=== PATIENT | male | born 1990 | race Caucasian/White ===

== ENCOUNTER 2018-09-19 08:04 | Emergency (ER) | payer OTHER, SELFPAY ==
[2018-09-19] MEDS ORDERED: LORazepam 2 MG/ML VIAL ONE ×2 (08:28→10:26)
[2018-09-19] MEDS ORDERED: NA CHLORIDE 0.9% 1,000 ML ONE ×2 (08:28→10:26)
[2018-09-19] MEDS ORDERED: FOLIC ACID 1 MG, THIAMINE HCL 100 MG, MULTIVITAMINS INJ 10 ML in NA CHLORIDE 0.9% 1,000 ML IV ONE (08:30)
[2018-09-19 08:47] LABS: Urine Blood NEGATIVE (NEG); Urine Glucose NEGATIVE (NEG); Urine Protein NEGATIVE (NEG); Urine Specific Gravity 1.015 (1.005-1.030); Urine pH 7.5 (5.0-7.0)
[2018-09-19 08:53] LABS: Barbiturates NEGATIVE (NEGATIVE); Benzodiazepines NEGATIVE (NEGATIVE); Cocaine NEGATIVE (NEGATIVE); METHAMPHETAM NEGATIVE (NEGATIVE); Methadone NEGATIVE (NEGATIVE); Opiates NEGATIVE (NEGATIVE); Phencyclidine NEGATIVE (NEGATIVE); THC Cannibis NEGATIVE (NEGATIVE)
[2018-09-19 08:55] LABS: Protime INR 1.05
[2018-09-19 09:03] LABS: Absolute Lymphocytes (CBC) 1.4 K/uL (0.7-4.9); Absolute Monocytes 0.8 K/uL (0.1-1.3); Absolute Neutrophil 5.8 K/uL (1.8-8.0); Basophils % 0.6 % (0-1.3); Eosinophils % 1.5 % (0-4.4); Hematocrit 39.3 % (39.6-49.0); Lymphocytes % 16.9 % (15.3-44.8); MCH 32.8 pg (27.0-35.0); MCV 90.5 fL (80-100); Monocytes % 9.6 % (3.3-12.3); RBC Red Blood Cell Count 4.34 M/uL (4.33-5.43)
[2018-09-19 09:06] LABS: ALT/SGPT 31 U/L (12-78); AST/SGOT 18 U/L (15-37); Albumin 3.6 g/dL (3.4-5.0); Alkaline Phosphatase 76 U/L (45-117); BUN Blood Urea Nitrogen 6 mg/dL (7-18); Bicarbonate 24 mmol/L (21-32); Bilirubin Direct 0.2 mg/dL (0-0.2); Bilirubin Total 0.7 mg/dL (0.2-1.0); Glucose Level 86 mg/dL (74-106); Potassium 3.8 mmol/L (3.5-5.1); Protein, Total 6.8 g/dL (6.4-8.2); Sodium Level 134 mmol/L (136-145); Troponin (Emerg Dept Use Only) < 0.02 ng/mL (0.0-0.045)
[2018-09-19] MEDS ORDERED: DIPHENHYDRAMINE 50 MG/ML VIAL ONE (10:30)
--- NOTE | 2018-09-19 10:37 | EKG ---
Test Date: 2018-09-19 Test Time: 08:10:35 Mice Raiser: MIRTA MEASUREMENT RESULTS: Intervals: Rate: 111 NE: 178 QRSD: 90 QT: 318 QTc: 432 [place]: P: 56 NE: 178 QRS: 75 T: 50 INTERPRETIVE STATEMENTS: Sinus tachycardia Otherwise normal ECG Compared to ECG 08/18/2017 22:19:40 Sinus rhythm no longer present Electronically Signed On 09-19-18 10:37:07 RATCHET SETTER by Tyree Ortiz
--- NOTE | 2018-09-19 13:08 | ER ---
Nurse's Notes [facility] Name: Philip Saldaña Age: 28 yrs Sex: Male : 1990 Arrival Date: 09/19/2018 Time: 08:03 Bed 7 Private MD: Diagnosis: Alcohol abuse;Alcohol abuse counseling and surveillance;Alcohol dependence with alcohol-induced anxiety disorder Presentation: 09/19 08:05 Presenting complaint: EMS states: ishmael been drinking for 3 days and my last drink is hj last night with beer; been complaining of chest pressure and shakiness; reports tachycardia on EKG to 120's;. Transition of care: patient was not received from another setting of care. Onset of symptoms was September 19, 2018. Risk Assessment: Do you want to hurt yourself or someone else? Patient reports no desire to harm self or others. Initial Sepsis Screen: Does the patient meet any 2 criteria? No. Patient's initial sepsis screen is negative. Does the patient have a suspected source of infection? No. Patient's initial sepsis screen is negative. Care prior to arrival: Medication(s) given: Normal saline infusion, 500 mL, IV initiated. 20 GA, in the right antecubital area. 08:05 Method Of Arrival: EMS: [facility] 08:05 Acuity: KASSIDY 3 hj Triage Assessment: 08:10 General: Appears in no apparent distress. uncomfortable, Behavior is calm, cooperative, hj appropriate for age. Pain: Complains of pain in chest Pain currently is 6 out of 10 on a pain scale. EENT: No signs and/or symptoms were reported regarding the EENT system. Neuro: Level of Consciousness is awake, alert, obeys commands, Oriented to person, place, time, situation, Appropriate for age. Cardiovascular: Capillary refill < 3 seconds Patient's skin is warm and dry. Respiratory: Airway is patent Respiratory effort is even, unlabored, Respiratory pattern is regular, symmetrical. GI: No signs and/or symptoms were reported involving the gastrointestinal system. : No signs and/or symptoms were reported regarding the genitourinary system. Derm: No signs and/or symptoms reported regarding the dermatologic system. Musculoskeletal: No signs and/or symptoms reported regarding the musculoskeletal system. Historical: - Allergies: 08:10 Sulfa (Sulfonamide Antibiotics); hj - Home Meds: 08:10 Omeprazole Oral once daily [Active]; hj - PMHx: 08:10 Alcoholism; Anxiety; HYPOGLYCEMIA; hj - PSHx: 08:10 nose; hj - Immunization history:: Adult Immunizations up to date. - Social history:: Smoking status: Patient/guardian denies using tobacco, Patient uses alcohol, on a daily basis. patient/guardian reports chronic longstanding heavy alcohol consumption. - Ebola Screening: : Patient negative for fever greater than or equal to 101.5 degrees Fahrenheit, and additional compatible Ebola Virus Disease symptoms Patient denies exposure to infectious person Patient denies travel to an Ebola-affected area in the 21 days before illness onset. Screenin:12 Abuse screen: Denies threats or abuse. Denies injuries from another. Nutritional hj screening: No deficits noted. Tuberculosis screening: No symptoms or risk factors identified. Fall Risk None identified. Assessment: 08:13 Pain: Pain does not radiate. Pain began suddenly. hj 08:15 Reassessment: see triage for assessment;. hj 09:30 Reassessment: Patient and/or family updated on plan of care and expected duration. Pain hj level reassessed. Patient is alert, oriented x 3, equal unlabored respirations, skin warm/dry/pink. Patient states feeling better. Patient states symptoms have improved. 10:14 Reassessment: Patient and/or family updated on plan of care and expected duration. Pain hj level reassessed. Patient is alert, oriented x 3, equal unlabored respirations, skin warm/dry/pink. states: "something stuck on my throat" pt is eating eggs from hosp breakfast tray;. 10:40 Reassessment: Patient and/or family updated on plan of care and expected duration. Pain hj level reassessed. Patient is alert, oriented x 3, equal unlabored respirations, skin warm/dry/pink. medicated and states: I think i feel better now" Patient states feeling better. Patient states symptoms have improved. 11:00 Reassessment: pt wheeled to the bathroom;. hj 11:05 Reassessment: Patient and/or family updated on plan of care and expected duration. Pain hj level reassessed. Patient is alert, oriented x 3, equal unlabored respirations, skin warm/dry/pink. back to room;. 12:24 Reassessment: Patient and/or family updated on plan of care and expected duration. Pain hj level reassessed. Patient is alert, oriented x 3, equal unlabored respirations, skin warm/dry/pink. to finished banana bag and pt can be discharged;. 13:39 Reassessment: D/C instructions given;. hj Vital Signs: 08:04 BP 140 / 80; Pulse 115; Resp 18; Temp 98.2(O); Pulse Ox 100% on R/A; Weight 72.57 kg; hj Height 6 ft. 0 in. (182.88 cm); Pain 6/10; 09:10 BP 137 / 83; Pulse 106; Resp 18; Pulse Ox 100% on R/A; hj 10:06 BP 103 / 77; Pulse 145; Resp 18; Pulse Ox 93% on R/A; hj 10:25 BP 123 / 88; Pulse 120; Resp 18; Pulse Ox 100% on 2 lpm NC; hj 10:40 BP 122 / 93; Pulse 111; Resp 18; Pulse Ox 100% on 2 lpm NC; hj 12:23 BP 132 / 95; Pulse 115; Resp 18; Pulse Ox 100% on 2 lpm NC; hj 13:39 BP 130 / 89; Pulse 98; Resp 18; Pulse Ox 100% on R/A; hj 08:04 Body Mass Index 21.70 (72.57 kg, 182.88 cm) hj 10:06 notified; states: "something stuck on my throat", pt ate eggs from hosp breakfast hj tray; ED Course: 08:03 Patient arrived in ED. hj 08:07 Triage completed. hj 08:08 Beck Sheridan RN is Primary Nurse. hj 08:11 Koby Pierson PA is PHCP. jr8 08:11 Akhil Harris MD is Attending Physician. jr8 08:12 Arm band placed on right wrist. hj 08:13 Patient has correct armband on for positive identification. Bed in low position. Call light in reach. Side rails up X 1. Adult w/ patient. allocations clerk on. 08:13 Patient maintains SpO2 saturation greater than 95% on room air. hj 08:18 EKG done, by tractor technician. reviewed by Koby CARDENAS. at1 08:18 Maintain EMS IV. Dressing intact. Good blood return noted. Site clean \\T\\ dry. Gauge \\T\\ hj site: 18 g R AC. 08:23 Initial lab(s) drawn, by me, sent to lab. 3 08:34 Urine Drug Screen Sent. hj 13:45 No provider procedures requiring assistance completed. IV discontinued, intact, hj bleeding controlled, No redness/swelling at site. Pressure dressing applied. Administered Medications: 08:14 Drug: NS 0.9% 1000 ml Route: IV; Rate: 1000 ml; Site: right antecubital; hj 09:30 Follow up: IV Status: Completed infusion hj 08:14 Drug: Ativan 2 mg Route: IVP; Site: right antecubital; hj 08:28 Follow up: Response: No adverse reaction; Anxiety decreased hj 09:09 Drug: Banana Bag - (NS 0.9% 1000 ml, foLIC Acid 1 mg, Thiamine 100 mg, Multivitamin 1 hj amp) Route: IV; Rate: calculated rate; Site: right antecubital; 13:41 Follow up: IV Status: Completed infusion hj 10:18 Drug: NS 0.9% 1000 ml Route: IV; Rate: 125 ml/hr; Site: right antecubital; hj 13:40 Follow up: IV Status: Completed infusion; provider ordered to bolus remaining NS' hj 10:18 Drug: Ativan 2 mg Route: IVP; Site: right antecubital; hj 10:43 Follow up: Response: No adverse reaction hj 10:20 Drug: Benadryl 25 mg Route: IVP; Site: right antecubital; hj 10:43 Follow up: Response: No adverse reaction hj Intake: Outcome: 13:08 Discharge ordered by . louise 13:45 Discharged to home ambulatory, with family. hj 13:45 Condition: stable 13:45 Discharge instructions given to patient, Instructed on discharge instructions, follow up and referral plans. medication usage, Demonstrated understanding of instructions, follow-up care, medications, Prescriptions given X 1. 13:46 Patient left the ED. Signatures: Koby Pierson PA PA jr8 Lyn Garzon, marriage therapist EKG Tat1 Beck Sheridan, CRIS RN Opal Harrington 3 Corrections: (The following items were deleted from the chart) 10:14 10:06 BP 103 / 77; Pulse 145bpm; Resp 18bpm; Pulse Ox 100% RA; notifie; hj hj 10:25 10:06 BP 103 / 77; Pulse 145bpm; Resp 18bpm; Pulse Ox 100% RA; notified; states: hj "something stuck on my throat", pt ate eggs from hosp breakfast tray;; hj
--- NOTE | 2018-09-19 13:09 | EDPHYS ---
Physician Documentation [facility] Name: Philip Saldaña Age: 28 yrs Sex: Male : 1990 Arrival Date: 09/19/2018 Time: 08:03 Bed 7 Private MD: ED Physician Akhil Harris HPI: 09/19 08:22 This 28 yrs old Male presents to ER via EMS with complaints of Chest jr8 Pressure, Vomiting. 08:22 Patient with longstanding history of alcoholism and abuse. Stated that he had been off jr8 of alcohol for a few months but just got off of a 3 day binge. Stated that last drink was yesterday morning sometime. Today with shaking, chest pressure. n/v, anxiety. Denies drug abuse. Onset: The symptoms/episode began/occurred suddenly, today. Severity of symptoms: At their worst the symptoms were moderate in the emergency department the symptoms are unchanged. The patient has experienced similar episodes in the past, a few times. The patient has not recently seen a physician. Historical: - Allergies: 08:10 Sulfa (Sulfonamide Antibiotics); hj - Home Meds: 08:10 Omeprazole Oral once daily [Active]; hj - PMHx: 08:10 Alcoholism; Anxiety; HYPOGLYCEMIA; hj - PSHx: 08:10 nose; hj - Immunization history:: Adult Immunizations up to date. - Social history:: Smoking status: Patient/guardian denies using tobacco, Patient uses alcohol, on a daily basis. patient/guardian reports chronic longstanding heavy alcohol consumption. - Ebola Screening: : Patient negative for fever greater than or equal to 101.5 degrees Fahrenheit, and additional compatible Ebola Virus Disease symptoms Patient denies exposure to infectious person Patient denies travel to an Ebola-affected area in the 21 days before illness onset. ROS: 08:22 Eyes: Negative for injury, pain, redness, and discharge, ENT: Negative for injury, jr8 pain, and discharge, Neck: Negative for injury, pain, and swelling, Respiratory: Negative for shortness of breath, cough, wheezing, and pleuritic chest pain, Back: Negative for injury and pain, MS/Extremity: Negative for injury and deformity, Skin: Negative for injury, rash, and discoloration, Neuro: Negative for headache, weakness, numbness, tingling, and seizure. 08:22 Cardiovascular: Positive for chest pain, Negative for edema, orthopnea, palpitations, paroxysmal nocturnal dyspnea. 08:22 Abdomen/GI: Positive for nausea and vomiting, Negative for abdominal pain, diarrhea, constipation, abdominal cramps, abdominal distension, anorexia, dysphagia, hematemesis, black/tarry stool, rectal pain, rectal bleeding, bowel incontinence, flatulence. 08:22 Psych: Positive for anxiety, alcohol dependence, Negative for auditory hallucinations, visual hallucinations, homicidal ideation, suicide gesture, suicidal ideation. Exam: 08:22 Eyes: Pupils equal round and reactive to light, extra-ocular motions intact. Lids and jr8 lashes normal. Conjunctiva and sclera are non-icteric and not injected. Cornea within normal limits. Periorbital areas with no swelling, redness, or edema. ENT: Nares patent. No nasal discharge, no septal abnormalities noted. Tympanic membranes are normal and external auditory canals are clear. Oropharynx with no redness, swelling, or masses, exudates, or evidence of obstruction, uvula midline. Mucous membranes moist. Neck: Trachea midline, no thyromegaly or masses palpated, and no cervical lymphadenopathy. Supple, full range of motion without nuchal rigidity, or vertebral point tenderness. No Meningismus. Respiratory: Lungs have equal breath sounds bilaterally, clear to auscultation and percussion. No rales, rhonchi or wheezes noted. No increased work of breathing, no retractions or nasal flaring. Abdomen/GI: Soft, non-tender, with normal bowel sounds. No distension or tympany. No guarding or rebound. No evidence of tenderness throughout. Back: No spinal tenderness. No costovertebral tenderness. Full range of motion. Skin: Warm, dry with normal turgor. Normal color with no rashes, no lesions, and no evidence of cellulitis. MS/ Extremity: Pulses equal, no cyanosis. Neurovascular intact. Full, normal range of motion. Neuro: Awake and alert, GCS 15, oriented to person, place, time, and situation. Cranial nerves II-XII grossly intact. Motor strength 5/5 in all extremities. Sensory grossly intact. Cerebellar exam normal. Normal gait. Resting tremor present 08:22 Constitutional: The patient appears alert, awake, anxious, restless. 08:22 Cardiovascular: Rate: tachycardic, Rhythm: regular, Pulses: Pulses are 2+ in right radial artery and left radial artery. Heart sounds: normal, normal S1and S2, no S3 or S4, no murmur, no rub, no gallop, Edema: is not appreciated, JVD: is not appreciated. 08:27 ECG was reviewed by the Attending Physician. jr8 Vital Signs: 08:04 BP 140 / 80; Pulse 115; Resp 18; Temp 98.2(O); Pulse Ox 100% on R/A; Weight 72.57 kg; hj Height 6 ft. 0 in. (182.88 cm); Pain 6/10; 09:10 BP 137 / 83; Pulse 106; Resp 18; Pulse Ox 100% on R/A; hj 10:06 BP 103 / 77; Pulse 145; Resp 18; Pulse Ox 93% on R/A; hj 10:25 BP 123 / 88; Pulse 120; Resp 18; Pulse Ox 100% on 2 lpm NC; hj 10:40 BP 122 / 93; Pulse 111; Resp 18; Pulse Ox 100% on 2 lpm NC; hj 12:23 BP 132 / 95; Pulse 115; Resp 18; Pulse Ox 100% on 2 lpm NC; hj 13:39 BP 130 / 89; Pulse 98; Resp 18; Pulse Ox 100% on R/A; hj 08:04 Body Mass Index 21.70 (72.57 kg, 182.88 cm) hj 10:06 MD notified; states: "something stuck on my throat", pt ate eggs from hosp breakfast hj tray; MDM: 08:11 Patient medically screened. jr8 13:06 Data reviewed: vital signs, nurses notes, lab test result(s), EKG. Data interpreted: jr8 Pulse oximetry: on room air is 100 %. Interpretation: normal. Counseling: I had a detailed discussion with the patient and/or guardian regarding: the historical points, exam findings, and any diagnostic results supporting the discharge/admit diagnosis, lab results, the need for outpatient follow up, a family practitioner, to return to the emergency department if symptoms worsen or persist or if there are any questions or concerns that arise at home. Response to treatment: the patient's symptoms have markedly improved after treatment, patient is well hydrated. 13:13 ED course: Patient feeling much better. No longer with resting tremor. Anxiety gone. HR jr8 markedly decreased. Wants to go home. Will put on Librium for detox. To come back if worse. . 09/19 08:11 Order name: Acetaminophen; Complete Time: 09:13 [facility] 09/19 08:11 Order name: Basic Metabolic Panel; Complete Time: 09:13 8 09/19 08:11 Order name: CBC with Diff; Complete Time: 09:13 8 09/19 08:11 Order name: ETOH Level; Complete Time: 08:48 8 09/19 08:11 Order name: Hepatic Function; Complete Time: 09:13 [facility] 09/19 08:11 Order name: PT-INR; Complete Time: 09:13 8 09/19 08:11 Order name: Ptt, Activated; Complete Time: 09: [facility] 09/19 08:11 Order name: Salicylate; Complete Time: 09:13 [facility] 09/19 08:11 Order name: Urine Drug Screen; Complete Time: 09:13 [facility] 09/19 08:11 Order name: Troponin (emerg Dept Use Only); Complete Time: 09:13 [facility] 09/19 08:36 Order name: Urine Dipstick--Ancillary (enter results); Complete Time: 08:48 09/19 08:11 Order name: EKG; Complete Time: 08:12 [facility] 09/19 08:11 Order name: EKG - Nurse/Tech; Complete Time: 08:14 [facility] 09/19 08:11 Order name: IV Saline Lock; Complete Time: 08:14 [facility] 09/19 08:11 Order name: Labs collected and sent; Complete Time: 08:26 [facility] 09/19 08:11 Order name: Urine Dipstick-Ancillary (obtain specimen); Complete Time: 08:34 [facility] 09/19 08:45 Order name: Diet Regular; Complete Time: 08:46 EC:27 Rate is 111 beats/min. Rhythm is regular, Sinus tachycardia. [place] interval is normal at jr8 178 msec. QRS interval is normal at 90 msec. QT interval is normal at 432 msec. No Q waves. T waves are Normal. No ST changes noted. Clinical impression: Sinus tachycardia. Interpreted by me. Reviewed by me. Administered Medications: 08:14 Drug: NS 0.9% 1000 ml Route: IV; Rate: 1000 ml; Site: right antecubital; hj 09:30 Follow up: IV Status: Completed infusion hj 08:14 Drug: Ativan 2 mg Route: IVP; Site: right antecubital; hj 08:28 Follow up: Response: No adverse reaction; Anxiety decreased hj 09:09 Drug: Banana Bag - (NS 0.9% 1000 ml, foLIC Acid 1 mg, Thiamine 100 mg, Multivitamin 1 hj amp) Route: IV; Rate: calculated rate; Site: right antecubital; 13:41 Follow up: IV Status: Completed infusion hj 10:18 Drug: NS 0.9% 1000 ml Route: IV; Rate: 125 ml/hr; Site: right antecubital; hj 13:40 Follow up: IV Status: Completed infusion; provider ordered to bolus remaining NS' hj 10:18 Drug: Ativan 2 mg Route: IVP; Site: right antecubital; hj 10:43 Follow up: Response: No adverse reaction hj 10:20 Drug: Benadryl 25 mg Route: IVP; Site: right antecubital; hj 10:43 Follow up: Response: No adverse reaction hj Disposition: 15:44 Co-signature as Attending Physician, Akhil Harris MD. rn Disposition: 09/19/18 13:08 Discharged to Home. Impression: Alcohol abuse, Alcohol abuse counseling and surveillance, Alcohol dependence with alcohol-induced anxiety disorder. - Condition is Stable. - Discharge Instructions: Alcohol Intoxication, Alcohol Use Disorder. - Prescriptions for chlordiazepoxide HCl 25 mg Oral capsule - take 2 capsule by ORAL route 4 times per day As needed up to 300 mg/day; 60 capsule. - Medication Reconciliation Form, Thank You Letter, Antibiotic Education, Prescription Opioid Use form. - Follow up: Private Physician; When: 1 - 2 days; Reason: Recheck today's complaints, Continuance of care, Re-evaluation by your physician. - Problem is new. - Symptoms have improved. Signatures: Dispatcher [employer] EDMS Akhil Harris MD MD rn Roszak, Josh, PA PA jr8 Beck Sheridan RN RN hj Corrections: (The following items were deleted from the chart) 13:46 13:08 09/19/2018 13:08 Discharged to Home. Impression: Alcohol abuse; Alcohol abuse hj counseling and surveillance; Alcohol dependence with alcohol-induced anxiety disorder. Condition is Stable. Forms are Medication Reconciliation Form, Thank You Letter, Antibiotic Education, Prescription Opioid Use. Follow up: Private Physician; When: 1 - 2 days; Reason: Recheck today's complaints, Continuance of care, Re-evaluation by your physician. Problem is new. Symptoms have improved. jr8
== END 2018-09-19 13:46 | disposition home or self-care (01) ==
LOC: ER 08:04
DX: F10.280 Alcohol dependence with alcohol-induced anxiety disorder (principal); F10.20 Alcohol dependence, uncomplicated; Z71.41 Alcohol abuse counseling and surveillance of alcoholic; Z88.2 Allergy status to sulfonamides
CPT/HCPCS: 36415; 80048; 80076; 80307; 80320; 80329; 81003; 84484; 85025; 85610; 85730; 93005; 96361; 96365; 96366; 96375; 99285; J3411; J7030

== ENCOUNTER 2019-07-31 04:24 | Emergency (ER) | payer OTHER ==
[2019-07-31] MEDS ORDERED: MAGNE/ALUM HYDROXD 30 ML UCUP ONE (04:47)
[2019-07-31] MEDS ORDERED: LIDOCAINE VISCOUS 2% SOLN 15 ML UDC ONE (04:48)
[2019-07-31] MEDS ORDERED: PANTOPRAZOLE 40MG TABLET PO ONE (04:48)
--- NOTE | 2019-07-31 05:41 | ER ---
Nurse's Notes [facility] Name: Philip Saldaña Age: 29 yrs Sex: Male : 1990 Arrival Date: 07/31/2019 Time: 04:25 Bed 18 Private MD: Diagnosis: Gastritis, unspecified Presentation: 07/31 04:38 Presenting complaint: Patient states: He is a binge drinker, been drinking for 3 days wh without eating much. Now C/O acid reflux, nausea and vomiting. Pt has HX of GERD and Alcohol abuse taking Omeprazole. Transition of care: patient was not received from another setting of care. Onset of symptoms was July 31, 2019. Risk Assessment: Do you want to hurt yourself or someone else? Patient reports no desire to harm self or others. Initial Sepsis Screen: Does the patient meet any 2 criteria? No. Patient's initial sepsis screen is negative. Does the patient have a suspected source of infection? No. Patient's initial sepsis screen is negative. Care prior to arrival: None. 04:38 Method Of Arrival: Ambulatory 04:38 Acuity: KASSIDY 3 Historical: - Allergies: 04:47 Sulfa (Sulfonamide Antibiotics); - Home Meds: 04:47 Omeprazole Oral [Active]; - PMHx: 04:47 Anxiety; HYPOGLYCEMIA; Alcoholism; GERD; - PSHx: 04:47 None; - Immunization history:: Adult Immunizations up to date. - Social history:: Smoking status: Patient uses tobacco products, Patient uses alcohol, patient/guardian reports recent binge of alcohol consumption. - Ebola Screening: : Patient negative for fever greater than or equal to 101.5 degrees Fahrenheit, and additional compatible Ebola Virus Disease symptoms Patient denies exposure to infectious person. Screenin:46 Abuse screen: Denies threats or abuse. Denies injuries from another. Nutritional screening: No deficits noted. Tuberculosis screening: No symptoms or risk factors identified. Fall Risk None identified. Assessment: 04:48 General: Appears in no apparent distress. Behavior is calm, cooperative, appropriate wh for age, Smells of alcohol. Pain: Complains of pain in epigastric area Pain does not radiate. Pain currently is 8 out of 10 on a pain scale. Quality of pain is described as burning, Pain began 1 day ago. Neuro: Level of Consciousness is awake, alert, obeys commands, Oriented to person, place, time, situation, Appropriate for age. Cardiovascular: Heart tones S1 S2. Respiratory: Airway is patent Respiratory effort is even, unlabored, Respiratory pattern is regular, symmetrical, Breath sounds are clear bilaterally. GI: Abdomen is flat, non-distended, Abd is soft and non tender X 4 quads. : No signs and/or symptoms were reported regarding the genitourinary system. EENT: No signs and/or symptoms were reported regarding the EENT system. Derm: Skin is intact, is healthy with good turgor, Skin is pink, warm \T\ dry. normal. Musculoskeletal: Circulation, motion, and sensation intact. 05:50 Reassessment: Patient appears in no apparent distress at this time. No changes from previously documented assessment. Patient and/or family updated on plan of care and expected duration. Pain level reassessed. Patient is alert, oriented x 3, equal unlabored respirations, skin warm/dry/pink. Patient states feeling better. Patient states symptoms have improved. Vital Signs: 04:40 BP 125 / 72; Pulse 18; Resp 18; Temp 98.7; Pulse Ox 99% ; Weight 77.11 kg; Height 6 ft. (182.88 cm); 05:49 BP 119 / 75; Pulse 92; Resp 18; Pulse Ox 98% on R/A; 04:40 Body Mass Index 23.06 (77.11 kg, 182.88 cm) ED Course: 04:25 Patient arrived in ED. ds1 04:33 Fariha Schaeffer is Primary Nurse. wh 04:40 Triage completed. 04:41 Todd Patel MD is Attending Physician. tw4 04:47 Patient has correct armband on for positive identification. Bed in low position. Call light in reach. Side rails up X 1. Pulse ox on. NIBP on. 04:48 Arm band placed on right wrist. 05:48 No provider procedures requiring assistance completed. Patient did not have IV access during this emergency room visit. Administered Medications: 04:51 Drug: GI Cocktail without - (Maalox Suspension 30 ml, Lidocaine Liquid 2 % 15 ea ml) Route: PO; 05:48 Follow up: Response: No adverse reaction; Pain is decreased 04:51 Drug: ProTONIX 40 mg Route: PO; moe 05:49 Follow up: Response: No adverse reaction; Pain is decreased Outcome: 05:40 Discharge ordered by tw4 05:48 Discharged to home ambulatory. 05:48 Condition: stable 05:48 Discharge instructions given to patient, Instructed on discharge instructions, follow up and referral plans. medication usage, POC Acute Gastritis and Alcohol Abuse Demonstrated understanding of instructions, follow-up care, medications, POC Prescriptions given X 1. 05:49 Patient left the ED. Signatures: Angy Da Silva ds1 Cande Jin, RN Fariha Flores ea Todd Patel MD MD tw4
--- NOTE | 2019-07-31 05:41 | EDPHYS ---
Physician Documentation [facility] Name: Philip Saldaña Age: 29 yrs Sex: Male : 1990 Arrival Date: 07/31/2019 Time: 04:25 Bed 18 Private MD: ED Physician Todd Patel HPI: 07/31 05:38 This 29 yrs old Male presents to ER via Ambulatory with complaints of Alcohol tw4 Withdrawal, Pain with Breathing. 05:38 The patient presents with abdominal pain. Onset: The symptoms/episode began/occurred tw4 today. The symptoms do not radiate. Associated signs and symptoms: Pertinent positives: nausea, Pertinent negatives: vomiting, vomiting blood. The symptoms are described as burning. Modifying factors: The symptoms are alleviated by nothing, the symptoms are aggravated by alcohol. Severity of pain: At its worst the pain was mild in the emergency department the pain is unchanged. The patient has not experienced similar symptoms in the past. Historical: - Allergies: 04:47 Sulfa (Sulfonamide Antibiotics); - Home Meds: 04:47 Omeprazole Oral [Active]; - PMHx: 04:47 Anxiety; HYPOGLYCEMIA; Alcoholism; GERD; - PSHx: 04:47 None; - Immunization history:: Adult Immunizations up to date. - Social history:: Smoking status: Patient uses tobacco products, Patient uses alcohol, patient/guardian reports recent binge of alcohol consumption. - Ebola Screening: : Patient negative for fever greater than or equal to 101.5 degrees Fahrenheit, and additional compatible Ebola Virus Disease symptoms Patient denies exposure to infectious person. ROS: 05:38 Constitutional: Negative for fever, chills, and weight loss, Eyes: Negative for injury, tw4 pain, redness, and discharge, Cardiovascular: Negative for chest pain, palpitations, and edema, Respiratory: Negative for shortness of breath, cough, wheezing, and pleuritic chest pain, Back: Negative for injury and pain, MS/Extremity: Negative for injury and deformity, Skin: Negative for injury, rash, and discoloration, Neuro: Negative for headache, weakness, numbness, tingling, and seizure. 05:38 Abdomen/GI: Positive for abdominal cramps. Exam: 05:38 Constitutional: This is a well developed, well nourished patient who is awake, alert, tw4 and in no acute distress. Head/Face: Normocephalic, atraumatic. Chest/axilla: Normal chest wall appearance and motion. Nontender with no deformity. No lesions are appreciated. Cardiovascular: Regular rate and rhythm with a normal S1 and S2. No gallops, murmurs, or rubs. Normal PMI, no JVD. No pulse deficits. Respiratory: Lungs have equal breath sounds bilaterally, clear to auscultation and percussion. No rales, rhonchi or wheezes noted. No increased work of breathing, no retractions or nasal flaring. Abdomen/GI: Soft, non-tender, with normal bowel sounds. No distension or tympany. No guarding or rebound. No evidence of tenderness throughout. Back: No spinal tenderness. No costovertebral tenderness. Full range of motion. MS/ Extremity: Pulses equal, no cyanosis. Neurovascular intact. Full, normal range of motion. Neuro: Awake and alert, GCS 15, oriented to person, place, time, and situation. Cranial nerves II-XII grossly intact. Motor strength 5/5 in all extremities. Sensory grossly intact. Cerebellar exam normal. Normal gait. Vital Signs: 04:40 BP 125 / 72; Pulse 18; Resp 18; Temp 98.7; Pulse Ox 99% ; Weight 77.11 kg; Height 6 ft. wh (182.88 cm); 05:49 BP 119 / 75; Pulse 92; Resp 18; Pulse Ox 98% on R/A; wh 04:40 Body Mass Index 23.06 (77.11 kg, 182.88 cm) MDM: 04:41 Patient medically screened. tw4 05:38 Differential diagnosis: gastritis, gastroesophageal reflux disease, GI Bleed, tw4 Hepatitis. Data reviewed: vital signs, nurses notes. Data interpreted: Pulse oximetry: Interpretation: normal. Medication response: GI Cocktail relieved the patient's pain. The symptoms have resolved. Response to treatment: the patient's symptoms have resolved after treatment, and as a result, I will discharge patient. Special discussion: I discussed with the patient/guardian in detail that at this point there is no indication for admission to the hospital. It is understood, however, that if the symptoms persist or worsen the patient needs to return immediately for re-evaluation. Administered Medications: 04:51 Drug: GI Cocktail without - (Maalox Suspension 30 ml, Lidocaine Liquid 2 % 15 ea ml) Route: PO; 05:48 Follow up: Response: No adverse reaction; Pain is decreased 04:51 Drug: ProTONIX 40 mg Route: PO; ea 05:49 Follow up: Response: No adverse reaction; Pain is decreased Disposition: 07/31/19 05:40 Discharged to Home. Impression: Gastritis, unspecified. - Condition is Stable. - Discharge Instructions: Alcohol Use Disorder, Gastritis, Adult, [id number], Alcohol Abuse and Nutrition. - Prescriptions for Carafate 1 gram Oral Tablet - take 1 tablet by ORAL route 4 times per day take on an empty stomach, beginning on waking and last dose at bedtime; 100 tablet. - Medication Reconciliation Form, Thank You Letter, Antibiotic Education, Prescription Opioid Use form. - Follow up: Private Physician; When: Upon discharge from the Emergency Department; Reason: Recheck today's complaints, Continuance of care. - Problem is new. - Symptoms have improved. Signatures: Cande Jin RN RN ea Habalo, Winsy wh Wadley, Terrence, MD MD tw4 Corrections: (The following items were deleted from the chart) 05:49 05:40 07/31/2019 05:40 Discharged to Home. Impression: Gastritis, unspecified. Condition is Stable. Forms are Medication Reconciliation Form, Thank You Letter, Antibiotic Education, Prescription Opioid Use. Follow up: Private Physician; When: Upon discharge from the Emergency Department; Reason: Recheck today's complaints, Continuance of care. Problem is new. Symptoms have improved. tw4
[2019-07-31 05:54] VITALS: TEMP 98.7
[2019-07-31 05:56] VITALS: BP 119/75; O2SAT 98
== END 2019-07-31 05:49 | disposition home or self-care (01) ==
LOC: ER 04:24
DX: K29.70 Gastritis, unspecified, without bleeding (principal); K21.9 Gastro-esophageal reflux disease without esophagitis; F10.10 Alcohol abuse, uncomplicated; Z88.2 Allergy status to sulfonamides; Z72.0 Tobacco use
CPT/HCPCS: 99283

== ENCOUNTER 2019-11-13 11:18 | Emergency (ER) | payer OTHER ==
[2019-11-13] MEDS ORDERED: NA CHLORIDE 0.9% 1,000 ML ONE (11:53)
[2019-11-13] MEDS ORDERED: LORazepam 2 MG/ML VIAL ONE (11:53)
[2019-11-13] MEDS ORDERED: NA CHLORIDE 0.9% 1,000 ML with FOLIC ACID 1 MG, THIAMINE HCL 100 MG, MULTIVITAMINS INJ ... IV ONE ×4 (12:00)
[2019-11-13 12:22] LABS: Absolute Lymphocytes (CBC) 0.9 K/uL (0.7-4.9); Basophils % 0.3 % (0-1.3); Hematocrit 44.9 % (39.6-49.0); Lymphocytes % 8.5 % (15.3-44.8); MPV 7.9 fL (7.6-11.3); RBC Red Blood Cell Count 4.82 M/uL (4.33-5.43)
[2019-11-13 12:37] LABS: BUN Blood Urea Nitrogen 7 mg/dL (7-18); Bicarbonate 27 mmol/L (21-32); Glucose Level 91 mg/dL (74-106); Potassium 3.9 mmol/L (3.5-5.1); Sodium Level 128 mmol/L (136-145)
--- NOTE | 2019-11-13 12:59 | RAD REPORT ---
EXAM DESCRIPTION: RAD - Neck Soft Tissue - 11/13/2019 12:48 pm CLINICAL HISTORY: foreign body sensation Pain and swelling COMPARISON: No comparisons FINDINGS: Prevertebral soft tissues are normal. Epiglottis and aryepiglottic folds are normal. Air c olumn is patent. No foreign body is seen. IMPRESSION: Negative study.
--- NOTE | 2019-11-13 13:27 | ER ---
Nurse's Notes [facility] Name: Philip Saldaña Age: 29 yrs Sex: Male : 1990 Arrival Date: 11/13/2019 Time: 11:22 Bed 20 Private MD: Diagnosis: Cough;Vomiting;Alcohol abuse, uncomplicated Presentation: 11/13 11:29 Presenting complaint: Patient states: I went on a ludwig for about two or three days, I sg drink about a bottle of vodka a day, last bottle finished yesterday evening, nothing to drink this morning. Reports having the sensation of something caught in his throat, denies choking or having swallowed anything, reports history of Hiatal hernia and would like to have that assessed. Transition of care: patient was not received from another setting of care. Onset of symptoms was November 13, 2019. Risk Assessment: Do you want to hurt yourself or someone else? Patient reports no desire to harm self or others. Initial Sepsis Screen: Does the patient meet any 2 criteria? HR > 90 bpm. Does the patient have a suspected source of infection? No. Patient's initial sepsis screen is negative. Care prior to arrival: None. 11:29 Method Of Arrival: Ambulatory sg 11:29 Acuity: KASSIDY 3 sg Triage Assessment: 11:30 General: Appears in no apparent distress. ill, well groomed, well developed, well sg nourished, Behavior is calm, cooperative, appropriate for age. General: Appears slender. Pain: Complains of pain in abdomen and neck Quality of pain is described as aching, throbbing. EENT: Nares are clear bilaterally Oral mucosa is moist. Throat is pink Reports pain when swallowing. Neuro: Level of Consciousness is awake, alert, obeys commands, Oriented to person, place, time, Speech is normal, Facial symmetry appears normal. Cardiovascular: Capillary refill is brisk in bilateral fingers Patient's skin is warm and dry. Chest pain is denied. Respiratory: Reports cough that is dry, hacking, Airway is patent Respiratory effort is even, unlabored, Respiratory pattern is regular, symmetrical, Breath sounds are clear. GI: Abdomen is flat, non-distended, Reports upper abdominal pain, anorexia, epigastric pain. : No signs and/or symptoms were reported regarding the genitourinary system. Derm: Skin is pink, warm \T\ dry. Musculoskeletal: Circulation, motion, and sensation intact. Range of motion: intact in all extremities. Historical: - Allergies: 11:31 Sulfa (Sulfonamide Antibiotics); sg - PMHx: 11:31 Alcoholism; Anxiety; GERD; HYPOGLYCEMIA; sg - PSHx: 11:31 None; sg - Immunization history:: Adult Immunizations not up to date. - Coronavirus screen:: The patient has NOT traveled to [place], [place], or [place] in the past 14 days. The patient has NOT had contact with known/suspected case of Coronavirus?. - Social history:: Smoking status: Patient reports the use of cigarette tobacco products. - Ebola Screening: : Patient negative for fever greater than or equal to 101.5 degrees Fahrenheit, and additional compatible Ebola Virus Disease symptoms Patient denies exposure to infectious person Patient denies travel to an Ebola-affected area in the 21 days before illness onset No symptoms or risks identified at this time. Screenin:00 Abuse screen: Denies threats or abuse. Denies injuries from another. Nutritional sg screening: No deficits noted. Tuberculosis screening: No symptoms or risk factors identified. Never had TB. Fall Risk None identified. Assessment: 12:27 Reassessment: Patient appears in no apparent distress at this time. Patient and/or sg family updated on plan of care and expected duration. Pain level reassessed. Patient is alert, oriented x 3, equal unlabored respirations, skin warm/dry/pink. 12:34 Reassessment: Patient appears in no apparent distress at this time. xrray at bedside at this time. Vital Signs: 11:30 BP 148 / 91; Pulse 106; Resp 18; Temp 97.8; Pulse Ox 100% on R/A; Pain 4/10; sg 12:28 BP 145 / 88; Pulse 100; Resp 18; Pulse Ox 100% on R/A; sg 12:35 BP 107 / 93; Pulse 110; Resp 18; Temp 98.3(O); Pulse Ox 98% on R/A; mh5 13:30 BP 118 / 82; Pulse 90; Resp 18; Temp 97.7; Pulse Ox 100% on R/A; Pain 2/10; sg ED Course: 11:22 Patient arrived in ED. mr 11:29 Mark Brown, CRIS is Primary Nurse. sg 11:29 Nikolai Franklin FNP-C is PHCP. la1 11:29 Akhil Harris MD is Attending Physician. la1 11:30 Triage completed. sg 11:30 Patient has correct armband on for positive identification. Bed in low position. Call sg light in reach. Side rails up X2. Pulse ox on. NIBP on. Warm blanket given. Head of bed elevated. 11:31 Arm band placed on. sg 11:50 Initial lab(s) drawn, by me, sent to lab. Inserted saline lock: 22 gauge in right sg antecubital area, using aseptic technique. Blood collected. 12:47 X-ray completed. Portable x-ray completed in exam room. Patient tolerated procedure je2 well. 13:50 No provider procedures requiring assistance completed. IV discontinued, intact, sg bleeding controlled, No redness/swelling at site. Pressure dressing applied. Administered Medications: 12:00 Drug: NS 0.9% 1000 ml Route: IV; Rate: 1000 ml; Site: right antecubital; sg 13:00 Follow up: Response: No adverse reaction; IV Status: Completed infusion; IV Intake: sg 1000ml 12:00 Drug: Ativan 1 mg Route: IVP; Site: right antecubital; sg 12:30 Follow up: Response: No adverse reaction; Anxiety decreased sg 12:20 Drug: Banana Bag - (NS 0.9% 1000 ml, foLIC Acid 1 mg, Thiamine 100 mg, Multivitamin 1 sg amp) Route: IV; Rate: 250 ml/hr; Site: right antecubital; 13:30 Follow up: Response: No adverse reaction; Marked relief of symptoms; IV Status: Order sg to discontinue infusion; IV Intake: 500ml Intake: 13:00 IV: 1000ml; Total: 1000ml. sg 13:30 IV: 500ml; Total: 1500ml. sg Outcome: 13:26 Discharge ordered by . la1 13:50 Discharged to home ambulatory, with family. sg 13:50 Condition: good 13:50 Discharge instructions given to patient, Instructed on discharge instructions, follow up and referral plans. medication usage, safety practices, Demonstrated understanding of instructions, follow-up care, medications, Prescriptions given X 1. 13:59 Patient left the ED. sg Signatures: Mark Brown RN RN sg Rivera, Mary mr Attema, Lee, FNP-C FNP-Cla1 Betty Nava 5 Jony Pace2
--- NOTE | 2019-11-13 13:28 | EDPHYS ---
Physician Documentation [facility] Name: Philip Saldaña Age: 29 yrs Sex: Male : 1990 Arrival Date: 11/13/2019 Time: 11:22 Bed 20 Private MD: ED Physician Akhil Harris HPI: 11/13 11:58 This 29 yrs old Male presents to ER via Ambulatory with complaints of Cough, la1 Sore Throat. 11:58 The patient or guardian reports cough and foreign body sensation. Onset: The la1 symptoms/episode began/occurred last night. Severity of symptoms: At their worst the symptoms were mild. Modifying factors: The symptoms are alleviated by nothing, the symptoms are aggravated by nothing. Associated signs and symptoms: The patient has no apparent associated signs or symptoms. The patient has not experienced similar symptoms in the past. pt reports he is an alcoholic, has been drinking for the last three days, last drink was last night, now feels dehydrated and like there is something in his throat, tolerating PO, voice is normal. ]. Historical: - Allergies: 11:31 Sulfa (Sulfonamide Antibiotics); sg - PMHx: 11:31 Alcoholism; Anxiety; GERD; HYPOGLYCEMIA; sg - PSHx: 11:31 None; sg - Immunization history:: Adult Immunizations not up to date. - Coronavirus screen:: The patient has NOT traveled to [place], [place], or [place] in the past 14 days. The patient has NOT had contact with known/suspected case of Coronavirus?. - Social history:: Smoking status: Patient reports the use of cigarette tobacco products. - Ebola Screening: : Patient negative for fever greater than or equal to 101.5 degrees Fahrenheit, and additional compatible Ebola Virus Disease symptoms Patient denies exposure to infectious person Patient denies travel to an Ebola-affected area in the 21 days before illness onset No symptoms or risks identified at this time. ROS: 12:00 Constitutional: Negative for fever, chills, and weight loss, Eyes: Negative for injury, la1 pain, redness, and discharge, ENT: + for foreign body sensation in throat Neck: Negative for injury, pain, and swelling, Cardiovascular: Negative for chest pain, palpitations, and edema, Respiratory: + for cough Abdomen/GI: reports vomiting last night Back: Negative for injury and pain, : Negative for injury, bleeding, discharge, and swelling, MS/Extremity: Negative for injury and deformity, Skin: Negative for injury, rash, and discoloration, Neuro: Negative for headache, weakness, numbness, tingling, and seizure, Endocrine: Negative for neck swelling, polydipsia, polyuria, polyphagia, and marked weight changes. Exam: 12:01 Constitutional: This is a well developed, well nourished patient who is awake, alert, la1 and in no acute distress. Head/Face: Normocephalic, atraumatic. Eyes: Pupils equal round and reactive to light, extra-ocular motions intact. Lids and lashes normal. Conjunctiva and sclera are non-icteric and not injected. Cornea within normal limits. Periorbital areas with no swelling, redness, or edema. ENT: Nares patent. No nasal discharge, no septal abnormalities noted. Tympanic membranes are normal and external auditory canals are clear. Oropharynx with no redness, swelling, or masses, exudates, or evidence of obstruction, uvula midline. Mucous membranes moist. Neck: Trachea midline, no thyromegaly or masses palpated, and no cervical lymphadenopathy. Supple, full range of motion without nuchal rigidity, or vertebral point tenderness. No Meningismus. Chest/axilla: Normal chest wall appearance and motion. Nontender with no deformity. No lesions are appreciated. Cardiovascular: Regular rate and rhythm with a normal S1 and S2. No gallops, murmurs, or rubs. Normal PMI, no JVD. No pulse deficits. Respiratory: Lungs have equal breath sounds bilaterally, clear to auscultation Abdomen/GI: Soft, non-tender, with normal bowel sounds. No distension or tympany. No guarding or rebound. No evidence of tenderness throughout. Back: No spinal tenderness. No costovertebral tenderness. Full range of motion. Skin: Warm, dry with normal turgor. Normal color with no rashes, no lesions, and no evidence of cellulitis. Neuro: Awake and alert, GCS 15, oriented to person, place, time, and situation. Cranial nerves II-XII grossly intact. Motor strength 5/5 in all extremities. Sensory grossly intact. Cerebellar exam normal. Normal gait. Vital Signs: 11:30 BP 148 / 91; Pulse 106; Resp 18; Temp 97.8; Pulse Ox 100% on R/A; Pain 4/10; sg 12:28 BP 145 / 88; Pulse 100; Resp 18; Pulse Ox 100% on R/A; sg 12:35 BP 107 / 93; Pulse 110; Resp 18; Temp 98.3(O); Pulse Ox 98% on R/A; mh5 13:30 BP 118 / 82; Pulse 90; Resp 18; Temp 97.7; Pulse Ox 100% on R/A; Pain 2/10; sg MDM: 11:33 Patient medically screened. la1 13:24 Data reviewed: vital signs, nurses notes, lab test result(s), radiologic studies, I la1 have discussed the patient's presentation/case with the attending Emergency Department Physician; and as a result, I will discharge patient. Data interpreted: Pulse oximetry: on room air is 98 %. Counseling: I had a detailed discussion with the patient and/or guardian regarding: the historical points, exam findings, and any diagnostic results supporting the discharge/admit diagnosis, lab results, radiology results, the need for outpatient follow up, a family practitioner, to return to the emergency department if symptoms worsen or persist or if there are any questions or concerns that arise at home. Medication response: Zofran markedly relieved the patient's nausea. Special discussion: Based on the history and exam findings, there is no indication for further emergent testing or inpatient evaluation. I discussed with the patient/guardian the need to see the primary care provider for further evaluation of the symptoms. 11/13 11:46 Order name: CBC with Diff la1 11/13 11:46 Order name: BMP la1 11/13 11:46 Order name: Neck Soft Tissue XRAY 1 11/13 12:27 Order name: Glucose, Ancillary Testing; Complete Time: 12:39 EDMS 11/13 12:37 Order name: CBC with Automated Diff; Complete Time: 12:39 EDMS 11/13 12:42 Order name: Basic Metabolic Panel; Complete Time: 12:51 EDMS 11/13 11:46 Order name: IV; Complete Time: 11:46 la1 Administered Medications: 12:00 Drug: NS 0.9% 1000 ml Route: IV; Rate: 1000 ml; Site: right antecubital; sg 13:00 Follow up: Response: No adverse reaction; IV Status: Completed infusion; IV Intake: sg 1000ml 12:00 Drug: Ativan 1 mg Route: IVP; Site: right antecubital; sg 12:30 Follow up: Response: No adverse reaction; Anxiety decreased sg 12:20 Drug: Banana Bag - (NS 0.9% 1000 ml, foLIC Acid 1 mg, Thiamine 100 mg, Multivitamin 1 sg amp) Route: IV; Rate: 250 ml/hr; Site: right antecubital; 13:30 Follow up: Response: No adverse reaction; Marked relief of symptoms; IV Status: Order sg to discontinue infusion; IV Intake: 500ml Disposition: 15:53 Co-signature as Attending Physician, Akhil Harris MD. rn Disposition: 11/13/19 13:26 Discharged to Home. Impression: Cough, Vomiting, Alcohol abuse, uncomplicated. - Condition is Stable. - Discharge Instructions: Alcohol Use Disorder, Nausea and Vomiting, Adult, Alcohol Abuse and Nutrition, Cough, Adult. - Prescriptions for Zofran 4 mg Oral Tablet - take 1 tablet by ORAL route every 12 hours As needed; 6 tablet. - Work release form, Medication Reconciliation Form, Thank You Letter form. - Follow up: Private Physician; When: 2 - 3 days; Reason: Recheck today's complaints, Re-evaluation by your physician. - Problem is new. - Symptoms have improved. Signatures: Dispatcher [employer] Mark De La Cruz RN RN sg Nieto, Roman, MD MD rn Attema, Lee, ELEMENTARY SCHOOL LIBRARIAN-C ELEMENTARY SCHOOL LIBRARIAN-Cla1 Corrections: (The following items were deleted from the chart) 13:59 13:26 11/13/2019 13:26 Discharged to Home. Impression: Cough; Vomiting; Alcohol abuse, sg uncomplicated. Condition is Stable. Forms are Medication Reconciliation Form, Thank You Letter, Antibiotic Education, Prescription Opioid Use. Follow up: Private Physician; When: 2 - 3 days; Reason: Recheck today's complaints, Re-evaluation by your physician. Problem is new. Symptoms have improved. la1
[2019-11-13 14:27] VITALS: BP 107/93; TEMP 98.3; O2SAT 98
== END 2019-11-13 13:59 | disposition home or self-care (01) ==
LOC: ER 11:18
DX: R11.10 Vomiting, unspecified (principal); F10.10 Alcohol abuse, uncomplicated; Z88.2 Allergy status to sulfonamides
CPT/HCPCS: 96365; 85025; 80048; 36415; 82947; 70360; 96375; 99284; J3411; J7030 ×2

== ENCOUNTER 2019-11-27 01:07 | Emergency (ER) | payer OTHER ==
[2019-11-27] MEDS ORDERED: LORazepam 2 MG/ML VIAL ONE (01:53)
[2019-11-27] MEDS ORDERED: NA CHLORIDE 0.9% 2,000 ML ONE (01:53)
[2019-11-27] MEDS ORDERED: MULTIVITAMINS 10 ML VIAL (INJ) IV ONE (01:53)
[2019-11-27] MEDS ORDERED: THIAMINE 200 MG/2 ML INJ ONE (01:53)
[2019-11-27] MEDS ORDERED: FOLIC ACID 5 MG/ML VIAL ONE (01:54)
[2019-11-27 02:04] LABS: Absolute Lymphocytes (CBC) 1.7 K/uL (0.7-4.9); Basophils % 0.4 % (0-1.3); Hematocrit 46.1 % (39.6-49.0); Lymphocytes % 20.8 % (15.3-44.8); MPV 7.6 fL (7.6-11.3); RBC Red Blood Cell Count 4.88 M/uL (4.33-5.43)
[2019-11-27 02:19] LABS: Protime INR 0.87
[2019-11-27 02:24] LABS: ALT/SGPT 170 U/L (12-78); AST/SGOT 130 U/L (15-37); Albumin 3.9 g/dL (3.4-5.0); Alkaline Phosphatase 97 U/L (45-117); BUN Blood Urea Nitrogen 6 mg/dL (7-18); Bicarbonate 29 mmol/L (21-32); Bilirubin Direct 0.1 mg/dL (0-0.2); Bilirubin Total 0.2 mg/dL (0.2-1.0); Glucose Level 97 mg/dL (74-106); Potassium 3.8 mmol/L (3.5-5.1); Protein, Total 7.9 g/dL (6.4-8.2); Sodium Level 141 mmol/L (136-145)
[2019-11-27 02:34] LABS: Barbiturates NEGATIVE (NEGATIVE); Benzodiazepines NEGATIVE (NEGATIVE); Cocaine NEGATIVE (NEGATIVE); METHAMPHETAM NEGATIVE (NEGATIVE); Methadone NEGATIVE (NEGATIVE); Opiates NEGATIVE (NEGATIVE); Phencyclidine NEGATIVE (NEGATIVE); THC Cannibis NEGATIVE (NEGATIVE)
--- NOTE | 2019-11-27 03:29 | ER ---
Nurse's Notes [facility] [place] Name: Philip Saldaña Age: 29 yrs Sex: Male : 1990 Arrival Date: 11/27/2019 Time: 01:08 Bed 8 Private MD: Diagnosis: Alcohol dependence;Alcohol dependence with withdrawal, uncomplicated;Alcohol abuse with intoxication Presentation: 11/27 01:11 Presenting complaint: Patient states: I have been drinking 6-7 flask sized bottles of jb4 whiskey a day for the last 3 days. I am here because I want to sober up so I can go to rehab tomorrow. I started drinking this morning around 7 am and my last drink was about 9 pm. 01:11 Transition of care: patient was not received from another setting of care. Onset of jb4 symptoms was November 23, 2019. Risk Assessment: Do you want to hurt yourself or someone else? Patient reports no desire to harm self or others. Initial Sepsis Screen: Does the patient meet any 2 criteria? HR > 90 bpm. Yes Does the patient have a suspected source of infection? No. Patient's initial sepsis screen is negative. Care prior to arrival: None. 01:11 Method Of Arrival: Ambulatory jb4 01:11 Acuity: KASSIDY 3 jb4 Historical: - Allergies: 01:11 Sulfa (Sulfonamide Antibiotics); jb4 - Home Meds: 01:11 Omeprazole Oral [Active]; jb4 - PMHx: 01:11 Alcoholism; GERD; Anxiety; HYPOGLYCEMIA; Depression; jb4 - PSHx: 01:11 nose; jb4 - Immunization history:: Adult Immunizations up to date. - Coronavirus screen:: The patient has NOT traveled to [place] in the past 14 days. Proceed with normal triage process as indicated. The patient has NOT had contact with known/suspected case of Coronavirus? Proceed with normal triage procedures. - Social history:: Smoking status: Patient reports the use of cigarette tobacco products, smokes one pack cigarettes per day. Patient uses alcohol, patient/guardian reports recent binge of alcohol consumption. Patient/guardian denies using street drugs. - Family history:: not pertinent. - Ebola Screening: : No symptoms or risks identified at this time. Screenin:11 Abuse screen: Denies threats or abuse. Nutritional screening: No deficits noted. jb4 Tuberculosis screening: No symptoms or risk factors identified. Fall Risk Gait- Impaired (20 pts.). Mental Status- Overestimates/Forgets Limitations (15 pts.). Total Harmon Fall Scale indicates Low Risk Score (25-44 pts). Fall prevention measures have been instituted. Side Rails Up X 2 Placed close to Nursing Station Frequent Obs/Assesments occuring As available Patient and Family Educated on Fall Prevention Program and strategies. Assessment: 01:11 General: Appears in no apparent distress. comfortable, Behavior is calm, cooperative, jb4 appropriate for age, Smells of alcohol, Pt reports drinking 6-7 flask sized bottles of whiskey per day for the past 3 days. Pt states "I started drinking yesterday \\T\\ 7 am and finished around 9 pm yesterday.". Pain: Denies pain. Neuro: Level of Consciousness is awake, alert, obeys commands, Oriented to person, place, time, situation, Moves all extremities. Full function Gait is unsteady, Speech is slurred, Facial symmetry appears normal, Pupils are PERRLA, dilated. Cardiovascular: Patient's skin is warm and dry. Respiratory: Airway is patent Respiratory effort is even, unlabored, Respiratory pattern is regular, symmetrical. GI: No signs and/or symptoms were reported involving the gastrointestinal system. : No signs and/or symptoms were reported regarding the genitourinary system. EENT: No signs and/or symptoms were reported regarding the EENT system. Derm: Skin is intact, Rash noted that is on generalized Pt reports rash is due to psoriasis. Musculoskeletal: Circulation, motion, and sensation intact. Range of motion: intact in all extremities. 02:30 Reassessment: Patient appears in no apparent distress at this time. Patient and/or jb4 family updated on plan of care and expected duration. Pain level reassessed. Patient is alert, oriented x 3, equal unlabored respirations, skin warm/dry/pink. Patient denies pain at this time. 03:45 Reassessment: Patient appears in no apparent distress at this time. Patient and/or jb4 family updated on plan of care and expected duration. Pain level reassessed. Patient is alert, oriented x 3, equal unlabored respirations, skin warm/dry/pink. D/c pending completion of IV fluids. Patient denies pain at this time. 04:35 Reassessment: Patient appears in no apparent distress at this time. Patient and/or jb4 family updated on plan of care and expected duration. Pain level reassessed. Pt is resting in bed with eyes closed, respirations even and unlabored. no s/s of distress noted. 05:45 Reassessment: Patient appears in no apparent distress at this time. Patient and/or jb4 family updated on plan of care and expected duration. Pain level reassessed. Patient is alert, oriented x 3, equal unlabored respirations, skin warm/dry/pink. Discharge papers given to Pt. Verbalized understanding of d/c and follow up instructions. When Pt stood up, heart rate increased from 101 to 125. Provider notified. 06:00 Reassessment: Orthostatic blood pressures performed, heart rate increased from 99 while jb4 sitting to 127 while standing, provider notified, see MAR for orders. 06:39 Reassessment: Patient appears in no apparent distress at this time. Patient and/or jb4 family updated on plan of care and expected duration. Pain level reassessed. Patient is alert, oriented x 3, equal unlabored respirations, skin warm/dry/pink. Pt's hr has decreased to 97. 06:46 Reassessment: Pt is alert and oriented x4, ambulated out Of ED with steady gait. Speech jb4 is clear and demonstrates good decision making. Pt discharged to [facility] to wait for his friend to pick him up. Vital Signs: 01:11 BP 130 / 94; Pulse 113; Resp 16; Temp 98.5(O); Pulse Ox 100% on R/A; Weight 72.57 kg jb4 (R); Height 6 ft. 0 in. (182.88 cm) (R); Pain 0/10; 02:30 BP 117 / 92; Pulse 102; Resp 22; Pulse Ox 100% ; jb4 03:30 BP 110 / 63; Pulse 102; Resp 16; Pulse Ox 96% on R/A; jb4 04:30 BP 99 / 58; Pulse 89; Resp 16; Pulse Ox 97% on R/A; jb4 05:56 BP 123 / 79 LA Supine; Pulse 105; Resp 18; Pulse Ox 99% on R/A; jb4 05:58 BP 122 / 89 LA Sitting; Pulse 99; Resp 13; Pulse Ox 100% on R/A; jb4 06:00 BP 117 / 88 LA Standing; Pulse 127; Resp 16; Pulse Ox 100% on R/A; jb4 06:30 BP 111 / 65; Pulse 93; Resp 16; Pulse Ox 97% on R/A; jb4 01:11 Body Mass Index 21.70 (72.57 kg, 182.88 cm) jb4 ED Course: 01:08 Patient arrived in ED. ag3 01:11 Bairon Moffett, RN is Primary Nurse. jb4 01:11 Arm band placed on right wrist. jb4 01:11 Patient has correct armband on for positive identification. Placed in gown. Bed in low jb4 position. Call light in reach. Side rails up X 1. power press operator on. Pulse ox on. NIBP on. 01:29 Triage completed. jb4 01:33 Fco García MD is Attending Physician. [facility] 06:42 No provider procedures requiring assistance completed. IV discontinued, intact, jb4 bleeding controlled, No redness/swelling at site. Pressure dressing applied. Administered Medications: 02:07 Drug: NS 0.9% 1000 ml Route: IV; Rate: 1 bolus; Site: right antecubital; jb4 03:00 Follow up: Response: No adverse reaction; IV Status: Completed infusion; IV Intake: jb4 1000ml 02:07 Drug: Thiamine 100 mg Route: IV; Rate: bolus; Site: right antecubital; jb4 02:10 Follow up: Response: No adverse reaction; IV Status: Completed infusion jb4 02:08 Drug: Banana Bag - (NS 0.9% 1000 ml, foLIC Acid 1 mg, Thiamine 100 mg, Multivitamin 1 jb4 amp) Route: IV; Rate: 250 ml/hr; Site: right antecubital; 05:46 Follow up: Response: No adverse reaction; IV Status: Order to discontinue infusion; IV jb4 Intake: 750ml 02:08 Drug: Ativan 1 mg Route: IVP; Site: right antecubital; jb4 02:30 Follow up: Response: No adverse reaction jb4 03:49 Drug: Magnesium Sulfate 1 grams Route: IVPB; Infused Over: 1 hrs; Site: right jb4 antecubital; 04:52 Follow up: Response: No adverse reaction; IV Status: Completed infusion jb4 05:47 Not Given (Physician Discretion): Ativan 1 mg IVP once jb4 06:03 Drug: NS 0.9% 1000 ml Route: IV; Rate: 1 bolus; Site: right antecubital; jb4 06:41 Follow up: Response: No adverse reaction; IV Status: Completed infusion; IV Intake: jb4 1000ml Intake: 03:00 IV: 1000ml; Total: 1000ml. jb4 05:46 IV: 750ml; Total: 1750ml. jb4 06:41 IV: 1000ml; Total: 2750ml. jb4 Outcome: 03:27 Discharge ordered by MD. carballo 06:42 Discharged to home ambulatory, with friend. jb4 06:42 Condition: stable 06:42 Discharge instructions given to patient, Instructed on discharge instructions, follow up and referral plans. medication usage, Demonstrated understanding of instructions, follow-up care, medications, Prescriptions given X 2. 06:49 Patient left the ED. jb4 Signatures: Fco García MD MD cha Bryson, James, RN RN jb4 Angie Guerra ag3 Corrections: (The following items were deleted from the chart) 06:42 06:30 BP 116 / 5; Pulse 93bpm; Resp 16bpm; Pulse Ox 97% RA; jb4 jb4
--- NOTE | 2019-11-27 03:29 | EDPHYS ---
Physician Documentation [facility] [place] [place] Name: Philip Saldaña Age: 29 yrs Sex: Male : 1990 Arrival Date: 11/27/2019 Time: 01:08 Bed 8 Private MD: TERESO Physician Fco García HPI: 11/27 01:44 This 29 yrs old Male presents to ER via Ambulatory with complaints of Alcohol haris Withdrawal. 01:44 etoh withdrawal. Onset: The symptoms/episode began/occurred 3 week(s) ago. Severity of haris symptoms: At their worst the symptoms were mild moderate in the emergency department the symptoms are unchanged. The patient has not experienced similar symptoms in the past. Historical: - Allergies: 01:11 Sulfa (Sulfonamide Antibiotics); jb4 - Home Meds: 01:11 Omeprazole Oral [Active]; jb4 - PMHx: 01:11 Alcoholism; GERD; Anxiety; HYPOGLYCEMIA; Depression; jb4 - PSHx: 01:11 nose; jb4 - Immunization history:: Adult Immunizations up to date. - Coronavirus screen:: The patient has NOT traveled to [place] in the past 14 days. Proceed with normal triage process as indicated. The patient has NOT had contact with known/suspected case of Coronavirus? Proceed with normal triage procedures. - Social history:: Smoking status: Patient reports the use of cigarette tobacco products, smokes one pack cigarettes per day. Patient uses alcohol, patient/guardian reports recent binge of alcohol consumption. Patient/guardian denies using street drugs. - Family history:: not pertinent. - Ebola Screening: : No symptoms or risks identified at this time. ROS: 01:44 Constitutional: Negative for fever, chills, and weight loss, Eyes: Negative for injury, haris pain, redness, and discharge, ENT: Negative for injury, pain, and discharge, Neck: Negative for injury, pain, and swelling, Respiratory: Negative for shortness of breath, cough, wheezing, and pleuritic chest pain, Abdomen/GI: Negative for abdominal pain, nausea, vomiting, diarrhea, and constipation, Back: Negative for injury and pain, : Negative for injury, bleeding, discharge, and swelling, MS/Extremity: Negative for injury and deformity, Skin: Negative for injury, rash, and discoloration, Neuro: Negative for headache, weakness, numbness, tingling, and seizure, Psych: Negative for depression, anxiety, suicide ideation, homicidal ideation, and hallucinations, Allergy/Immunology: Negative for hives, rash, and allergies, Endocrine: Negative for neck swelling, polydipsia, polyuria, polyphagia, and marked weight changes, Hematologic/Lymphatic: Negative for swollen nodes, abnormal bleeding, and unusual bruising. 01:44 Cardiovascular: Positive for palpitations. Exam: 01:44 Constitutional: This is a well developed, well nourished patient who is awake, alert, haris and in no acute distress. Head/Face: Normocephalic, atraumatic. Eyes: Pupils equal round and reactive to light, extra-ocular motions intact. Lids and lashes normal. Conjunctiva and sclera are non-icteric and not injected. Cornea within normal limits. Periorbital areas with no swelling, redness, or edema. ENT: Nares patent. No nasal discharge, no septal abnormalities noted. Tympanic membranes are normal and external auditory canals are clear. Oropharynx with no redness, swelling, or masses, exudates, or evidence of obstruction, uvula midline. Mucous membranes moist. Neck: Trachea midline, no thyromegaly or masses palpated, and no cervical lymphadenopathy. Supple, full range of motion without nuchal rigidity, or vertebral point tenderness. No Meningismus. Chest/axilla: Normal chest wall appearance and motion. Nontender with no deformity. No lesions are appreciated. Respiratory: Lungs have equal breath sounds bilaterally, clear to auscultation and percussion. No rales, rhonchi or wheezes noted. No increased work of breathing, no retractions or nasal flaring. Abdomen/GI: Soft, non-tender, with normal bowel sounds. No distension or tympany. No guarding or rebound. No evidence of tenderness throughout. Back: No spinal tenderness. No costovertebral tenderness. Full range of motion. Male : Normal genitalia with no discharge or lesions. Skin: Warm, dry with normal turgor. Normal color with no rashes, no lesions, and no evidence of cellulitis. MS/ Extremity: Pulses equal, no cyanosis. Neurovascular intact. Full, normal range of motion. Neuro: Awake and alert, GCS 15, oriented to person, place, time, and situation. Cranial nerves II-XII grossly intact. Motor strength 5/5 in all extremities. Sensory grossly intact. Cerebellar exam normal. Normal gait. Psych: Awake, alert, with orientation to person, place and time. Behavior, mood, and affect are within normal limits. 01:44 Cardiovascular: Rate: tachycardic, Rhythm: regular, Pulses: no pulse deficits are appreciated, Heart sounds: normal, normal S1and S2, no S3 or S4, no murmur, no rub, no gallop, Edema: is not appreciated, JVD: is not appreciated. Vital Signs: 01:11 BP 130 / 94; Pulse 113; Resp 16; Temp 98.5(O); Pulse Ox 100% on R/A; Weight 72.57 kg jb4 (R); Height 6 ft. 0 in. (182.88 cm) (R); Pain 0/10; 02:30 BP 117 / 92; Pulse 102; Resp 22; Pulse Ox 100% ; jb4 03:30 BP 110 / 63; Pulse 102; Resp 16; Pulse Ox 96% on R/A; jb4 04:30 BP 99 / 58; Pulse 89; Resp 16; Pulse Ox 97% on R/A; jb4 05:56 BP 123 / 79 LA Supine; Pulse 105; Resp 18; Pulse Ox 99% on R/A; jb4 05:58 BP 122 / 89 LA Sitting; Pulse 99; Resp 13; Pulse Ox 100% on R/A; jb4 06:00 BP 117 / 88 LA Standing; Pulse 127; Resp 16; Pulse Ox 100% on R/A; jb4 06:30 BP 111 / 65; Pulse 93; Resp 16; Pulse Ox 97% on R/A; jb4 01:11 Body Mass Index 21.70 (72.57 kg, 182.88 cm) 4 MDM: 01:33 Patient medically screened. [facility] 03:07 Data reviewed: vital signs, nurses notes, lab test result(s), EKG. [facility] 11/27 01:43 Order name: Acetaminophen; Complete Time: 03:03 [facility] 11/27 01:43 Order name: Basic Metabolic Panel; Complete Time: 03:03 [facility] 11/27 01:43 Order name: CBC with Diff; Complete Time: 03:03 [facility] 11/27 01:43 Order name: ETOH Level; Complete Time: 03:03 [facility] 11/27 01:43 Order name: Hepatic Function; Complete Time: 03:03 [facility] 11/27 01:43 Order name: PT-INR; Complete Time: 03:03 [facility] 11/27 01:43 Order name: Ptt, Activated; Complete Time: 03:03 [facility] 11/27 01:43 Order name: Salicylate; Complete Time: 03:03 [facility] 11/27 01:43 Order name: Urine Drug Screen; Complete Time: 03:03 [facility] 11/27 02:25 Order name: Urine Dipstick--Ancillary (enter results) cm6 11/27 01:43 Order name: EKG; Complete Time: 01:44 [facility] 11/27 01:43 Order name: EKG - Nurse/Tech; Complete Time: 02: [facility] 11/27 01:43 Order name: IV Saline Lock; Complete Time: : [facility] 11/27 01:43 Order name: Labs collected and sent; Complete Time: 02: [facility] 11/27 01:43 Order name: Urine Dipstick-Ancillary (obtain specimen); Complete Time: 02: [facility] Administered Medications: 02:07 Drug: NS 0.9% 1000 ml Route: IV; Rate: 1 bolus; Site: right antecubital; jb4 03:00 Follow up: Response: No adverse reaction; IV Status: Completed infusion; IV Intake: jb4 1000ml 02:07 Drug: Thiamine 100 mg Route: IV; Rate: bolus; Site: right antecubital; jb4 02:10 Follow up: Response: No adverse reaction; IV Status: Completed infusion jb4 02:08 Drug: Banana Bag - (NS 0.9% 1000 ml, foLIC Acid 1 mg, Thiamine 100 mg, Multivitamin 1 jb4 amp) Route: IV; Rate: 250 ml/hr; Site: right antecubital; 05:46 Follow up: Response: No adverse reaction; IV Status: Order to discontinue infusion; IV jb4 Intake: 750ml 02:08 Drug: Ativan 1 mg Route: IVP; Site: right antecubital; jb4 02:30 Follow up: Response: No adverse reaction jb4 03:49 Drug: Magnesium Sulfate 1 grams Route: IVPB; Infused Over: 1 hrs; Site: right 4 antecubital; 04:52 Follow up: Response: No adverse reaction; IV Status: Completed infusion jb4 05:47 Not Given (Physician Discretion): Ativan 1 mg IVP once jb4 06:03 Drug: NS 0.9% 1000 ml Route: IV; Rate: 1 bolus; Site: right antecubital; jb4 06:41 Follow up: Response: No adverse reaction; IV Status: Completed infusion; IV Intake: jb4 1000ml Disposition: 11/27/19 03:27 Discharged to Home. Impression: Alcohol dependence, Alcohol dependence with withdrawal, uncomplicated, Alcohol abuse with intoxication. - Condition is Stable. - Discharge Instructions: Alcohol Intoxication, Alcohol Withdrawal, Alcohol Use Disorder, Alcohol Intoxication, [id number], Alcohol Abuse and Nutrition, Alcohol Withdrawal, Aile-ef-Ougu. - Prescriptions for chlordiazepoxide HCl 25 mg Oral capsule - take 1 capsule by ORAL route 3 times per day; 30 capsule. Pepcid 20 mg Oral Tablet - take 1 tablet by ORAL route every 12 hours for 10 days; 20 tablet. - Medication Reconciliation Form, Thank You Letter, Antibiotic Education, Prescription Opioid Use form. - Work release form (11/27/19 07:02). bd - Follow up: Private Physician; When: 2 - 3 days; Reason: Recheck today's complaints, Continuance of care, Re-evaluation by your physician. - Problem is new. - Symptoms have improved. Signatures: Dispatcher [employer] EDFco Choe MD MD cha Bryson, James, RN RN Maria Guadalupe Sawant Corrections: (The following items were deleted from the chart) 06:49 03:27 11/27/2019 03:27 Discharged to Home. Impression: Alcohol dependence; Alcohol jb4 dependence with withdrawal, uncomplicated; Alcohol abuse with intoxication. Condition is Stable. Discharge Instructions: Alcohol Withdrawal, Alcohol Use Disorder, Alcohol Withdrawal, Hort-[id number]-[id number], Alcohol Intoxication, Alcohol Intoxication, Guud-nu-Xbto, Alcohol Abuse and Nutrition. Prescriptions for chlordiazepoxide HCl 25 mg Oral capsule - take 1 capsule by ORAL route 3 times per day; 30 capsule, Pepcid 20 mg Oral Tablet - take 1 tablet by ORAL route every 12 hours for 10 days; 20 tablet. and Forms are Medication Reconciliation Form, Thank You Letter, Antibiotic Education, Prescription Opioid Use. Follow up: Private Physician; When: 2 - 3 days; Reason: Recheck today's complaints, Continuance of care, Re-evaluation by your physician. Problem is new. Symptoms have improved. haris
[2019-11-27] MEDS ORDERED: MAGNESIUM SULFATE 1 gm IVPB 1 GM/100 ML BAG IV ONE (03:48)
[2019-11-27 03:54] LABS: Urine Blood NEGATIVE (NEG); Urine Glucose NEGATIVE (NEG); Urine Protein NEGATIVE (NEG); Urine Specific Gravity 1.015 (1.005-1.030)
[2019-11-27] MEDS ORDERED: NA CHLORIDE 0.9% 1,000 ML ONE (06:07)
--- NOTE | 2019-11-27 07:50 | EKG ---
Test Date: 2019-11-27 Test Time: 02:25:19 Senior Process Engineer: KIRSTEN MEASUREMENT RESULTS: Intervals: Rate: 101 CA: 126 QRSD: 90 QT: 318 QTc: 412 E[place]chs: P: 0 CA: 126 QRS: 82 T: 58 INTERPRETIVE STATEMENTS: Sinus tachycardia Early repolarization Otherwise normal ECG Compared to ECG 09/19/2018 08:10:35 Early repolarization now present Electronically Signed On 11-27-19 07:49:24 DOUGH RAISER by Tyree Ortiz
[2019-11-27 08:13] VITALS: O2SAT 100
[2019-11-27 08:14] VITALS: BP 117/88
== END 2019-11-27 06:49 | disposition home or self-care (01) ==
LOC: ER 01:07
DX: F10.239 Alcohol dependence with withdrawal, unspecified (principal); F10.129 Alcohol abuse with intoxication, unspecified; K21.9 Gastro-esophageal reflux disease without esophagitis; Z88.2 Allergy status to sulfonamides
CPT/HCPCS: 96365; 96361; 93005; 85025; 80048; 36415; 80320; 80329 ×2; 85610; 80076; 80307 ×8; 85730; 81003; 96375; 99284; 96366; J3411; J3475; J7030 ×2

== ENCOUNTER 2020-01-25 19:26 | Emergency (ER) | payer OTHER ==
[2020-01-25] MEDS ORDERED: DIAZEPAM 10 MG/2 ML INJ SYRINGE ONE (19:50)
[2020-01-25 20:11] LABS: Protime INR 0.88
[2020-01-25 20:12] LABS: Barbiturates NEGATIVE (NEGATIVE); Benzodiazepines NEGATIVE (NEGATIVE); Cocaine NEGATIVE (NEGATIVE); METHAMPHETAM NEGATIVE (NEGATIVE); Methadone NEGATIVE (NEGATIVE); Opiates NEGATIVE (NEGATIVE); Phencyclidine NEGATIVE (NEGATIVE); THC Cannibis NEGATIVE (NEGATIVE)
[2020-01-25 20:13] LABS: Absolute Lymphocytes (CBC) 2.6 K/uL (0.7-4.9); Basophils % 0.7 % (0-1.3); Hematocrit 48.4 % (39.6-49.0); Lymphocytes % 34.2 % (15.3-44.8); MPV 7.6 fL (7.6-11.3); RBC Red Blood Cell Count 5.08 M/uL (4.33-5.43)
[2020-01-25] MEDS ORDERED: THIAMINE 200 MG/2 ML INJ ONE (20:21)
[2020-01-25] MEDS ORDERED: MULTIVITAMINS 10 ML VIAL (INJ) IV ONE (20:21)
[2020-01-25] MEDS ORDERED: FOLIC ACID 5 MG/ML VIAL ONE (20:22)
[2020-01-25] MEDS ORDERED: NA CHLORIDE 0.9% 1,000 ML ONE (20:22)
[2020-01-25 20:25] LABS: ALT/SGPT 215 U/L (12-78); AST/SGOT 156 U/L (15-37); Albumin 4.2 g/dL (3.4-5.0); Alkaline Phosphatase 86 U/L (45-117); BUN Blood Urea Nitrogen 5 mg/dL (7-18); Bicarbonate 29 mmol/L (21-32); Bilirubin Direct 0.2 mg/dL (0-0.2); Bilirubin Total 0.6 mg/dL (0.2-1.0); Glucose Level 94 mg/dL (74-106); Potassium 3.9 mmol/L (3.5-5.1); Protein, Total 8.3 g/dL (6.4-8.2); Sodium Level 137 mmol/L (136-145)
[2020-01-25 20:49] LABS: Blood Morphology Comment NOT SEEN (NOT SEEN); Platelet Estimate ADEQ
--- NOTE | 2020-01-25 21:44 | EDPHYS ---
Physician Documentation [facility] Name: Philip Saldaña Age: 29 yrs Sex: Male : 1990 Arrival Date: 01/25/2020 Time: 19:26 Bed 24 Private MD: ED Physician Todd Patel HPI: 01/24 19:36 This 29 yrs old Male presents to ER via Ambulatory with complaints of jmm Detoxing. 19:36 This is a 29 year old male with a history of alcoholism, anxiety, GERD, depression that jmm presents to the ED with complaints of withdrawal symptoms. Patient states he has had etoh ingestion today. Patient is scheduled to visit psychiatry tomorrow for further evaluation. Denies abdominal pain, shortness of breath. . Historical: - Allergies: 19:38 Sulfa (Sulfonamide Antibiotics); ca1 - PMHx: 19:38 Alcoholism; Anxiety; GERD; Depression; HYPOGLYCEMIA; ca1 - PSHx: 19:38 None; ca1 - Immunization history:: Adult Immunizations up to date, Flu vaccine is up to date. - Social history:: Smoking status: Patient reports the use of cigarette tobacco products, smokes one-half pack cigarettes per day. ROS: 19:36 Constitutional: Negative for fever, chills, and weight loss, Cardiovascular: Negative jmm for chest pain, palpitations, and edema, Respiratory: Negative for shortness of breath, cough, wheezing, and pleuritic chest pain, Neuro: Negative for headache, weakness, numbness, tingling, and seizure. 19:36 All other systems are negative. Exam: 19:36 Constitutional: This is a well developed, well nourished patient who is awake, alert, jmm and in no acute distress. Head/Face: atraumatic. Eyes: EOMI, no conjunctival erythema appreciated ENT: Moist Mucus Membranes Neck: Trachea midline, Supple Chest/axilla: Normal chest wall appearance and motion. Cardiovascular: Regular rate and rhythm. No edema appreciated Respiratory: Normal respirations, no respiratory distress appreciated Abdomen/GI: Non distended, soft Back: Normal ROM Skin: General appearance color normal MS/ Extremity: Moves all extremities, no obvious deformities appreciated, no edema noted to the lower extremities Neuro: Awake and alert, normal gait Psych: Behavior is normal, Mood is normal, Patient is cooperative and pleasant Vital Signs: 19:34 BP 131 / 96; Pulse 110; Resp 18 S; Temp 98.6(O); Pulse Ox 100% on R/A; Weight 72.57 kg ca1 (R); Height 6 ft. 0 in. (182.88 cm) (R); 21:00 BP 119 / 89; Pulse 98; Resp 19; Pulse Ox 97% on R/A; jb4 21:35 BP 133 / 87; Pulse 108; Resp 15; Pulse Ox 97% on R/A; jb4 19:34 Body Mass Index 21.70 (72.57 kg, 182.88 cm) ca1 MDM: 19:36 Patient medically screened. [facility] 21:41 Differential Diagnosis ETOH intoxication, ETOH withdrawal. Data reviewed: vital signs, [facility] nurses notes, lab test result(s), EKG. Counseling: I had a detailed discussion with the patient and/or guardian regarding: the historical points, exam findings, and any diagnostic results supporting the discharge/admit diagnosis, lab results, the need for outpatient follow up, to return to the emergency department if symptoms worsen or persist or if there are any questions or concerns that arise at home. ED course: Patient is alert and non toxic in appearance in the ED. Patient appears stable in the ED. Will treat with librium. Patient is advised to follow up tomorrow for reevaluation. Patient is otherwise given strict return precautions. Patient understood and agrees with the plan of care. . 01/24 19:36 Order name: Acetaminophen [facility] 01/24 19:36 Order name: Basic Metabolic Panel; Complete Time: 20:38 [facility] 01/24 19:36 Order name: CBC with Diff; Complete Time: 20:52 [facility] 01/24 19:36 Order name: ETOH Level; Complete Time: 20:38 [facility] 01/24 19:36 Order name: Hepatic Function; Complete Time: 20:38 [facility] 01/24 19:36 Order name: PT-INR; Complete Time: 20:38 [facility] 01/24 19:36 Order name: Ptt, Activated; Complete Time: 20:38 [facility] 01/24 19:36 Order name: Salicylate; Complete Time: 20:38 [facility] 01/24 19:36 Order name: Urine Drug Screen; Complete Time: 20:38 [facility] 01/24 19:36 Order name: EKG; Complete Time: 19:37 [facility] 01/24 19:36 Order name: Acetaminophen Level; Complete Time: 20:38 [facility] 01/24 20:49 Order name: Manual Differential; Complete Time: 20:52 [facility] 01/24 19:36 Order name: EKG - Nurse/Tech; Complete Time: 19:50 [facility] 01/24 19:36 Order name: IV Saline Lock; Complete Time: 19:59 [facility] 01/24 19:36 Order name: Labs collected and sent; Complete Time: 19:59 [facility] 01/24 19:36 Order name: Urine Dipstick-Ancillary (obtain specimen); Complete Time: 19:59 [facility] Administered Medications: 19:55 Drug: Valium 5 mg Route: IVP; Site: right antecubital; jb4 20:28 Follow up: Response: No adverse reaction jb4 20:25 Drug: Banana Bag - (NS 0.9% 1000 ml, foLIC Acid 1 mg, Thiamine 100 mg, Multivitamin 1 jb4 amp) Route: IV; Rate: calculated rate; Site: right antecubital; 21:45 Follow up: Response: No adverse reaction; IV Status: Order to discontinue infusion; IV jb4 Intake: 296ml Disposition: 01/25 06:28 Co-signature as Attending Physician, Todd Patel MD I agree with the assessment and [facility] plan of care. Disposition: 01/25/20 21:43 Discharged to Home. Impression: Alcohol abuse with intoxication. - Condition is Stable. - Discharge Instructions: Alcohol Withdrawal, Alcohol Abuse and Nutrition. - Prescriptions for chlordiazepoxide HCl 25 mg Oral capsule - take 2 capsule by ORAL route 2-3 times daily up to 300 mg/day; 20 capsule. - Medication Reconciliation Form, Thank You Letter, Antibiotic Education, Prescription Opioid Use form. - Follow up: Private Physician; When: Tomorrow; Reason: Recheck today's complaints, Continuance of care, Re-evaluation by your physician. Signatures: Dispatcher [employer] [facility] Adalberto Dill PA PA jmm Bryson, James, RN RN jb4 Todd Patel MD MD [facility] Doris Guadarrama RN RN ca1 Corrections: (The following items were deleted from the chart) 01/24 22:02 21:43 01/25/2020 21:43 Discharged to Home. Impression: Alcohol abuse with intoxication. jb4 Condition is Stable. Forms are Medication Reconciliation Form, Thank You Letter, Antibiotic Education, Prescription Opioid Use. Follow up: Private Physician; When: Tomorrow; Reason: Recheck today's complaints, Continuance of care, Re-evaluation by your physician. sigifredo
--- NOTE | 2020-01-25 21:44 | ER ---
Nurse's Notes [facility] Name: Philip Saldaña Age: 29 yrs Sex: Male : 1990 Arrival Date: 01/25/2020 Time: 19:26 Bed 24 Private MD: Diagnosis: Alcohol abuse with intoxication Presentation: 01/24 19:34 Chief complaint: Patient states: "I am here to detox from alcohol. I had beers and ca1 liquor earlier today". Coronavirus screen: Proceed with normal triage. Patient denies a cough. Patient denies shortness of breath or difficulty breathing. Patient denies measured and/or subjective temperature greater than 100.4F prior to today's visit. Patient denies travel on a cruise ship or to a country the [facility] currently lists as an affected area. Patient denies contact with known and/or suspected case of COVID-19. Ebola Screen: Patient negative for fever greater than or equal to 101.5 degrees Fahrenheit, and additional compatible Ebola Virus Disease symptoms Patient denies exposure to infectious person. Patient denies travel to an Ebola-affected area in the 21 days before illness onset. No symptoms or risks identified at this time. Initial Sepsis Screen: Does the patient meet any 2 criteria? No. Patient's initial sepsis screen is negative. Does the patient have a suspected source of infection? No. Patient's initial sepsis screen is negative. Risk Assessment: Do you want to hurt yourself or someone else? Patient reports no desire to harm self or others. Onset of symptoms was January 25, 2020. 19:34 Method Of Arrival: Ambulatory ca1 19:34 Acuity: KASSIDY 3 ca1 Historical: - Allergies: 19:38 Sulfa (Sulfonamide Antibiotics); ca1 - PMHx: 19:38 Alcoholism; Anxiety; GERD; Depression; HYPOGLYCEMIA; ca1 - PSHx: 19:38 None; ca1 - Immunization history:: Adult Immunizations up to date, Flu vaccine is up to date. - Social history:: Smoking status: Patient reports the use of cigarette tobacco products, smokes one-half pack cigarettes per day. Screenin:50 Abuse screen: Denies threats or abuse. Nutritional screening: No deficits noted. jb4 Tuberculosis screening: No symptoms or risk factors identified. Fall Risk IV access (20 points). Mental Status- Overestimates/Forgets Limitations (15 pts.). Total Harmon Fall Scale indicates Low Risk Score (25-44 pts). Fall prevention measures have been instituted. Side Rails Up X 2 Placed close to Nursing Station Frequent Obs/Assesments occuring As available Patient and Family Educated on Fall Prevention Program and strategies. Assessment: 19:50 General: Appears in no apparent distress. comfortable, Behavior is calm, cooperative, jb4 appropriate for age, Smells of alcohol, PT reports binge drinking for the past 3 days with 4 bottles of vodka per day.. Pain: Denies pain. Neuro: Level of Consciousness is awake, alert, obeys commands, Oriented to person, place, time, situation, Compliance Auditor are equal bilaterally Moves all extremities. Full function Gait is steady, Speech is normal, Facial symmetry appears normal, Pupils are PERRLA, dilated. Cardiovascular: Patient's skin is warm and dry. Rhythm is sinus rhythm. Respiratory: Airway is patent Respiratory effort is even, unlabored, Respiratory pattern is regular, symmetrical. GI: No signs and/or symptoms were reported involving the gastrointestinal system. : No signs and/or symptoms were reported regarding the genitourinary system. EENT: No signs and/or symptoms were reported regarding the EENT system. Derm: Skin is intact, Skin is pink, warm \\T\\ dry. Musculoskeletal: Circulation, motion, and sensation intact. Range of motion: intact in all extremities. 21:00 Reassessment: Patient appears in no apparent distress at this time. Patient and/or jb4 family updated on plan of care and expected duration. Pain level reassessed. Patient is alert, oriented x 3, equal unlabored respirations, skin warm/dry/pink. Patient denies pain at this time. 21:42 Reassessment: Patient appears in no apparent distress at this time. Patient and/or jb4 family updated on plan of care and expected duration. Pain level reassessed. Patient is alert, oriented x 3, equal unlabored respirations, skin warm/dry/pink. Pt reports wanting to go home, provider notified, orders given to D/c IV fluids and IV. 21:58 Reassessment: PT verbalized understanding of d/c and follow up instructions. Denies jb4 questions or concerns. Speech is clear and pt is A\\T\\O x4. Ambulated to the lobby to wait for his ride with steady gait. Vital Signs: 19:34 BP 131 / 96; Pulse 110; Resp 18 S; Temp 98.6(O); Pulse Ox 100% on R/A; Weight 72.57 kg ca1 (R); Height 6 ft. 0 in. (182.88 cm) (R); 21:00 BP 119 / 89; Pulse 98; Resp 19; Pulse Ox 97% on R/A; jb4 21:35 BP 133 / 87; Pulse 108; Resp 15; Pulse Ox 97% on R/A; jb4 19:34 Body Mass Index 21.70 (72.57 kg, 182.88 cm) ca1 ED Course: 19:26 Patient arrived in ED. cl3 19:29 Adalberto Dill PA is PHCP. m 19:36 Bairon Moffett, CRIS is Primary Nurse. jb4 19:36 Triage completed. ca1 19:38 Arm band placed on right wrist. ca1 19:50 Patient has correct armband on for positive identification. Placed in gown. Bed in low jb4 position. Call light in reach. Side rails up X 1. environmental monitoring technician on. Pulse ox on. NIBP on. 19:50 Initial lab(s) drawn, by [facility], sent to lab. Urine collected: EKG done, by ED staff, jb4 reviewed by Adalberto CARDENAS. Inserted saline lock: 18 gauge in right antecubital area, using aseptic technique. Blood collected. 20:01 Acetaminophen Sent. ds4 20:01 Acetaminophen Level Sent. ds4 20:02 Hepatic Function Sent. ds4 20:02 PT-INR Sent. ds4 20:02 Basic Metabolic Panel Sent. ds4 20:02 CBC with Diff Sent. ds4 20:02 ETOH Level Sent. ds4 20:02 Ptt, Activated Sent. ds4 20:02 Salicylate Sent. ds4 20:02 Urine Drug Screen Sent. ds4 20:09 Basic Metabolic Panel Sent. jb4 20:09 CBC with Diff Sent. jb4 20:09 ETOH Level Sent. jb4 20:09 Hepatic Function Sent. jb4 20:09 Salicylate Sent. jb4 20:09 PT-INR Sent. jb4 20:10 Ptt, Activated Sent. jb4 21:43 No provider procedures requiring assistance completed. IV discontinued, intact, jb4 bleeding controlled, No redness/swelling at site. Pressure dressing applied. 21:44 Todd Patel MD is Attending Physician. shay Administered Medications: 19:55 Drug: Valium 5 mg Route: IVP; Site: right antecubital; jb4 20:28 Follow up: Response: No adverse reaction jb4 20:25 Drug: Banana Bag - (NS 0.9% 1000 ml, foLIC Acid 1 mg, Thiamine 100 mg, Multivitamin 1 jb4 amp) Route: IV; Rate: calculated rate; Site: right antecubital; 21:45 Follow up: Response: No adverse reaction; IV Status: Order to discontinue infusion; IV jb4 Intake: 296ml Intake: 21:45 IV: 296ml; Total: 296ml. jb4 Outcome: 21:43 Discharge ordered by . sigifredo 21:58 Discharged to home ambulatory, with friend. jb4 21:58 Condition: stable 21:58 Discharge instructions given to patient, Instructed on discharge instructions, follow up and referral plans. medication usage, Demonstrated understanding of instructions, follow-up care, medications, Prescriptions given X 1. 22:02 Patient left the ED. jb4 Signatures: Adalberto Dill PA PA jmm Swanson, Donovan ds4 Bairon Moffett, RN RN jb4 Doris Guadarrama RN RN ca1 [place] cl3
[2020-01-25 22:09] VITALS: TEMP 98.6
[2020-01-25 22:10] VITALS: O2SAT 97
[2020-01-25 22:11] VITALS: BP 133/87
--- NOTE | 2020-01-26 07:39 | EKG ---
Test Date: 2020-01-25 Test Time: 19:45:43 Contract Assistant: BRENNON MEASUREMENT RESULTS: Intervals: Rate: 99 MI: 124 QRSD: 96 QT: 342 QTc: 438 [place]: P: 28 MI: 124 QRS: 88 T: 57 INTERPRETIVE STATEMENTS: Normal sinus rhythm Early repolarization Normal ECG Compared to ECG 11/27/2019 02:25:19 Sinus tachycardia no longer present Electronically Signed On 01-26-20 07:38:47 CDT by Peter Banegas
== END 2020-01-25 22:02 | disposition home or self-care (01) ==
LOC: ER 19:26
DX: F10.229 Alcohol dependence with intoxication, unspecified (principal); F17.210 Nicotine dependence, cigarettes, uncomplicated; Z88.2 Allergy status to sulfonamides
CPT/HCPCS: 96365; 93005; 85025; 80048; 36415; 80320; 80329 ×2; 85610; 80076; 80307 ×8; 85730; 96375; 99284; J3411; J3360; J7030

== ENCOUNTER 2020-09-03 11:38 | Emergency (ER) | payer OTHER, SELFPAY ==
--- NOTE | 2020-09-03 12:33 | EDPHYS ---
Physician Documentation [facility] Name: Philip Saldaña Age: 30 yrs Sex: Male : 1990 Arrival Date: 09/03/2020 Time: 11:40 Bed 20 Private MD: ED Physician Markel Tanner HPI: 09/03 12:31 This 30 yrs old Male presents to ER via Ambulatory with complaints of ma2 Detoxing. 12:31 heavy alcohol drinking last drink 2 hrs ago, has nausea and vomiting . ma2 12:31 Onset: The symptoms/episode began/occurred gradually, 2 week(s) ago. Severity of ma2 symptoms: At their worst the symptoms were mild in the emergency department the symptoms are unchanged. The patient has not experienced similar symptoms in the past. Historical: - Allergies: 12:00 Sulfa (Sulfonamide Antibiotics); jd3 - Home Meds: 12:00 Omeprazole Oral [Active]; jd3 - PMHx: 12:00 Alcoholism; HYPOGLYCEMIA; Depression; GERD; Anxiety; jd3 - PSHx: 12:00 nasal sx; jd3 - Immunization history:: Adult Immunizations up to date. - Social history:: Smoking status: Patient reports the use of cigarette tobacco products, smokes one pack cigarettes per day. - Family history:: not pertinent. ROS: 12:31 Constitutional: Negative for fever, chills, and weight loss. ma2 12:31 All other systems are negative. Exam: 12:31 Constitutional: This is a well developed, well nourished patient who is awake, alert, ma2 and in no acute distress. Neck: Trachea midline, no thyromegaly or masses palpated, and no cervical lymphadenopathy. Supple, full range of motion without nuchal rigidity, or vertebral point tenderness. No Meningismus. Chest/axilla: Normal chest wall appearance and motion. Nontender with no deformity. No lesions are appreciated. Cardiovascular: Regular rate and rhythm with a normal S1 and S2. No gallops, murmurs, or rubs. Normal PMI, no JVD. No pulse deficits. Respiratory: Lungs have equal breath sounds bilaterally, clear to auscultation and percussion. No rales, rhonchi or wheezes noted. No increased work of breathing, no retractions or nasal flaring. Abdomen/GI: Soft, non-tender, with normal bowel sounds. No distension or tympany. No guarding or rebound. No evidence of tenderness throughout. MS/ Extremity: Pulses equal, no cyanosis. Neurovascular intact. Full, normal range of motion. Neuro: Awake and alert, GCS 15, oriented to person, place, time, and situation. Cranial nerves II-XII grossly intact. Motor strength 5/5 in all extremities. Sensory grossly intact. Cerebellar exam normal. Normal gait. Psych: Awake, alert, with orientation to person, place and time. Behavior, mood, and affect are within normal limits. Vital Signs: 12:01 BP 128 / 86; Pulse 95; Resp 17 S; Temp 97.9(TE); Pulse Ox 99% on R/A; Weight 72.57 kg jd3 (R); Height 5 ft. 11 in. (180.34 cm) (R); Pain 7/10; 13:00 BP 121 / 79; Pulse 93; Resp 18; Temp 98; Pulse Ox 99% ; bp 12:01 Body Mass Index 22.32 (72.57 kg, 180.34 cm) jd3 MDM: 12:04 Patient medically screened. ma2 12:31 Differential Diagnosis alcohol intoxication, mild alcohol withdrawal . Data reviewed: ny2 vital signs, nurses notes. Counseling: I had a detailed discussion with the patient and/or guardian regarding: the historical points, exam findings, and any diagnostic results supporting the discharge/admit diagnosis, the presence of at least one elevated blood pressure reading (>120/80) during this emergency department visit, the need for outpatient follow up. Response to treatment: the patient's symptoms have markedly improved after treatment. Administered Medications: No medications were administered Disposition: 09/03/20 12:33 Discharged to Home. Impression: Alcohol dependence with withdrawal, uncomplicated. - Condition is Stable. - Discharge Instructions: Finding Treatment for Addiction, Alcohol Withdrawal, What You Need to Know About Drinking and Driving, Teen, What You Need to Know About Alcohol Abuse and Dependence, Youth. - Prescriptions for Valium 5 mg Oral Tablet - take 1 tablet by ORAL route every 8 hours As needed; 20 tablet. Zofran 4 mg Oral Tablet - take 1 tablet by ORAL route every 12 hours As needed; 20 tablet. - Medication Reconciliation Form, Thank You Letter, Antibiotic Education, Prescription Opioid Use form. - Follow up: Private Physician; When: Tomorrow; Reason: If symptoms return, Continuance of care. Signatures: Ganesh Garcia RN RN jd3 Pablo Ferraro RN RN bp Markel Tanner MD MD ma2 Corrections: (The following items were deleted from the chart) 13:04 12:33 09/03/2020 12:33 Discharged to Home. Impression: Alcohol dependence with bp withdrawal, uncomplicated. Condition is Stable. Forms are Medication Reconciliation Form, Thank You Letter, Antibiotic Education, Prescription Opioid Use. Follow up: Private Physician; When: Tomorrow; Reason: If symptoms return, Continuance of care. ma2
--- NOTE | 2020-09-03 12:33 | ER ---
Nurse's Notes [facility] Name: Philip Saldaña Age: 30 yrs Sex: Male : 1990 Arrival Date: 09/03/2020 Time: 11:40 Bed 20 Private MD: Diagnosis: Alcohol dependence with withdrawal, uncomplicated Presentation: 09/03 11:58 Chief complaint: Patient states: "I am detoxing off of alcohol after a 5 day ludwig.". jd3 Coronavirus screen: At this time, the client does not indicate any symptoms associated with coronavirus-19. Ebola Screen: Patient negative for fever greater than or equal to 101.5 degrees Fahrenheit, and additional compatible Ebola Virus Disease symptoms. Initial Sepsis Screen: Does the patient meet any 2 criteria? No. Patient's initial sepsis screen is negative. Does the patient have a suspected source of infection? No. Patient's initial sepsis screen is negative. Risk Assessment: Do you want to hurt yourself or someone else? Patient reports no desire to harm self or others. Onset of symptoms was September 03, 2020. 11:58 Method Of Arrival: Ambulatory [facility] 11:58 Acuity: KASSIDY 3 jd3 Triage Assessment: 12:00 General: Appears distressed, Behavior is cooperative, appropriate for age, anxious. bp Pain: Denies pain. EENT: No deficits noted. Neuro: Level of Consciousness is awake, alert, obeys commands, Oriented to person, place, time, situation, Appropriate for age Gait is steady, Speech is normal. Cardiovascular: Rhythm is sinus rhythm. Respiratory: No deficits noted. GI: No signs and/or symptoms were reported involving the gastrointestinal system. : No signs and/or symptoms were reported regarding the genitourinary system. Derm: No deficits noted. Musculoskeletal: No deficits noted. Historical: - Allergies: 12:00 Sulfa (Sulfonamide Antibiotics); jd3 - Home Meds: 12:00 Omeprazole Oral [Active]; jd3 - PMHx: 12:00 Alcoholism; HYPOGLYCEMIA; Depression; GERD; Anxiety; jd3 - PSHx: 12:00 nasal sx; jd3 - Immunization history:: Adult Immunizations up to date. - Social history:: Smoking status: Patient reports the use of cigarette tobacco products, smokes one pack cigarettes per day. - Family history:: not pertinent. Screenin:00 Abuse screen: Denies threats or abuse. Denies injuries from another. Nutritional bp screening: No deficits noted. Tuberculosis screening: No symptoms or risk factors identified. Fall Risk None identified. Assessment: 12:00 General: SEE TRIAGE NOTE. bp 13:00 Reassessment: PT D/C HOME AMBULATORY, AOx4, AMBULATORY WITH STEADY GAIT, DX WITH ETOH bp ABUSE. Vital Signs: 12:01 BP 128 / 86; Pulse 95; Resp 17 S; Temp 97.9(TE); Pulse Ox 99% on R/A; Weight 72.57 kg jd3 (R); Height 5 ft. 11 in. (180.34 cm) (R); Pain 7/10; 13:00 BP 121 / 79; Pulse 93; Resp 18; Temp 98; Pulse Ox 99% ; bp 12:01 Body Mass Index 22.32 (72.57 kg, 180.34 cm) jd3 ED Course: 11:40 Patient arrived in ED. ds1 11:58 Triage completed. jd3 12:00 Patient has correct armband on for positive identification. Bed in low position. Call bp light in reach. Side rails up X2. 12:01 Arm band placed on. jd3 12:04 Markel Tanner MD is Attending Physician. ma2 12:32 Pablo Ferraro, RN is Primary Nurse. bp 12:59 No provider procedures requiring assistance completed. Patient did not have IV access bp during this emergency room visit. Administered Medications: No medications were administered Outcome: 12:33 Discharge ordered by . ma2 13:02 Discharged to home ambulatory. bp 13:02 Condition: stable 13:02 Discharge instructions given to patient, Instructed on discharge instructions, follow up and referral plans. medication usage, Demonstrated understanding of instructions, follow-up care, medications, Prescriptions given X 2. 13:04 Patient left the ED. bp Signatures: Angy Da Silva ds1 Ganesh Garcia RN RN jPablo Roblero, Markel Peña RN, MD MD ma2
[2020-09-03 14:18] VITALS: O2SAT 99
[2020-09-03 14:22] VITALS: BP 121/79; TEMP 98
== END 2020-09-03 13:04 | disposition home or self-care (01) ==
LOC: ER 11:38
DX: F10.239 Alcohol dependence with withdrawal, unspecified (principal); F41.8 Other specified anxiety disorders; F17.210 Nicotine dependence, cigarettes, uncomplicated; Z88.2 Allergy status to sulfonamides
CPT/HCPCS: 99284

== ENCOUNTER 2020-09-17 01:43 | Emergency (ER) | payer SELFPAY ==
[2020-09-17 02:45] LABS: Urine Blood TRACE (NEG); Urine Glucose NEGATIVE (NEG); Urine Protein NEGATIVE (NEG); Urine Specific Gravity 1.015 (1.005-1.030); Urine pH 7.5 (5.0-7.0)
[2020-09-17] MEDS ORDERED: MAGNES/ALUMIN/SIMET 30ML UCUP ONE (02:47)
[2020-09-17] MEDS ORDERED: ONDANSETRON 4 MG/2 ML VIAL ONE (02:48)
[2020-09-17] MEDS ORDERED: THIAMINE 200 MG/2 ML INJ ONE (02:48)
[2020-09-17] MEDS ORDERED: NA CHLORIDE 0.9% 2,000 ML ONE (02:48)
[2020-09-17] MEDS ORDERED: LIDOCAINE VISCOUS 2% SOLN 15 ML UDC ONE (02:48)
[2020-09-17] MEDS ORDERED: MULTIVITAMINS 10 ML VIAL (INJ) IV ONE (02:49)
[2020-09-17] MEDS ORDERED: FOLIC ACID 5 MG/ML VIAL ONE (02:51)
[2020-09-17 03:23] LABS: Absolute Lymphocytes (CBC) 2.1 K/uL (0.7-4.9); Basophils % 0.4 % (0-1.3); Lymphocytes % 25.9 % (15.3-44.8); MPV 8.3 fL (7.6-11.3); RBC Red Blood Cell Count 4.45 M/uL (4.33-5.43)
[2020-09-17 03:32] LABS: ALT/SGPT 69 U/L (12-78); AST/SGOT 87 U/L (15-37); Albumin 3.8 g/dL (3.4-5.0); Alkaline Phosphatase 89 U/L (45-117); BUN Blood Urea Nitrogen 5 mg/dL (7-18); Bicarbonate 28 mmol/L (21-32); Bilirubin Direct 0.3 mg/dL (0-0.2); Bilirubin Total 0.7 mg/dL (0.2-1.0); Glucose Level 89 mg/dL (74-106); Lipase 308 U/L (73-393); Potassium 3.6 mmol/L (3.5-5.1); Protein, Total 7.6 g/dL (6.4-8.2); Sodium Level 139 mmol/L (136-145)
--- NOTE | 2020-09-17 04:41 | ER ---
Nurse's Notes [facility] Name: Philip Saldaña Age: 30 yrs Sex: Male : 1990 Arrival Date: 09/17/2020 Time: 02:01 Bed Treatment Private MD: Diagnosis: Alcohol dependence with intoxication;Gastritis, unspecified Presentation: 09/17 02:14 Chief complaint: EMS states: drinking for 4 days and is now reports anxiety. dm5 Coronavirus screen: Client denies travel out of the [place] in the last 14 days. At this time, the client does not indicate any symptoms associated with coronavirus-19. Ebola Screen: Patient negative for fever greater than or equal to 101.5 degrees Fahrenheit, and additional compatible Ebola Virus Disease symptoms Patient denies exposure to infectious person. Patient denies travel to an Ebola-affected area in the 21 days before illness onset. No symptoms or risks identified at this time. Initial Sepsis Screen: Does the patient meet any 2 criteria? No. Patient's initial sepsis screen is negative. Does the patient have a suspected source of infection? No. Patient's initial sepsis screen is negative. Onset of symptoms was September 17, 2020. 02:14 Method Of Arrival: EMS: [facility] dm5 02:14 Acuity: KASSIDY 3 dm5 03:39 Risk Assessment: Do you want to hurt yourself or someone else? Patient reports no dm5 desire to harm self or others. Historical: - Allergies: 03:39 Sulfa (Sulfonamide Antibiotics); dm5 - Home Meds: 03:39 Omeprazole Oral [Active]; dm5 - PMHx: 03:39 Alcoholism; Anxiety; Depression; GERD; HYPOGLYCEMIA; dm5 - PSHx: 03:39 None; dm5 - Immunization history:: Adult Immunizations not up to date. - Social history:: Smoking status: Patient reports the use of cigarette tobacco products, denies chronic smoking, but will smoke occasionally. - Family history:: not pertinent. - Hospitalizations: : No recent hospitalization is reported. Vital Signs: 03:00 BP 123 / 73; Pulse 106; Resp 20; Temp 97.3; Pulse Ox 100% on R/A; Pain 0/10; dm5 ED Course: 02:01 Patient arrived in ED. mw2 02:07 Akhil Harris MD is Attending Physician. rn 02:17 Triage completed. dm5 02:17 Maintain EMS IV. Dressing intact. Site clean \T\ dry. Gauge \T\ site: 20 G R AC. dm 5 02:23 Anne Carmen, RN is Primary Nurse. dm5 03:30 IV discontinued, intact, bleeding controlled, No redness/swelling at site. Pressure dm5 dressing applied. 03:34 Inserted saline lock: 22 gauge in left antecubital area, using aseptic technique. dm5 04:18 Urine Dipstick--Ancillary (enter results) Sent. dm5 04:18 LFT's Sent. dm5 04:18 Lipase Sent. dm5 04:18 Basic Metabolic Panel Sent. dm5 04:18 CBC with Diff Sent. dm5 Administered Medications: 03:00 Drug: NS 0.9% 1000 ml Route: IV; Rate: 1000 ml; Site: right antecubital; dm5 03:35 Follow up: moved to new IV site in Left AC dm5 04:33 Follow up: IV Status: Completed infusion; IV Intake: 1000ml dm5 03:03 Drug: Zofran (Ondansetron) 4 mg Route: IVP; Site: right antecubital; dm5 03:35 Follow up: Response: No adverse reaction; Nausea is decreased dm5 03:50 Follow up: Response: No adverse reaction; Nausea is decreased dm5 03:05 Drug: Banana Bag - (NS 0.9% 1000 ml, foLIC Acid 1 mg, Thiamine 100 mg, Multivitamin 1 dm5 amp) Route: IV; Rate: calculated rate; Site: right antecubital; 03:35 Follow up: moved to new IV site Left AC dm5 05:09 Follow up: IV Status: Order to discontinue infusion; IV Intake: 530ml dm5 03:10 Drug: GI Cocktail without - (Maalox Suspension 30 ml, Lidocaine Liquid 2 % 15 dm5 ml) Route: PO; 03:50 Follow up: Response: No adverse reaction dm5 05:15 Drug: Phenergan 12.5 mg Route: IVP; Site: left antecubital; dm5 06:00 Follow up: Response: No adverse reaction; Nausea is decreased dm5 Intake: 04:33 IV: 1000ml; Total: 1000ml. dm5 05:09 IV: 530ml; Total: 1530ml. dm5 Outcome: 04:40 Discharge ordered by . amy 06:20 Patient left the ED. dm5 Signatures: Anne Carmen RN RN dm5 Akhil Harris MD MD rn [place], MyKena 2
--- NOTE | 2020-09-17 04:41 | EDPHYS ---
Physician Documentation [facility] Name: Philip Saldaña Age: 30 yrs Sex: Male : 1990 Arrival Date: 09/17/2020 Time: 02:01 Bed Treatment Private MD: ED Physician Akhil Harris HPI: 09/17 02:38 This 30 yrs old Male presents to ER via EMS with complaints of a "ludwig". rn 02:38 Reports on "a 4 day ludwig", moderate to heavy drinking, last drink within the hour, rn reports this happens often, but not a daily drinker or an alcoholic. Called 911 because not eating much over last 4 days, nauseated, and upper abd hurts. . Onset: The symptoms/episode began/occurred today. Severity of symptoms: At their worst the symptoms were mild in the emergency department the symptoms are unchanged. The patient has experienced similar episodes in the past. The patient has not recently seen a physician. Historical: - Allergies: 03:39 Sulfa (Sulfonamide Antibiotics); dm5 - Home Meds: 03:39 Omeprazole Oral [Active]; dm5 - PMHx: 03:39 Alcoholism; Anxiety; Depression; GERD; HYPOGLYCEMIA; dm5 - PSHx: 03:39 None; dm5 - Immunization history:: Adult Immunizations not up to date. - Social history:: Smoking status: Patient reports the use of cigarette tobacco products, denies chronic smoking, but will smoke occasionally. - Family history:: not pertinent. - Hospitalizations: : No recent hospitalization is reported. ROS: 02:38 Constitutional: Negative for fever, chills, and weight loss, Eyes: Negative for injury, rn pain, redness, and discharge, Neck: Negative for injury, pain, and swelling, Cardiovascular: Negative for chest pain, palpitations, and edema, Respiratory: Negative for shortness of breath, cough, wheezing, and pleuritic chest pain, Abdomen/GI: Negative for diarrhea, and constipation, Back: Negative for injury and pain, MS/Extremity: Negative for injury and deformity, Skin: Negative for injury, rash, and discoloration, Neuro: Negative for headache, weakness, numbness, tingling, and seizure. Exam: 02:38 Constitutional: Thin male, able to ambulate, no acute distress Head/Face: rn Normocephalic, atraumatic. ENT: dry MM Cardiovascular: Tachycardic, regular. No pulse deficits. Respiratory: No increased work of breathing, no retractions or nasal flaring. Abdomen/GI: soft, mild epigastric tenderness, no rebound Skin: Warm, dry MS/ Extremity: Pulses equal, no cyanosis. Neurovascular intact. Full, normal range of motion. Equal circumference. Neuro: Awake and alert, GCS 15, oriented to person, place, time, and situation. Cranial nerves II-XII grossly intact. Motor strength 5/5 in all extremities. Sensory grossly intact. Cerebellar exam normal. Normal gait. 04:01 ECG was reviewed by the Attending Physician. rn Vital Signs: 03:00 BP 123 / 73; Pulse 106; Resp 20; Temp 97.3; Pulse Ox 100% on R/A; Pain 0/10; dm5 MDM: 02:07 Patient medically screened. rn 04:39 Differential Diagnosis ETOH intoxication, dehydration, gastritis. Data reviewed: vital rn signs, nurses notes, lab test result(s), and as a result, I will discharge patient. Counseling: I had a detailed discussion with the patient and/or guardian regarding: the historical points, exam findings, and any diagnostic results supporting the discharge/admit diagnosis, lab results, the need for outpatient follow up, to return to the emergency department if symptoms worsen or persist or if there are any questions or concerns that arise at home. Counseling: I had a detailed discussion with the patient and/or guardian regarding: ETOH cessation. Special discussion: I discussed with the patient/guardian in detail that at this point there is no indication for admission to the hospital. It is understood, however, that if the symptoms persist or worsen the patient needs to return immediately for re-evaluation. 09/17 02:14 Order name: CBC with Diff rn 09/17 02:14 Order name: Basic Metabolic Panel rn 09/17 02:14 Order name: LFT's rn 09/17 02:14 Order name: Lipase rn 09/17 02:16 Order name: CBC with Automated Diff; Complete Time: 03:42 EDMS 09/17 02:23 Order name: Urine Dipstick--Ancillary (enter results) mw2 09/17 02:45 Order name: Urine Dipstick-Ancillary; Complete Time: 03:42 EDMS 12/10 03:32 Order name: Basic Metabolic Panel; Complete Time: 03:42 EDMS 09/17 03:32 Order name: Liver (Hepatic) Function; Complete Time: 03:42 EDMS 09/17 03:32 Order name: Lipase; Complete Time: 03:42 EDMS 10 02:14 Order name: IV Start; Complete Time: 03:43 rn 09/17 02:14 Order name: EKG; Complete Time: 02:16 rn 09/17 02:14 Order name: EKG - Nurse/Tech; Complete Time: 04:18 rn EC:01 Rate is 101 beats/min. Rhythm is regular. QRS [place] is Normal. [place] interval is normal. rn QRS interval is normal. QT interval is normal. No Q waves. T waves are Normal. No ST changes noted. Clinical impression: Sinus tachycardia. Interpreted by me. Reviewed by me. Administered Medications: 03:00 Drug: NS 0.9% 1000 ml Route: IV; Rate: 1000 ml; Site: right antecubital; dm5 03:35 Follow up: moved to new IV site in Left AC dm5 04:33 Follow up: IV Status: Completed infusion; IV Intake: 1000ml dm5 03:03 Drug: Zofran (Ondansetron) 4 mg Route: IVP; Site: right antecubital; dm5 03:35 Follow up: Response: No adverse reaction; Nausea is decreased dm5 03:50 Follow up: Response: No adverse reaction; Nausea is decreased dm5 03:05 Drug: Banana Bag - (NS 0.9% 1000 ml, foLIC Acid 1 mg, Thiamine 100 mg, Multivitamin 1 dm5 amp) Route: IV; Rate: calculated rate; Site: right antecubital; 03:35 Follow up: moved to new IV site Left AC dm5 05:09 Follow up: IV Status: Order to discontinue infusion; IV Intake: 530ml dm5 03:10 Drug: GI Cocktail without - (Maalox Suspension 30 ml, Lidocaine Liquid 2 % 15 dm5 ml) Route: PO; 03:50 Follow up: Response: No adverse reaction dm5 05:15 Drug: Phenergan 12.5 mg Route: IVP; Site: left antecubital; dm5 06:00 Follow up: Response: No adverse reaction; Nausea is decreased dm5 Disposition: 09/17/20 04:40 Discharged to Home. Impression: Alcohol dependence with intoxication, Gastritis, unspecified. - Condition is Stable. - Discharge Instructions: Gastritis, Adult, Alcohol Abuse and Nutrition. - Prescriptions for Zofran ODT 4 mg Oral tablet,disintegrating - place 1 tablet by TRANSLINGUAL route every 8 hours As needed; 15 tablet. Protonix 40 mg Oral Tablet - take 1 tablet by ORAL route once daily; 30 tablet. - Medication Reconciliation Form, Thank You Letter, Antibiotic Education, Prescription Opioid Use form. - Follow up: Private Physician; When: As needed; Reason: Recheck today's complaints, Re-evaluation by your physician. - Problem is new. - Symptoms have improved. Signatures: Dispatcher [employer] EDMS Anne Carmen RN RN dm5 Akhil Harris MD MD learning and development officer: (The following items were deleted from the chart) 06:20 04:40 09/17/2020 04:40 Discharged to Home. Impression: Alcohol dependence with dm5 intoxication; Gastritis, unspecified. Condition is Stable. Forms are Medication Reconciliation Form, Thank You Letter, Antibiotic Education, Prescription Opioid Use. Follow up: Private Physician; When: As needed; Reason: Recheck today's complaints, Re-evaluation by your physician. Problem is new. Symptoms have improved. rn
[2020-09-17] MEDS ORDERED: PROMETHAZINE INJ 25 MG/ML AMP ONE (05:27)
--- NOTE | 2020-09-17 10:57 | EKG ---
Test Date: 2020-09-17 Test Time: 03:58:51 Chore Worker: RV MEASUREMENT RESULTS: Intervals: Rate: 101 NE: 124 QRSD: 88 QT: 328 QTc: 425 [place]: P: 2 NE: 124 QRS: 81 T: 55 INTERPRETIVE STATEMENTS: Sinus tachycardia Otherwise normal ECG Compared to ECG 01/25/2020 19:45:43 Sinus rhythm no longer present Early repolarization no longer present Electronically Signed On 09-17-20 10:56:18 LICENSED BONDSMAN by Peter Banegas
[2020-09-22 14:46] VITALS: BP 123/73; TEMP 97.3; O2SAT 100
== END 2020-09-17 06:20 | disposition home or self-care (01) ==
LOC: ER 01:43
DX: K29.70 Gastritis, unspecified, without bleeding (principal); F10.229 Alcohol dependence with intoxication, unspecified; F41.8 Other specified anxiety disorders; F17.210 Nicotine dependence, cigarettes, uncomplicated; Z88.2 Allergy status to sulfonamides
CPT/HCPCS: 36415; 80048; 80076; 81003; 83690; 85025; 93005; 99284; J2405; J2550; J3411; J7030

== ENCOUNTER 2020-10-08 19:56 | Emergency (ER) | payer SELFPAY ==
[2020-10-08] MEDS ORDERED: NA CHLORIDE 0.9% 1,000 ML ONE (20:48)
[2020-10-08] MEDS ORDERED: THIAMINE 200 MG/2 ML INJ ONE (20:48)
[2020-10-08] MEDS ORDERED: MULTIVITAMINS 10 ML VIAL (INJ) IV ONE (20:48)
[2020-10-08] MEDS ORDERED: FOLIC ACID 5 MG/ML VIAL ONE (20:50)
[2020-10-08] MEDS ORDERED: LORazepam 2 MG/ML VIAL ONE ×2 (20:54→22:31)
[2020-10-08 20:56] LABS: Protime INR 0.79
[2020-10-08 21:01] LABS: Absolute Lymphocytes (CBC) 2.2 K/uL (0.7-4.9); Hematocrit 43.3 % (39.6-49.0); Lymphocytes % 33.9 % (15.3-44.8); MPV 7.7 fL (7.6-11.3); RBC Red Blood Cell Count 4.49 M/uL (4.33-5.43)
[2020-10-08] MEDS ORDERED: LIDOCAINE VISCOUS 2% SOLN 15 ML UDC ONE (21:04)
[2020-10-08] MEDS ORDERED: MAGNES/ALUMIN/SIMET 30ML UCUP ONE (21:04)
[2020-10-08 21:12] LABS: ALT/SGPT 39 U/L (12-78); AST/SGOT 32 U/L (15-37); Albumin 3.9 g/dL (3.4-5.0); Alkaline Phosphatase 93 U/L (45-117); BUN Blood Urea Nitrogen 4 mg/dL (7-18); Bicarbonate 29 mmol/L (21-32); Bilirubin Direct 0.1 mg/dL (0-0.2); Bilirubin Total 0.3 mg/dL (0.2-1.0); Glucose Level 92 mg/dL (74-106); Potassium 3.6 mmol/L (3.5-5.1); Protein, Total 7.8 g/dL (6.4-8.2); Sodium Level 137 mmol/L (136-145)
[2020-10-08 21:50] LABS: Urine Blood NEGATIVE (NEG); Urine Glucose NEGATIVE (NEG); Urine Protein NEGATIVE (NEG); Urine Specific Gravity 1.015 (1.005-1.030)
[2020-10-08 21:53] LABS: Barbiturates NEGATIVE (NEGATIVE); Benzodiazepines NEGATIVE (NEGATIVE); Cocaine NEGATIVE (NEGATIVE); METHAMPHETAM NEGATIVE (NEGATIVE); Methadone NEGATIVE (NEGATIVE); Opiates NEGATIVE (NEGATIVE); Phencyclidine NEGATIVE (NEGATIVE); THC Cannibis NEGATIVE (NEGATIVE)
[2020-10-08] MEDS ORDERED: ONDANSETRON 4 MG/2 ML VIAL ONE (22:18)
[2020-10-09] MEDS ORDERED: NA CHLORIDE 0.9% 1,000 ML ONE (00:11)
--- NOTE | 2020-10-09 05:44 | EDPHYS ---
Physician Documentation [facility] Name: Philip Saldaña Age: 30 yrs Sex: Male : 1990 Arrival Date: 10/08/2020 Time: 19:59 Bed 6 Private MD: ED Physician Luis Fernando Pacheco HPI: 10/08 20:37 This 30 yrs old Male presents to ER via Ambulatory with complaints of Detox. pkl 20:37 Patient admits to drinking heavily for the past 4 days. Now complaint of having chest pkl discomfort and having a panic attack.. Patient said he has been to alcohol rehabilitation at a facility in [place] about a year ago. Historical: - Allergies: 20:17 Sulfa (Sulfonamide Antibiotics); ca1 - PMHx: 20:17 Alcoholism; Anxiety; Depression; GERD; HYPOGLYCEMIA; ca1 - PSHx: 20:17 None; ca1 - Immunization history:: Adult Immunizations up to date, Flu vaccine is not up to date. - Social history:: Smoking status: Patient reports the use of cigarette tobacco products, smokes one-half pack cigarettes per day, Patient uses alcohol, patient/guardian reports recent binge of alcohol consumption. ROS: 20:37 Eyes: Negative for injury, pain, redness, and discharge, ENT: Negative for injury, pkl pain, and discharge, Neck: Negative for injury, pain, and swelling, Cardiovascular: Negative for chest pain, palpitations, and edema, Respiratory: Negative for shortness of breath, cough, wheezing, and pleuritic chest pain, Abdomen/GI: Negative for abdominal pain, nausea, vomiting, diarrhea, and constipation, Back: Negative for injury and pain, : Negative for injury, bleeding, discharge, and swelling, MS/Extremity: Negative for injury and deformity, Skin: Negative for injury, rash, and discoloration, Neuro: Negative for headache, weakness, numbness, tingling, and seizure. Exam: 20:37 Head/Face: Normocephalic, atraumatic. Eyes: Pupils equal round and reactive to light, pkl extra-ocular motions intact. Lids and lashes normal. Conjunctiva and sclera are non-icteric and not injected. Cornea within normal limits. Periorbital areas with no swelling, redness, or edema. ENT: Nares patent. No nasal discharge, no septal abnormalities noted. Tympanic membranes are normal and external auditory canals are clear. Oropharynx with no redness, swelling, or masses, exudates, or evidence of obstruction, uvula midline. Mucous membranes moist. Neck: Trachea midline, no thyromegaly or masses palpated, and no cervical lymphadenopathy. Supple, full range of motion without nuchal rigidity, or vertebral point tenderness. No Meningismus. Chest/axilla: Normal chest wall appearance and motion. Nontender with no deformity. No lesions are appreciated. Cardiovascular: Regular rate and rhythm with a normal S1 and S2. No gallops, murmurs, or rubs. Normal PMI, no JVD. No pulse deficits. Respiratory: Lungs have equal breath sounds bilaterally, clear to auscultation and percussion. No rales, rhonchi or wheezes noted. No increased work of breathing, no retractions or nasal flaring. Abdomen/GI: Soft, non-tender, with normal bowel sounds. No distension or tympany. No guarding or rebound. No evidence of tenderness throughout. Back: No spinal tenderness. No costovertebral tenderness. Full range of motion. Skin: Warm, dry with normal turgor. Normal color with no rashes, no lesions, and no evidence of cellulitis. MS/ Extremity: Pulses equal, no cyanosis. Neurovascular intact. Full, normal range of motion. Neuro: Awake and alert, GCS 15, oriented to person, place, time, and situation. Cranial nerves II-XII grossly intact. Motor strength 5/5 in all extremities. Sensory grossly intact. Cerebellar exam normal. Normal gait. 20:37 Psych: Behavior/mood is anxious, Affect is calm, Patient has no thoughts/intents to harm self or others. Vital Signs: 20:14 BP 135 / 90; Pulse 117; Resp 16 S; Temp 97.6(TE); Pulse Ox 100% on R/A; Weight 61.69 kg ca1 (R); Height 5 ft. 11 in. (180.34 cm) (R); 22:56 BP 130 / 93; Pulse 123; Resp 19; Pulse Ox 98% ; ea 23:48 BP 130 / 97; Pulse 107; Resp 18; Pulse Ox 99% on R/A; ea 10/09 00:00 BP 128 / 86; Pulse 95; Resp 18; Pulse Ox 99% ; ea 01:00 BP 107 / 66; Pulse 96; Resp 18; Pulse Ox 100% ; ea 02:42 BP 99 / 68; Pulse 95; Resp 18; Pulse Ox 98% ; ea 04:52 BP 123 / 85; Pulse 98; Resp 18; Temp 97.8; Pulse Ox 98% on R/A; ea 05:46 BP 123 / 88; Pulse 90; Resp 18; Pulse Ox 99% ; ea 10/08 20:14 Body Mass Index 18.97 (61.69 kg, 180.34 cm) ca1 MDM: 10/08 20:29 Patient medically screened. pkl 10/09 04:00 Data reviewed: vital signs, nurses notes, lab test result(s), EKG. pkl 05:40 ED course: Patient feeling better. Discussed lab results with patient. Advised to pkl follow at alcohol rehab. facility at [place]. Patient understood instructions. 10/08 20:35 Order name: Acetaminophen pkl 10/08 20:35 Order name: Basic Metabolic Panel pk 10/08 20:35 Order name: CBC with Diff; Complete Time: 21:06 pkl 10/08 20:35 Order name: ETOH Level; Complete Time: 21:15 pkl 10/08 20:35 Order name: Hepatic Function; Complete Time: 21:15 pkl 10/08 20:35 Order name: PT-INR; Complete Time: 21:06 pkl 10/08 20:35 Order name: Ptt, Activated; Complete Time: 21:06 pkl 10/08 20:35 Order name: Salicylate; Complete Time: 21:15 pkl 10/08 20:35 Order name: Urine Drug Screen; Complete Time: 22:11 pkl 10/08 20:37 Order name: Acetaminophen Level; Complete Time: 21:15 EDMS 10/08 20:37 Order name: Basic Metabolic Panel; Complete Time: 21:15 EDMS 10/08 21:30 Order name: Urine Dipstick--Ancillary (enter results); Complete Time: 22:11 ds4 10/09 03:45 Order name: ETOH Level ea 10/09 03:46 Order name: Alcohol Serum/Plasma; Complete Time: 04:35 EDMS 10/08 20:35 Order name: EKG; Complete Time: 20:37 pkl 10/08 20:35 Order name: EKG - Nurse/Tech; Complete Time: 20:46 pkl 10/08 20:35 Order name: IV Saline Lock; Complete Time: 20:46 pkl 10/08 20:35 Order name: Labs collected and sent; Complete Time: 20:46 pkl 10/08 20:35 Order name: Urine Dipstick-Ancillary (obtain specimen); Complete Time: 21:28 pkl Administered Medications: 10/08 20:45 Drug: Ativan 1 mg Route: IVP; Site: right antecubital; ea 21:30 Follow up: Response: No adverse reaction ea 20:46 Drug: Banana Bag - (NS 0.9% 1000 ml, foLIC Acid 1 mg, Thiamine 100 mg, Multivitamin 1 ea amp) Route: IV; Rate: calculated rate; Site: right antecubital; 20:59 Drug: GI Cocktail without - (Maalox Suspension 30 ml, Lidocaine Liquid 2 % 15 ea ml) Route: PO; 21:30 Follow up: Response: No adverse reaction ea 22:00 Drug: Zofran (Ondansetron) 4 mg Route: IVP; Site: right forearm; rv 10/09 03:50 Follow up: Response: No adverse reaction ea 10/08 22:19 Drug: Ativan 1 mg Route: IVP; Site: right forearm; rv 10/09 00:00 Follow up: Response: No adverse reaction ea Disposition: 10/09/20 05:43 Discharged to Home. Impression: Alcohol abuse. - Condition is Stable. - Medication Reconciliation Form, Thank You Letter, Antibiotic Education, Prescription Opioid Use form. - Follow up: Private Physician; When: 2 - 3 days; Reason: Re-evaluation by your physician. - Problem is new. - Symptoms have improved. Signatures: Dispatcher [employer] EDMS Luis Fernando Pacheco MD MD pkl Antunez, Elena, RN RN ea Vicente, Ronaldo, RN RN rv Acob, Cheryl RN CRIS ca1 Corrections: (The following items were deleted from the chart) 05:55 05:43 10/09/2020 05:43 Discharged to Home. Impression: Alcohol abuse. Condition is ea Stable. Forms are Medication Reconciliation Form, Thank You Letter, Antibiotic Education, Prescription Opioid Use. Follow up: Private Physician; When: 2 - 3 days; Reason: Re-evaluation by your physician. Problem is new. Symptoms have improved. pkl
--- NOTE | 2020-10-09 05:44 | ER ---
Nurse's Notes [facility] Name: Philip Saldaña Age: 30 yrs Sex: Male : 1990 Arrival Date: 10/08/2020 Time: 19:59 Bed 6 Private MD: Diagnosis: Alcohol abuse Presentation: 10/08 20:14 Chief complaint: Patient states: I have been on like a 4-day ludwig, and now am ca1 detoxing. I had Vodka 2 hours ago. Now am feeling chest discomfort and I feel like I am having a panic attack. Coronavirus screen: Client denies travel out of the [place] in the last 14 days. At this time, the client does not indicate any symptoms associated with coronavirus-19. Ebola Screen: Patient negative for fever greater than or equal to 101.5 degrees Fahrenheit, and additional compatible Ebola Virus Disease symptoms Patient denies exposure to infectious person. Patient denies travel to an Ebola-affected area in the 21 days before illness onset. No symptoms or risks identified at this time. Initial Sepsis Screen: Does the patient meet any 2 criteria? No. Patient's initial sepsis screen is negative. Does the patient have a suspected source of infection? No. Patient's initial sepsis screen is negative. Risk Assessment: Do you want to hurt yourself or someone else? Patient reports no desire to harm self or others. Onset of symptoms was October 08, 2020. 20:14 Method Of Arrival: Ambulatory ca1 20:14 Acuity: KASSIDY 3 ca1 Historical: - Allergies: 20:17 Sulfa (Sulfonamide Antibiotics); ca1 - PMHx: 20:17 Alcoholism; Anxiety; Depression; GERD; HYPOGLYCEMIA; ca1 - PSHx: 20:17 None; ca1 - Immunization history:: Adult Immunizations up to date, Flu vaccine is not up to date. - Social history:: Smoking status: Patient reports the use of cigarette tobacco products, smokes one-half pack cigarettes per day, Patient uses alcohol, patient/guardian reports recent binge of alcohol consumption. Screenin:47 Abuse screen: Denies threats or abuse. Nutritional screening: No deficits noted. ea Tuberculosis screening: No symptoms or risk factors identified. Fall Risk IV access (20 points). Assessment: 20:46 General: Appears slender, Behavior is anxious. Pain: Denies pain. Neuro: Level of ea Consciousness is awake, alert, obeys commands, Oriented to person, place, time, situation. Cardiovascular: Patient's skin is warm and dry. Respiratory: Airway is patent Respiratory effort is even, unlabored, Respiratory pattern is regular, symmetrical. Derm: Skin is pink, warm \T\ dry. 21:30 Reassessment: Patient and/or family updated on plan of care and expected duration. Pain ea level reassessed. Patient is alert, oriented x 3, equal unlabored respirations, skin warm/dry/pink. 23:48 Reassessment: Patient and/or family updated on plan of care and expected duration. Pain ea level reassessed. Patient is alert, oriented x 3, equal unlabored respirations, skin warm/dry/pink. 10/09 00:00 Reassessment: Pt resting with eyes closed, respirations even and unlabored, chest ea expansions even and symmetrical. No obvious s/s of pain or discomfort noted at this time. 01:00 Reassessment: Pt resting with eyes closed, respirations even and unlabored, chest ea expansions even and symmetrical. No obvious s/s of pain or discomfort noted at this time. 02:39 Reassessment: Pt resting with eyes closed, respirations even and unlabored, chest ea expansions even and symmetrical. No obvious s/s of pain or discomfort noted at this time. 03:30 Reassessment: Patient and/or family updated on plan of care and expected duration. Pain ea level reassessed. Patient is alert, oriented x 3, equal unlabored respirations, skin warm/dry/pink. Patient states feeling better. 04:52 Reassessment: Patient and/or family updated on plan of care and expected duration. Pain ea level reassessed. Patient is alert, oriented x 3, equal unlabored respirations, skin warm/dry/pink. Pt tolerated PO fluids Patient states feeling better. 05:54 Reassessment: Patient and/or family updated on plan of care and expected duration. Pain ea level reassessed. Patient is alert, oriented x 3, equal unlabored respirations, skin warm/dry/pink. Discharge instruction given to patient, verbalized the understanding of instruction. Vital Signs: 10/08 20:14 BP 135 / 90; Pulse 117; Resp 16 S; Temp 97.6(TE); Pulse Ox 100% on R/A; Weight 61.69 kg ca1 (R); Height 5 ft. 11 in. (180.34 cm) (R); 22:56 BP 130 / 93; Pulse 123; Resp 19; Pulse Ox 98% ; ea 23:48 BP 130 / 97; Pulse 107; Resp 18; Pulse Ox 99% on R/A; ea 10/09 00:00 BP 128 / 86; Pulse 95; Resp 18; Pulse Ox 99% ; ea 01:00 BP 107 / 66; Pulse 96; Resp 18; Pulse Ox 100% ; ea 02:42 BP 99 / 68; Pulse 95; Resp 18; Pulse Ox 98% ; ea 04:52 BP 123 / 85; Pulse 98; Resp 18; Temp 97.8; Pulse Ox 98% on R/A; ea 05:46 BP 123 / 88; Pulse 90; Resp 18; Pulse Ox 99% ; ea 10/08 20:14 Body Mass Index 18.97 (61.69 kg, 180.34 cm) ca1 ED Course: 10/08 19:59 Patient arrived in ED. ds1 20:16 Triage completed. ca1 20:17 Arm band placed on right wrist. ca1 20:29 Luis Fernando Pacheco MD is Attending Physician. pkl 20:33 Cande Jin RN is Primary Nurse. ea 20:40 Inserted saline lock: 18 gauge in right forearm, using aseptic technique. Blood rv collected. 20:40 Initial lab(s) drawn, by me, sent to lab. rv 20:46 Patient has correct armband on for positive identification. Bed in low position. Call ea light in reach. ekg monitor tech on. Pulse ox on. NIBP on. 21:28 Urine Drug Screen Sent. ds4 10/09 05:54 No provider procedures requiring assistance completed. IV discontinued, intact, ea bleeding controlled, No redness/swelling at site. Pressure dressing applied. Administered Medications: 10/08 20:45 Drug: Ativan 1 mg Route: IVP; Site: right antecubital; ea 21:30 Follow up: Response: No adverse reaction ea 20:46 Drug: Banana Bag - (NS 0.9% 1000 ml, foLIC Acid 1 mg, Thiamine 100 mg, Multivitamin 1 ea amp) Route: IV; Rate: calculated rate; Site: right antecubital; 20:59 Drug: GI Cocktail without - (Maalox Suspension 30 ml, Lidocaine Liquid 2 % 15 ea ml) Route: PO; 21:30 Follow up: Response: No adverse reaction ea 22:00 Drug: Zofran (Ondansetron) 4 mg Route: IVP; Site: right forearm; rv 10/09 03:50 Follow up: Response: No adverse reaction ea 10/08 22:19 Drug: Ativan 1 mg Route: IVP; Site: right forearm; rv 10/09 00:00 Follow up: Response: No adverse reaction ea Outcome: 05:43 Discharge ordered by . aline 05:54 Discharged to home ambulatory, with family. ea 05:54 Condition: stable 05:54 Discharge instructions given to patient, Instructed on discharge instructions, follow up and referral plans. Demonstrated understanding of instructions, follow-up care. 05:55 Patient left the ED. ea Signatures: Luis Fernando Pacheco MD MD pkl [place], Demi ds1 [place] ds4 Cande Jin RN RN ea Vicente, Ronaldo, RN RN rv Acob, Cheryl, RN RN ca1
[2020-10-09 06:06] VITALS: TEMP 97.8
[2020-10-09 06:08] VITALS: BP 123/88; O2SAT 99
== END 2020-10-09 05:55 | disposition home or self-care (01) ==
LOC: ER 19:56
DX: F10.20 Alcohol dependence, uncomplicated (principal); F17.210 Nicotine dependence, cigarettes, uncomplicated; Z88.2 Allergy status to sulfonamides
CPT/HCPCS: 36415; 80048; 80076; 80307; 80320; 80329; 81003; 85025; 85610; 85730; 93005; 99284; J2405; J3411; J7030

== ENCOUNTER 2020-12-13 16:28 | Emergency (ER) | payer SELFPAY ==
--- OUTSIDE RECORDS SUMMARY | 2020-12-13 16:30 | XMS REPORT | Continuity of Care Document ---
:1990 Author Organization [facility] t Address [address] [place] [address] Care Team Providers Name Role Phone Singer PEREZ Attending Clinician Problems This patient has no known problems. Allergies, Adverse Reactions, Alerts This patient has no known allergies or adverse reactions. Medications This patient has no known medications. Procedures This patient has no known procedures. Encounters Start End Encounter Admission Attending Care Care Encounter Source Date/Time Date/Time Type Type Clinicians Facility Department ID 2020-10-22 2020-10-22 Emergency Singer [facility] [[email or web address] [id number] 14:16:00 16:04:00 Zen Renae [id number] Aleksandar [id number] [place] [id number] Results This patient has no known results.
[2020-12-13] MEDS ORDERED: TETANUS & DIPHTHERIA TOX,ADULT 0.5 ML VIAL ONE (17:12)
[2020-12-13] MEDS ORDERED: LIDOCAINE 1% MPF 5 ML VIAL ONE (17:12)
--- NOTE | 2020-12-13 17:51 | ER ---
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 Bleeding ca1 controlled. Coronavirus screen: Client denies travel out of the [place] in the last 14 days. At this time, the client does not indicate any symptoms associated with coronavirus-19. Ebola Screen: Patient negative for fever greater than or equal to 101.5 degrees Fahrenheit, and additional compatible Ebola Virus Disease symptoms Patient denies exposure to infectious person. Patient denies travel to an Ebola-affected area in the 21 days before illness onset. No symptoms or risks identified at this time. Complicating Factors: There are no complicating factors for this patient. Initial Sepsis Screen: Does the patient meet any 2 criteria? No. Patient's initial sepsis screen is negative. Does the patient have a suspected source of infection? No. Patient's initial sepsis screen is negative. Risk Assessment: Do you want to hurt yourself or someone else? Patient reports no desire to harm self or others. Onset of symptoms was December 13, 2020. 16:35 Method Of Arrival: Ambulatory ca1 16:35 Acuity: KASSIDY 4 ca1 Historical: - Allergies: 16:37 Sulfa (Sulfonamide Antibiotics); ca1 - PMHx: 16:37 Alcoholism; Anxiety; Depression; GERD; HYPOGLYCEMIA; ca1 - PSHx: 16:37 None; ca1 - Immunization history:: Last tetanus immunization: < 5 years ago unknown, Flu vaccine is not up to date. - Social history:: Smoking status: Patient reports the use of cigarette tobacco products, smokes one-half pack cigarettes per day. Screenin:08 Abuse screen: Denies threats or abuse. Nutritional screening: No deficits noted. jd3 Tuberculosis screening: No symptoms or risk factors identified. Fall Risk Ambulatory Aid- None/Bed Rest/Nurse Assist (0 pts). Gait- Normal/Bed Rest/Wheelchair (0 pts) Mental Status- Oriented to own ability (0 pts). Total Harmon Fall Scale indicates No Risk (0-24 pts). Assessment: 17:30 General: Appears in no apparent distress. comfortable, Behavior is calm, cooperative, jd3 appropriate for age. Pain: Complains of pain in right knee Quality of pain is described as aching. Neuro: Level of Consciousness is awake, alert, obeys commands, Oriented to person, place, time, situation. Cardiovascular: Denies chest pain, Capillary refill < 3 seconds Patient's skin is warm and dry. Respiratory: Airway is patent Respiratory effort is even, unlabored, Respiratory pattern is regular, symmetrical, Denies cough, shortness of breath. GI: No signs and/or symptoms were reported involving the gastrointestinal system. : No signs and/or symptoms were reported regarding the genitourinary system. EENT: No signs and/or symptoms were reported regarding the EENT system. Derm: Skin is intact, Skin is dry, Skin is normal, Skin temperature is warm. Musculoskeletal: Circulation, motion, and sensation intact. Range of motion: intact in all extremities. Injury Description: Laceration sustained to right knee is clean, not bleeding. 18:07 Reassessment: Patient appears in no apparent distress at this time. Patient and/or jd3 family updated on plan of care and expected duration. Pain level reassessed. Patient is alert, oriented x 3, equal unlabored respirations, skin warm/dry/pink. Vital Signs: 16:35 BP 140 / 100; Pulse 111; Resp 18 S; Temp 97.3(TE); Pulse Ox 98% on R/A; Weight 72.57 kg ca1 (R); Height 5 ft. 11 in. (180.34 cm) (R); Pain 7/10; 16:35 Body Mass Index 22.32 (72.57 kg, 180.34 cm) ca1 ED Course: 16:29 Patient arrived in ED. am2 16:36 Triage completed. ca1 16:37 Arm band placed on right wrist. ca1 16:37 Pressure dressing applied. ca1 16:40 Hannah Uriostegui FNP-C is PHCP. kb 16:40 Fco García MD is Attending Physician. kb 17:57 Ganesh Garcia RN is Primary Nurse. jd3 18:08 No provider procedures requiring assistance completed. Patient did not have IV access jd3 during this emergency room visit. 18:09 Patient has correct armband on for positive identification. Bed in low position. Call jd3 light in reach. Side rails up X 1. Adult w/ patient. Administered Medications: 16:57 Drug: Tetanus-Diphtheria Toxoid Adult 0.5 ml {Leasing Professional: [employer]. Exp: ca1 03/14/2022. Lot #: [id number]. } Route: IM; Site: right deltoid; 17:50 Follow up: Response: No adverse reaction jd3 17:00 Drug: Lidocaine (1 %) 1 vials Volume: 5 ml; Route: Infiltration; jd3 18:00 Follow up: Response: No adverse reaction jd3 Outcome: 17:50 Discharge ordered by . ash 18:08 Discharged to home ambulatory, with family. jd3 18:08 Condition: stable 18:08 Discharge instructions given to patient, Instructed on discharge instructions, follow up and referral plans. Demonstrated understanding of instructions, follow-up care. 18:09 Patient left the ED. jd3 Signatures: Hannah Uriostegui, INDUSTRIAL MECHANIC-C INDUSTRIAL MECHANIC-Lyn Dietrich Jonathon, RN RN jd3 Doris Guadarrama RN RN ca1
--- NOTE | 2020-12-13 17:51 | EDPHYS ---
Physician Documentation [facility] Name: Philip Saldaña Age: 30 yrs Sex: Male : 1990 Arrival Date: 12/13/2020 Time: 16:29 Bed 14 Private MD: TERESO Physician Fco García HPI: 12/13 17:44 This 30 yrs old Male presents to ER via Ambulatory with complaints of kb Laceration To Leg. 17:44 The patient has a laceration related to: doing yard work, chainsaw, occurred outdoors, kb and there are no complicating factors. The injury was accidental. The laceration(s) is(are) located on the right knee. Onset: The symptoms/episode began/occurred just prior to arrival. Associated signs and symptoms: The patient has no apparent associated signs or symptoms. The patient has not experienced similar symptoms in the past. The patient has not recently seen a physician. Historical: - Allergies: 16:37 Sulfa (Sulfonamide Antibiotics); ca1 - PMHx: 16:37 Alcoholism; Anxiety; Depression; GERD; HYPOGLYCEMIA; ca1 - PSHx: 16:37 None; ca1 - Immunization history:: Last tetanus immunization: < 5 years ago unknown, Flu vaccine is not up to date. - Social history:: Smoking status: Patient reports the use of cigarette tobacco products, smokes one-half pack cigarettes per day. ROS: 17:43 Constitutional: Negative for fever, chills, and weight loss, MS/Extremity: Negative for kb injury and deformity, Neuro: Negative for headache, weakness, numbness, tingling, and seizure. 17:43 Skin: Positive for laceration(s), of the right knee. Exam: 17:44 Constitutional: This is a well developed, well nourished patient who is awake, alert, kb and in no acute distress. Head/Face: Normocephalic, atraumatic. MS/ Extremity: Pulses equal, no cyanosis. Neurovascular intact. Full, normal range of motion. Neuro: Awake and alert, GCS 15, oriented to person, place, time, and situation. Cranial nerves II-XII grossly intact. Moves all extremities. Sensory grossly intact. Cerebellar exam normal. Normal gait. 17:44 Respiratory: the patient does not display signs of respiratory distress, Respirations: normal. 17:44 Skin: injury, laceration(s), the wound is approximately 4 cm(s), of the right knee, that can be described as clean, no foreign body, linear, without bleeding. Vital Signs: 16:35 BP 140 / 100; Pulse 111; Resp 18 S; Temp 97.3(TE); Pulse Ox 98% on R/A; Weight 72.57 kg ca1 (R); Height 5 ft. 11 in. (180.34 cm) (R); Pain 7/10; 16:35 Body Mass Index 22.32 (72.57 kg, 180.34 cm) ca1 Laceration: 17:43 Wound Repair of 4cm ( 1.6in ) subcutaneous laceration to right knee. Linear shaped.. kb Distal neuro/vascular/tendon intact. Anesthesia: Wound infiltrated with 5 mls of 1% lidocaine. Wound prep: Extensive cleansing with hibiclenz by me, Wound irrigation with saline by me. Skin closed with 6 4-0 Prolene using simple sutures and sterile technique. Patient tolerated well. MDM: 16:40 Patient medically screened. kb 16:40 Patient medically screened. kb 17:43 Data reviewed: vital signs, nurses notes. Data interpreted: Pulse oximetry: on room air kb is 98 %. Interpretation: normal. Counseling: I had a detailed discussion with the patient and/or guardian regarding: the historical points, exam findings, and any diagnostic results supporting the discharge/admit diagnosis, the need for outpatient follow up, a family practitioner, to return to the emergency department if symptoms worsen or persist or if there are any questions or concerns that arise at home. 12/13 16:48 Order name: Prolene, Sutures; Complete Time: 16:53 kb 12/13 16:48 Order name: Dressing - Wound; Complete Time: 16:53 kb 12/13 16:48 Order name: Gloves, Sterile; Complete Time: 16:53 kb 12/13 16:48 Order name: Setup Suture Tray; Complete Time: 16:53 kb Administered Medications: 16:57 Drug: Tetanus-Diphtheria Toxoid Adult 0.5 ml {Weld Inspector: [employer]. Exp: ca1 03/14/2022. Lot #: [id number]. } Route: IM; Site: right deltoid; 17:50 Follow up: Response: No adverse reaction jd3 17:00 Drug: Lidocaine (1 %) 1 vials Volume: 5 ml; Route: Infiltration; jd3 18:00 Follow up: Response: No adverse reaction jd3 Disposition: 12/13/20 17:50 Discharged to Home. Impression: Laceration without foreign body of knee. - Condition is Stable. - Discharge Instructions: Laceration Care, Adult, [id number]. - Medication Reconciliation Form, Thank You Letter, Antibiotic Education, Prescription Opioid Use form. - Follow up: Emergency Department; When: As needed; Reason: Worsening of condition. Follow up: Private Physician; When: 2 - 3 days; Reason: Recheck today's complaints, Continuance of care, Re-evaluation by your physician. - Notes: Have sutures removed in 10-14 days Keep clean and dry Try to keep knee as straight as possible to prevent pulling on sutures Addendum: 12/14/2020 19:49 Co-signature as Attending Physician, Fco García MD I agree with the assessment and c huang plan of care. Signatures: Hannah Uriostegui, SEAFOOD FISHERMAN-C SEAFOOD FISHERMAN-Ckb Fco García MD MD cha Davies, Jonathon RN RN jd3 Doris Guadarrama RN RN ca1 Corrections: (The following items were deleted from the chart) 12/13 18:09 17:50 12/13/2020 17:50 Discharged to Home. Impression: Laceration without foreign body jd3 of knee. Condition is Stable. Forms are Medication Reconciliation Form, Thank You Letter, Antibiotic Education, Prescription Opioid Use. Follow up: Emergency Department; When: As needed; Reason: Worsening of condition. Follow up: Private Physician; When: 2 - 3 days; Reason: Recheck today's complaints, Continuance of care, Re-evaluation by your physician. kb
[2020-12-13 19:20] VITALS: BP 140/100; TEMP 97.3; O2SAT 98
== END 2020-12-13 18:09 | disposition home or self-care (01) ==
LOC: ER 16:28
PROC: 0JQN0ZZ Repair Right Lower Leg Subcutaneous Tissue and Fascia, Open Approach (ICD-10-PCS; principal; 2020-12-13)
DX: S81.011A Laceration without foreign body, right knee, initial encounter (principal); W29.3XXA Contact with powered garden and outdoor hand tools and machinery, initial encounter; Y93.89 Activity, other specified; Y92.89 Other specified places as the place of occurrence of the external cause; Z23 Encounter for immunization; Z88.2 Allergy status to sulfonamides; F17.210 Nicotine dependence, cigarettes, uncomplicated
CPT/HCPCS: 90471; 90714; 99283

== ENCOUNTER 2020-12-25 09:50 | Emergency (ER) | payer SELFPAY ==
--- OUTSIDE RECORDS SUMMARY | 2020-12-25 09:52 | XMS REPORT | Continuity of Care Document ---
:1990 Author Organization [facility] t Address [address] [place] [address] Care Team Providers Name Role Phone Velazquez Attending Clinician Problems This patient has no known problems. Allergies, Adverse Reactions, Alerts This patient has no known allergies or adverse reactions. Medications This patient has no known medications. Procedures This patient has no known procedures. Encounters Start End Encounter Admission Attending Care Care Encounter Source Date/Time Date/Time Type Type Clinicians Facility Department ID 2020-10-22 2020-10-22 Emergency Singer [facility] [id number] 14:16:00 16:04:00 Zen Renae [id number] Aleksandar [id number] [place] [id number] Results This patient has no known results.
[2020-12-25 10:44] LABS: Absolute Lymphocytes (CBC) 1.9 K/uL (0.7-4.9); Basophils % 0.8 % (0-1.3); Hematocrit 45.2 % (39.6-49.0); Lymphocytes % 23.4 % (15.3-44.8); MPV 7.7 fL (7.6-11.3); RBC Red Blood Cell Count 4.71 M/uL (4.33-5.43)
[2020-12-25] MEDS ORDERED: ONDANSETRON 4 MG/2 ML VIAL ONE ×2 (10:54→12:47)
[2020-12-25] MEDS ORDERED: NA CHLORIDE 0.9% 1,000 ML ONE (10:54)
[2020-12-25] MEDS ORDERED: FOLIC ACID 1 MG, THIAMINE HCL 100 MG, MULTIVITAMINS INJ 10 ML in NA CHLORIDE 0.9% 1,000 ML IV SCH (11:00)
[2020-12-25 11:02] LABS: Protime INR 0.91
[2020-12-25] MEDS ORDERED: LORazepam 2 MG/ML VIAL ONE ×2 (11:08→12:47)
[2020-12-25 11:45] LABS: ALT/SGPT 47 U/L (12-78); AST/SGOT 33 U/L (15-37); BUN Blood Urea Nitrogen 13 mg/dL (7-18); Bicarbonate 21 mmol/L (21-32); Bilirubin Direct 0.2 mg/dL (0-0.2); Bilirubin Total 0.8 mg/dL (0.2-1.0); Glucose Level 80 mg/dL (74-106); Potassium 4.4 mmol/L (3.5-5.1); Sodium Level 132 mmol/L (136-145)
[2020-12-25 11:55] LABS: Alkaline Phosphatase ND U/L (45-117)
[2020-12-25 13:07] LABS: Barbiturates NEGATIVE (NEGATIVE); Benzodiazepines NEGATIVE (NEGATIVE); Cocaine NEGATIVE (NEGATIVE); METHAMPHETAM NEGATIVE (NEGATIVE); Methadone NEGATIVE (NEGATIVE); Opiates NEGATIVE (NEGATIVE); Phencyclidine NEGATIVE (NEGATIVE); THC Cannibis NEGATIVE (NEGATIVE)
[2020-12-25 13:20] LABS: Urine Blood NEGATIVE (NEG); Urine Glucose NEGATIVE (NEG); Urine Protein NEGATIVE (NEG); Urine Specific Gravity 1.015 (1.005-1.030); Urine pH 5.5 (5.0-7.0)
--- NOTE | 2020-12-25 16:18 | EDPHYS ---
Physician Documentation [facility] Name: Philip Saldaña Age: 30 yrs Sex: Male : 1990 Arrival Date: 12/25/2020 Time: 09:50 Bed 4 Private MD: ED Physician Leonel Nichols HPI: 12/25 11:50 This 30 yrs old Male presents to ER via Ambulatory with complaints of Alcohol jr8 Withdrawal. 11:50 Patient stated that he has been drinking for the past 7 years on/off. Binge drinks a jr8 lot of times on the weekends. Stated that he has had acute withdrawal several times in the past. Has been to rehab facility in past as well. Binged drank this past week and stopped this morning early. Started to have the shakes and could not walk well. Very anxious . Severity of symptoms: At their worst the symptoms were moderate in the emergency department the symptoms are unchanged. The patient has experienced similar episodes in the past, several times. The patient has not recently seen a physician. Historical: - Allergies: 10:17 Sulfa (Sulfonamide Antibiotics); ca1 - Home Meds: 10:17 Omeprazole Oral [Active]; ca1 - PMHx: 10:17 Alcoholism; Anxiety; Depression; GERD; HYPOGLYCEMIA; ca1 - PSHx: 10:17 None; ca1 - Immunization history:: Flu vaccine is not up to date. - Social history:: Smoking status: Patient reports the use of cigarette tobacco products, smokes one pack cigarettes per day. ROS: 11:50 Eyes: Negative for injury, pain, redness, and discharge, ENT: Negative for injury, jr8 pain, and discharge, Neck: Negative for injury, pain, and swelling, Cardiovascular: Negative for chest pain, palpitations, and edema, Respiratory: Negative for shortness of breath, cough, wheezing, and pleuritic chest pain, Abdomen/GI: Negative for abdominal pain, nausea, vomiting, diarrhea, and constipation, Back: Negative for injury and pain, MS/Extremity: Negative for injury and deformity, Skin: Negative for injury, rash, and discoloration. 11:50 Neuro: Positive for dizziness. 11:50 Psych: Positive for anxiety, alcohol dependence. Exam: 11:50 Eyes: Pupils equal round and reactive to light, extra-ocular motions intact. Lids and jr8 lashes normal. Conjunctiva and sclera are non-icteric and not injected. Cornea within normal limits. Periorbital areas with no swelling, redness, or edema. ENT: Nares patent. No nasal discharge, no septal abnormalities noted. Tympanic membranes are normal and external auditory canals are clear. Oropharynx with no redness, swelling, or masses, exudates, or evidence of obstruction, uvula midline. Mucous membranes moist. Neck: Trachea midline, no thyromegaly or masses palpated, and no cervical lymphadenopathy. Supple, full range of motion without nuchal rigidity, or vertebral point tenderness. No Meningismus. Respiratory: Lungs have equal breath sounds bilaterally, clear to auscultation and percussion. No rales, rhonchi or wheezes noted. No increased work of breathing, no retractions or nasal flaring. Abdomen/GI: Soft, non-tender, with normal bowel sounds. No distension or tympany. No guarding or rebound. No evidence of tenderness throughout. Back: No spinal tenderness. No costovertebral tenderness. Full range of motion. Skin: Warm, dry with normal turgor. Normal color with no rashes, no lesions, and no evidence of cellulitis. MS/ Extremity: Pulses equal, no cyanosis. Neurovascular intact. Full, normal range of motion. Neuro: Awake and alert, GCS 15, oriented to person, place, time, and situation. Cranial nerves II-XII grossly intact. Motor strength 5/5 in all extremities. Sensory grossly intact. Restint tremor present in arms and legs 11:50 Cardiovascular: Rate: tachycardic, Rhythm: regular, Pulses: Pulses are 2+ in right radial artery and left radial artery. Heart sounds: normal, normal S1and S2, no S3 or S4, no murmur, no rub, no gallop, Edema: is not appreciated, JVD: is not appreciated. 11:53 ECG was reviewed by the Attending Physician. jr8 Vital Signs: 10:13 BP 110 / 95; Pulse 141; Resp 18 S; Temp 97.9(TE); Pulse Ox 98% on R/A; Weight 72.57 kg ca1 (R); Height 5 ft. 11 in. (180.34 cm) (R); Pain 5/10; 11:00 BP 136 / 84; Pulse 104; Resp 20; Pulse Ox 99% on R/A; tw2 12:00 BP 128 / 83; Pulse 105; Resp 18; Pulse Ox 97% on R/A; tw2 13:00 BP 130 / 77; Pulse 105; Resp 18; Pulse Ox 97% on R/A; tw2 14:00 BP 132 / 86; Pulse 107; Resp 19; Pulse Ox 99% on R/A; tw2 15:00 BP 127 / 96; Pulse 107; Resp 19; Pulse Ox 99% on R/A; tw2 10:13 Body Mass Index 22.32 (72.57 kg, 180.34 cm) ca1 Procedures: 16:08 Suture/Staple removal: Removed 4 sutures, from right leg, site appears well healed, jr8 Patient tolerated well. MDM: 10:18 Patient medically screened. jr8 16:07 Data reviewed: vital signs, nurses notes, lab test result(s), EKG. Data interpreted: jr8 Pulse oximetry: on room air is 97 %. Interpretation: normal. Counseling: I had a detailed discussion with the patient and/or guardian regarding: the historical points, exam findings, and any diagnostic results supporting the discharge/admit diagnosis, lab results, the need for outpatient follow up, a psychiatrist, to return to the emergency department if symptoms worsen or persist or if there are any questions or concerns that arise at home. Response to treatment: the patient's symptoms have markedly improved after treatment. ED course: Patient checking into detox facility upon discharge. Doing well at this time. VS stable. 12/25 10:18 Order name: Acetaminophen [facility] 12/25 10:18 Order name: Basic Metabolic Panel [facility] 12/25 10:18 Order name: CBC with Diff 12/25 10:18 Order name: ETOH Level; Complete Time: 11:48 [facility] 12/25 10:18 Order name: Hepatic Function; Complete Time: 12:16 [facility] 12/25 10:18 Order name: PT-INR; Complete Time: 11:19 [facility] 12/25 10:18 Order name: Ptt, Activated; Complete Time: 11:19 [facility] 12/25 10:18 Order name: Salicylate; Complete Time: 11:19 [facility] 12/25 10:18 Order name: Urine Drug Screen; Complete Time: 13:44 [facility] 12/25 10:19 Order name: Acetaminophen Level; Complete Time: 12:16 EDMS 12/25 10:19 Order name: Basic Metabolic Panel; Complete Time: 12:16 EDMD 12/25 10:19 Order name: CBC with Automated Diff; Complete Time: 10:52 [facility] 12/25 12:09 Order name: Urine Dipstick--Ancillary (enter results) 12/25 12:09 Order name: Urine Dipstick-Ancillary; Complete Time: 13:44 EDMD 12/25 10:18 Order name: EKG; Complete Time: 10:19 [facility] 12/25 10:18 Order name: EKG - Nurse/Tech; Complete Time: 11:18 8 12/25 10:18 Order name: IV Saline Lock; Complete Time: 10:40 [facility] 12/25 10:18 Order name: Labs collected and sent; Complete Time: 10:40 [facility] 12/25 10:18 Order name: Urine Dipstick-Ancillary (obtain specimen); Complete Time: 13:12 jr8 EC:53 Rate is 106 beats/min. Rhythm is regular, Sinus tachycardia. QRS [place] is Normal. [place] jr8 interval is normal at 130 msec. QRS interval is normal at 88 msec. QT interval is normal at 438 msec. No Q waves. T waves are Normal. No ST changes noted. Clinical impression: Sinus tachycardia. Interpreted by me. Reviewed by me. Administered Medications: 10:40 Drug: NS 0.9% 1000 ml Route: IV; Rate: 1000 ml; Site: right forearm; tw2 12:34 Follow up: Response: No adverse reaction; IV Status: Completed infusion; IV Intake: tw2 1000ml 10:40 Drug: Zofran (Ondansetron) 4 mg Route: IVP; Site: right forearm; tw2 10:55 Follow up: Response: No adverse reaction; Nausea is decreased tw2 10:54 Drug: Ativan 2 mg Route: IVP; Site: right forearm; tw2 12:34 Follow up: Response: No adverse reaction; Anxiety unchanged tw2 12:32 Drug: Ativan 2 mg Route: IVP; Site: right forearm; tw2 13:00 Follow up: Response: No adverse reaction; Anxiety decreased tw2 12:33 Drug: Zofran (Ondansetron) 4 mg Route: IVP; Site: right forearm; tw2 13:00 Follow up: Response: No adverse reaction; Nausea is decreased tw2 12:45 Drug: Banana Bag - (NS 0.9% 1000 ml, foLIC Acid 1 mg, Thiamine 100 mg, Multivitamin 1 tw2 amp) Route: IV; Rate: calculated rate; Site: right forearm; 16:01 Follow up: Rate change 500 ml/hr tw2 Disposition: 19:24 Co-signature as Attending Physician, Leonel Nichols MD I agree with the assessment and kdr plan of care. Disposition: 12/25/20 16:18 Discharged to Home. Impression: Alcohol abuse, Alcohol dependence with withdrawal. - Condition is Stable. - Discharge Instructions: Alcohol Intoxication. - Medication Reconciliation Form, Thank You Letter, Antibiotic Education, Prescription Opioid Use, Work release form form. - Follow up: Private Physician; When: Upon discharge from the Emergency Department; Reason: Recheck today's complaints, Continuance of care, Re-evaluation by your physician. - Problem is new. - Symptoms have improved. Signatures: Dispatcher [employer] EDMS Leonel Nichols MD MD kdr Roszak, Josh, PA PA jr8 Jael Hendricks RN RN tw2 Doris Guadarrama RN RN ca1 Corrections: (The following items were deleted from the chart) 17:27 16:18 12/25/2020 16:18 Discharged to Home. Impression: Alcohol abuse; Alcohol tw2 dependence with withdrawal. Condition is Stable. Forms are Medication Reconciliation Form, Thank You Letter, Antibiotic Education, Prescription Opioid Use. Follow up: Private Physician; When: Upon discharge from the Emergency Department; Reason: Recheck today's complaints, Continuance of care, Re-evaluation by your physician. Problem is new. Symptoms have improved. jr8
--- NOTE | 2020-12-25 16:18 | ER ---
Nurse's Notes [facility] Name: Philip Saldaña Age: 30 yrs Sex: Male : 1990 Arrival Date: 12/25/2020 Time: 09:50 Bed 4 Private MD: Diagnosis: Alcohol abuse;Alcohol dependence with withdrawal Presentation: 12/25 10:13 Chief complaint: Patient states: Detox from Alcohol. Last drink was Vodka at [id number] ca1 today. Started drinking since yesterday, haven't ate in the last 48 hours and haven't slept either. Feel like I am about to pass out. Coronavirus screen: Client denies travel out of the [place] in the last 14 days. At this time, the client does not indicate any symptoms associated with coronavirus-19. Ebola Screen: Patient negative for fever greater than or equal to 101.5 degrees Fahrenheit, and additional compatible Ebola Virus Disease symptoms Patient denies exposure to infectious person. Patient denies travel to an Ebola-affected area in the 21 days before illness onset. No symptoms or risks identified at this time. Initial Sepsis Screen: Does the patient meet any 2 criteria? No. Patient's initial sepsis screen is negative. Does the patient have a suspected source of infection? No. Patient's initial sepsis screen is negative. Risk Assessment: Do you want to hurt yourself or someone else? Patient reports no desire to harm self or others. Onset of symptoms was December 25, 2020. 10:13 Acuity: KASSIDY 2 ca1 10:13 Method Of Arrival: Ambulatory ca1 Historical: - Allergies: 10:17 Sulfa (Sulfonamide Antibiotics); ca1 - Home Meds: 10:17 Omeprazole Oral [Active]; ca1 - PMHx: 10:17 Alcoholism; Anxiety; Depression; GERD; HYPOGLYCEMIA; ca1 - PSHx: 10:17 None; ca1 - Immunization history:: Flu vaccine is not up to date. - Social history:: Smoking status: Patient reports the use of cigarette tobacco products, smokes one pack cigarettes per day. Screenin:18 Abuse screen: Denies threats or abuse. Nutritional screening: No deficits noted. tw2 Tuberculosis screening: No symptoms or risk factors identified. Fall Risk None identified. Assessment: 10:25 General: Appears in no apparent distress. slender, well groomed, Behavior is anxious. tw2 General: Appears Behavior is. Pain: Complains of pain in abdomen. Neuro: Level of Consciousness is awake, alert, obeys commands, Oriented to person, place, time, situation. Cardiovascular: Patient's skin is warm and dry. Respiratory: Airway is patent Respiratory effort is even, unlabored, Respiratory pattern is regular, symmetrical. GI: Reports lower abdominal pain, upper abdominal pain, intolerance of fluids, intolerance of food, nausea. : No signs and/or symptoms were reported regarding the genitourinary system. EENT: No signs and/or symptoms were reported regarding the EENT system. Derm: No signs and/or symptoms reported regarding the dermatologic system. Musculoskeletal: Range of motion: intact in all extremities. 11:00 Reassessment: Patient appears in no apparent distress at this time. No changes from tw2 previously documented assessment. Patient and/or family updated on plan of care and expected duration. Pain level reassessed. Patient is alert, oriented x 3, equal unlabored respirations, skin warm/dry/pink. 12:00 Reassessment: Patient appears in no apparent distress at this time. No changes from tw2 previously documented assessment. Patient and/or family updated on plan of care and expected duration. Pain level reassessed. Patient is alert, oriented x 3, equal unlabored respirations, skin warm/dry/pink. 13:11 Reassessment: Patient appears in no apparent distress at this time. Patient and/or tw2 family updated on plan of care and expected duration. Pain level reassessed. Patient is alert, oriented x 3, equal unlabored respirations, skin warm/dry/pink. Patient states feeling better. 14:00 Reassessment: Patient appears in no apparent distress at this time. No changes from tw2 previously documented assessment. Patient and/or family updated on plan of care and expected duration. Pain level reassessed. Patient is alert, oriented x 3, equal unlabored respirations, skin warm/dry/pink. 15:00 Reassessment: Patient appears in no apparent distress at this time. No changes from tw2 previously documented assessment. Patient and/or family updated on plan of care and expected duration. Pain level reassessed. Patient is alert, oriented x 3, equal unlabored respirations, skin warm/dry/pink. 16:00 Reassessment: Patient appears in no apparent distress at this time. No changes from tw2 previously documented assessment. Patient and/or family updated on plan of care and expected duration. Pain level reassessed. Patient is alert, oriented x 3, equal unlabored respirations, skin warm/dry/pink. 17:09 Reassessment: Patient appears in no apparent distress at this time. No changes from tw2 previously documented assessment. Patient and/or family updated on plan of care and expected duration. Pain level reassessed. Patient is alert, oriented x 3, equal unlabored respirations, skin warm/dry/pink. Vital Signs: 10:13 BP 110 / 95; Pulse 141; Resp 18 S; Temp 97.9(TE); Pulse Ox 98% on R/A; Weight 72.57 kg ca1 (R); Height 5 ft. 11 in. (180.34 cm) (R); Pain 5/10; 11:00 BP 136 / 84; Pulse 104; Resp 20; Pulse Ox 99% on R/A; tw2 12:00 BP 128 / 83; Pulse 105; Resp 18; Pulse Ox 97% on R/A; tw2 13:00 BP 130 / 77; Pulse 105; Resp 18; Pulse Ox 97% on R/A; tw2 14:00 BP 132 / 86; Pulse 107; Resp 19; Pulse Ox 99% on R/A; tw2 15:00 BP 127 / 96; Pulse 107; Resp 19; Pulse Ox 99% on R/A; tw2 10:13 Body Mass Index 22.32 (72.57 kg, 180.34 cm) ca1 ED Course: 09:50 Patient arrived in ED. am2 10:16 Triage completed. ca1 10:17 Koby Pierson PA is PHCP. jr8 10:17 Arm band placed on right wrist. ca1 10:18 Leonel Nichols MD is Attending Physician. jr8 10:18 Jael Hendricks RN is Primary Nurse. tw2 10:19 Bed in low position. Call light in reach. Side rails up X2. nuclear monitoring technician on. Pulse tw2 ox on. NIBP on. seizure precations. 10:20 Inserted saline lock: 20 gauge in right forearm, using aseptic technique. Blood tw2 collected. 11:19 EKG done, by ED staff, reviewed by Koby CARDENAS. em1 17:06 Awaiting: completion of IV fluids PRIOR to discharge. tw2 17:27 No provider procedures requiring assistance completed. IV discontinued, intact, tw2 bleeding controlled, No redness/swelling at site. Pressure dressing applied. Administered Medications: 10:40 Drug: NS 0.9% 1000 ml Route: IV; Rate: 1000 ml; Site: right forearm; tw2 12:34 Follow up: Response: No adverse reaction; IV Status: Completed infusion; IV Intake: tw2 1000ml 10:40 Drug: Zofran (Ondansetron) 4 mg Route: IVP; Site: right forearm; tw2 10:55 Follow up: Response: No adverse reaction; Nausea is decreased tw2 10:54 Drug: Ativan 2 mg Route: IVP; Site: right forearm; tw2 12:34 Follow up: Response: No adverse reaction; Anxiety unchanged tw2 12:32 Drug: Ativan 2 mg Route: IVP; Site: right forearm; tw2 13:00 Follow up: Response: No adverse reaction; Anxiety decreased tw2 12:33 Drug: Zofran (Ondansetron) 4 mg Route: IVP; Site: right forearm; tw2 13:00 Follow up: Response: No adverse reaction; Nausea is decreased tw2 12:45 Drug: Banana Bag - (NS 0.9% 1000 ml, foLIC Acid 1 mg, Thiamine 100 mg, Multivitamin 1 tw2 amp) Route: IV; Rate: calculated rate; Site: right forearm; 16:01 Follow up: Rate change 500 ml/hr tw2 Intake: 12:34 IV: 1000ml; Total: 1000ml. tw2 Outcome: 16:18 Discharge ordered by MD. gil 17:27 Patient left the ED. tw2 17:27 Discharged to home ambulatory. tw2 17:27 Condition: stable 17:27 Discharge instructions given to patient, Instructed on discharge instructions, follow up and referral plans. Demonstrated understanding of instructions, follow-up care. Signatures: Beau Nava em1 Koby Pierson PA PA jr8 Jael Hendricks RN RN tw2 Lyn Zepeda am2 Doris Guadarrama RN RN ca1
[2020-12-25] MEDS ORDERED: ONDANSETRON 4 MG (ODT) TAB ONE (17:32)
[2020-12-25 17:52] VITALS: TEMP 97.9
[2020-12-25 17:55] VITALS: O2SAT 99
[2020-12-25 17:57] VITALS: BP 127/96
== END 2020-12-25 17:27 | disposition home or self-care (01) ==
LOC: ER 09:50
DX: F10.239 Alcohol dependence with withdrawal, unspecified (principal); F17.210 Nicotine dependence, cigarettes, uncomplicated; Z88.2 Allergy status to sulfonamides
CPT/HCPCS: 36415; 80048; 80076; 80307; 80320; 80329; 81003; 85025; 85610; 85730; 93005; 96361; 96374; 96375; 99284; J2405; J3411; J7030

== ENCOUNTER 2021-01-29 18:03 | Emergency (ER) | payer SELFPAY ==
--- OUTSIDE RECORDS SUMMARY | 2021-01-29 18:06 | XMS REPORT | Continuity of Care Document ---
:1990 Author Organization [facility] t Address [address] [place] [address] Care Team Providers Name Role Phone Wilton PEARCE Attending Clinician Maya Belcher Attending Clinician Karen Lee Attending Clinician Singer PEREZ Attending Clinician Problems This patient has no known problems. Allergies, Adverse Reactions, Alerts This patient has no known allergies or adverse reactions. Medications This patient has no known medications. Procedures This patient has no known procedures. Encounters Start End Encounter Admission Attending Care Care Encounter Source Date/Time Date/Time Type Type Clinicians Facility Department ID 2021-01-15 2021-01-15 [place] [id number] 11:26:00 14:29:00 Jovi Renae [id number] [place] [id number] [place] [id number] 2021-01-14 2021-01-14 Emergency Symone Woods [facility] [id number] 17:42:00 22:07:00 Maya Renae [id number] [place] [id number] [place] [id number] 2020-12-28 2020-12-29 Emergency Yoselyn [facility] [id number] 18:36:00 00:13:00 vEan Renae [id number] [place] [id number] [place] [id number] 2020-10-22 2020[facility]10-[facility] [id number] 14:16:00 16:04:00 Zen Reane [id number] [place] [id number] [place] [id number] Results This patient has no known results.
[2021-01-29 21:25] LABS: Urine Blood Trace-lysed (Negative); Urine Glucose Negative (Negative); Urine Protein Negative (Negative)
[2021-01-29 21:29] LABS: Absolute Lymphocytes (CBC) 1.9 K/uL (0.7-4.9); Basophils % 0.8 % (0-1.3); Hematocrit 44.7 % (39.6-49.0); Lymphocytes % 22.2 % (15.3-44.8); MPV 7.8 fL (7.6-11.3)
[2021-01-29] MEDS ORDERED: DIAZEPAM 10 MG/2 ML INJ SYRINGE ONE (21:30)
[2021-01-29] MEDS ORDERED: NA CHLORIDE 0.9% 1,000 ML ONE (21:30)
[2021-01-29] MEDS ORDERED: ONDANSETRON 4 MG/2 ML VIAL ONE (21:30)
[2021-01-29 21:34] LABS: Protime INR 0.81
[2021-01-29 21:43] LABS: Barbiturates NEGATIVE (NEGATIVE); Benzodiazepines NEGATIVE (NEGATIVE); Cocaine NEGATIVE (NEGATIVE); METHAMPHETAM NEGATIVE (NEGATIVE); Methadone NEGATIVE (NEGATIVE); Opiates NEGATIVE (NEGATIVE); Phencyclidine NEGATIVE (NEGATIVE); THC Cannibis NEGATIVE (NEGATIVE)
[2021-01-29 21:43] LABS: ALT/SGPT 64 U/L (12-78); AST/SGOT 76 U/L (15-37); Albumin 4.7 g/dL (3.4-5.0); Alkaline Phosphatase 92 U/L (45-117); BUN Blood Urea Nitrogen 8 mg/dL (7-18); Bicarbonate 25 mmol/L (21-32); Bilirubin Direct 0.2 mg/dL (0-0.2); Bilirubin Total 0.9 mg/dL (0.2-1.0); Glucose Level 68 mg/dL (74-106); Potassium 4.7 mmol/L (3.5-5.1); Protein, Total 9.3 g/dL (6.4-8.2); Sodium Level 129 mmol/L (136-145)
[2021-01-29] MEDS ORDERED: METOCLOPRAMIDE 10 MG/2mL INJ ONE (23:55)
[2021-01-29] MEDS ORDERED: NA CHLORIDE 0.9% 250 ML ONE (23:56)
[2021-01-29] MEDS ORDERED: FAMOTIDINE 20 MG/2 ML VIAL IV ONE (23:56)
[2021-01-29] MEDS ORDERED: DIPHENHYDRAMINE 50 MG/ML VIAL ONE (23:56)
[2021-01-30] MEDS ORDERED: MAGNES/ALUMIN/SIMET 30ML UCUP ONE (00:47)
[2021-01-30] MEDS ORDERED: LIDOCAINE VISCOUS 2% SOLN 15 ML UDC ONE (00:47)
--- NOTE | 2021-01-30 00:58 | ER ---
Nurse's Notes [facility] Name: Philip Saldaña Age: 30 yrs Sex: Male : 1990 Arrival Date: 01/29/2021 Time: 18:07 Bed 14 Private MD: Diagnosis: Vomiting;Alcohol abuse Presentation: 01/29 18:19 Chief complaint: Binge drinking vodka and whiskey for 4 days, last drink was 2 hours hb [employer], c/o epigastric pain 6/10. Coronavirus screen: At this time, the client does not indicate any symptoms associated with coronavirus-19. Ebola Screen: No symptoms or risks identified at this time. Risk Assessment: Do you want to hurt yourself or someone else? Patient reports no desire to harm self or others. Onset of symptoms was January 29, 2021. 18:19 Method Of Arrival: Ambulatory hb 18:19 Acuity: KASSIDY 2 hb 20:23 Initial Sepsis Screen: Does the patient meet any 2 criteria? HR > 90 bpm. No. Patient's sf initial sepsis screen is negative. Does the patient have a suspected source of infection? Yes: Acute abdominal pain. Historical: - Allergies: 18:21 Sulfa (Sulfonamide Antibiotics); hb - Home Meds: 20:21 multivitamin oral tab daily [Active]; sf - PMHx: 18:21 Alcoholism; Anxiety; Depression; GERD; HYPOGLYCEMIA; hb 20:21 hiatal hernia; sf - PSHx: 18:21 None; hb - Immunization history:: Adult Immunizations unknown. - Social history:: Smoking status: Patient reports the use of cigarette tobacco products, smokes one pack cigarettes per day. Patient uses alcohol, patient/guardian reports recent binge of alcohol consumption. Patient/guardian denies using street drugs, IV drugs. Screenin:12 Abuse screen: Denies threats or abuse. Denies injuries from another. Nutritional sf screening: No deficits noted. Tuberculosis screening: No symptoms or risk factors identified. Fall Risk None identified. Total Harmon Fall Scale indicates No Risk (0-24 pts). Assessment: 20:15 General: Appears in no apparent distress. uncomfortable, Behavior is calm, cooperative. sf Pain: Complains of pain in abdomen Pain currently is 6 out of 10 on a pain scale. Neuro: Level of Consciousness is awake, alert, Oriented to person, place, time, situation. Cardiovascular: Denies chest pain, diaphoresis, palpitations, shortness of breath, Patient's skin is warm and dry. Respiratory: Airway is patent Respiratory effort is even, unlabored, Respiratory pattern is regular, symmetrical. GI: Abdomen is non-distended, Reports lower abdominal pain, upper abdominal pain, nausea, vomiting, Patient currently denies constipation, diarrhea, rectal bleeding. : No deficits noted. No signs and/or symptoms were reported regarding the genitourinary system. Derm: No deficits noted. No signs and/or symptoms reported regarding the dermatologic system. 20:15 Musculoskeletal: No deficits noted. No signs and/or symptoms reported regarding the sf musculoskeletal system. 23:13 Reassessment: Patient appears in no apparent distress at this time. Patient and/or sf family updated on plan of care and expected duration. Pain level reassessed. Patient is alert, oriented x 3, equal unlabored respirations, skin warm/dry/pink. Patient states feeling better. Patient states symptoms have improved. 01/30 00:34 Reassessment: Patient appears in no apparent distress at this time. Patient and/or sf family updated on plan of care and expected duration. Pain level reassessed. Patient is alert, oriented x 3, equal unlabored respirations, skin warm/dry/pink. Patient states feeling better. Patient states symptoms have improved. Vital Signs: 01/29 18:19 BP 148 / 88; Pulse 92; Resp 16; Temp 97.4; Pulse Ox 100% on R/A; Pain 6/10; hb 20:12 BP 127 / 82; Pulse 90; Resp 18; Pulse Ox 100% ; sf 20:30 BP 117 / 77; Pulse 88; Resp 18; Pulse Ox 100% ; sf 21:30 BP 108 / 83; Pulse 87; Resp 18; Pulse Ox 100% ; sf 22:00 BP 118 / 73; Pulse 93; Resp 16; Pulse Ox 100% ; sf 22:30 BP 115 / 72; Pulse 89; Resp 16; Pulse Ox 100% ; sf 23:00 BP 116 / 72; Pulse 99; Resp 16; Pulse Ox 99% ; sf 01/30 00:30 BP 121 / 83; Pulse 97; Resp 16; Pulse Ox 99% ; sf 01:00 BP 109 / 71; Pulse 84; Resp 16; Pulse Ox 98% ; ED Course: 01/29 18:07 Patient arrived in ED. mr 18:20 Triage completed. hb 18:21 Arm band placed on. hb 18:22 Adalberto Dill [facility] is [facility] 18:22 Fco García MD is Attending Physician. [facility] 20:12 Patient has correct armband on for positive identification. Placed in gown. Bed in low sf position. Call light in reach. Side rails up X 1. Pulse ox on. NIBP on. Door closed. Noise minimized. Visitors limited. Lights dimmed. Verbal reassurance given. 20:18 Mark Ambrose, CRIS is Primary Nurse. sf 21:00 Initial lab(s) drawn, by me, sent to lab. Inserted saline lock: 20 gauge in right sf forearm, using aseptic technique. Blood collected. 21:15 Urine collected: clean catch specimen, clear. sf 21:38 EKG done, by ED staff, reviewed by Adalberto CARDENAS. sf 01/30 01:12 No provider procedures requiring assistance completed. IV discontinued, intact, sf bleeding controlled, No redness/swelling at site. Pressure dressing applied. Administered Medications: 01/29 21:12 Drug: NS 0.9% 1000 ml Route: IV; Rate: 1 bolus; Site: right forearm; sf 23:00 Follow up: IV Status: Completed infusion; IV Intake: 1000ml sf 21:14 Drug: Zofran (Ondansetron) 4 mg Route: IVP; Site: right forearm; sf 23:00 Follow up: Response: No adverse reaction sf 21:15 Drug: Valium (diazepam) 5 mg Route: IVP; Site: right forearm; sf 23:00 Follow up: Response: No adverse reaction sf 23:44 Drug: Pepcid (famotidine) 20 mg Route: IVP; Site: right forearm; sf 01/30 00:34 Follow up: Response: No adverse reaction sf 01/29 23:44 Drug: diphenhydrAMINE 12.5 mg Route: IVP; Site: right forearm; sf 01/30 00:34 Follow up: Response: No adverse reaction 01/29 23:45 Drug: Reglan (metoCLOPramide) 20 mg {Note: in 250 ml NS.} Route: IVP; Site: right sf forearm; 01/30 00:34 Follow up: Response: No adverse reaction sf 00:34 Drug: GI Cocktail without - (Maalox Suspension 30 ml, Lidocaine Liquid 2 % 15 sf ml) Route: PO; 01:14 Follow up: Response: No adverse reaction sf Intake: 01/29 23:00 IV: 1000ml; Total: 1000ml. sf Output: 01/30 01:13 Urine: 1350ml (Voided); Total: 1350ml. sf Outcome: 00:57 Discharge ordered by MD. mei 01:13 Discharged to home ambulatory. sf 01:13 Condition: stable 01:13 Discharge instructions given to patient, Instructed on discharge instructions, follow up and referral plans. medication usage, Demonstrated understanding of instructions, follow-up care, medications, Prescriptions given X 3. 01:13 Patient left the ED. sf Signatures: Adalberto Dill PA PA jmm Rivera, Mary Josi Diana, RN RN Mark Ambrose RN RN sf
--- NOTE | 2021-01-30 00:58 | EDPHYS ---
Physician Documentation [facility] Name: Philip Saldaña Age: 30 yrs Sex: Male : 1990 Arrival Date: 01/29/2021 Time: 18:07 Bed 14 Private MD: ED Physician Fco García HPI: 01/29 20:55 This 30 yrs old Male presents to ER via Ambulatory with complaints of Alcohol jmm Withdrawal. 20:55 This is a 30 year old male with a history of alcoholism, anxiety, depression, that jmm presents to the ED with complaints of nausea, weakness. Patient states he believes he is withdrawing from ETOH most recently drank this morning. . Historical: - Allergies: 18:21 Sulfa (Sulfonamide Antibiotics); hb - Home Meds: 20:21 multivitamin oral tab daily [Active]; sf - PMHx: 18:21 Alcoholism; Anxiety; Depression; GERD; HYPOGLYCEMIA; hb 20:21 hiatal hernia; sf - PSHx: 18:21 None; hb - Immunization history:: Adult Immunizations unknown. - Social history:: Smoking status: Patient reports the use of cigarette tobacco products, smokes one pack cigarettes per day. Patient uses alcohol, patient/guardian reports recent binge of alcohol consumption. Patient/guardian denies using street drugs, IV drugs. ROS: 20:55 Cardiovascular: Negative for chest pain, palpitations, and edema, Respiratory: Negative jmm for shortness of breath, cough, wheezing, and pleuritic chest pain. 20:55 Constitutional: Positive for fatigue. 20:55 Abdomen/GI: Positive for nausea. 20:55 All other systems are negative. Exam: 20:55 Head/Face: atraumatic. Eyes: EOMI, no conjunctival erythema appreciated ENT: Moist jmm Mucus Membranes Neck: Trachea midline, Supple Chest/axilla: Normal chest wall appearance and motion. Cardiovascular: Regular rate and rhythm. No edema appreciated Respiratory: Normal respirations, no respiratory distress appreciated Abdomen/GI: Non distended, soft Back: Normal ROM Skin: General appearance color normal 20:55 Constitutional: The patient appears in no acute distress, alert, awake, anxious. 20:55 Musculoskeletal/extremity: ROM: intact in all extremities. 20:55 Skin: Appearance: Color: normal in color. 20:55 Neuro: Motor: is normal. 20:55 Psych: Behavior/mood is cooperative, anxious, depressed. Vital Signs: 18:19 BP 148 / 88; Pulse 92; Resp 16; Temp 97.4; Pulse Ox 100% on R/A; Pain 6/10; hb 20:12 BP 127 / 82; Pulse 90; Resp 18; Pulse Ox 100% ; sf 20:30 BP 117 / 77; Pulse 88; Resp 18; Pulse Ox 100% ; sf 21:30 BP 108 / 83; Pulse 87; Resp 18; Pulse Ox 100% ; sf 22:00 BP 118 / 73; Pulse 93; Resp 16; Pulse Ox 100% ; sf 22:30 BP 115 / 72; Pulse 89; Resp 16; Pulse Ox 100% ; sf 23:00 BP 116 / 72; Pulse 99; Resp 16; Pulse Ox 99% ; sf 01/30 00:30 BP 121 / 83; Pulse 97; Resp 16; Pulse Ox 99% ; sf 01:00 BP 109 / 71; Pulse 84; Resp 16; Pulse Ox 98% ; sf MDM: 01/29 20:50 Patient medically screened. [facility] 01/30 00:56 Data reviewed: vital signs, nurses notes. Counseling: I had a detailed discussion with sigifredo the patient and/or guardian regarding: the historical points, exam findings, and any diagnostic results supporting the discharge/admit diagnosis, lab results, the need for outpatient follow up, to return to the emergency department if symptoms worsen or persist or if there are any questions or concerns that arise at home. ED course: Patient is alert and non toxic in appearance. Patient states feeling much better. Patient is advised to follow up with pcp and otherwise given strict return precautions. Patient understood and agrees with the plan of care. . 01/29 20:55 Order name: Acetaminophen; Complete Time: 21:45 [facility] 01/29 20:55 Order name: Basic Metabolic Panel; Complete Time: 21:45 [facility] 01/29 20:55 Order name: CBC with Diff; Complete Time: 21:39 [facility] 01/29 20:55 Order name: ETOH Level; Complete Time: 21:39 [facility] 01/29 20:55 Order name: Hepatic Function; Complete Time: 21:45 [facility] 01/29 20:55 Order name: PT-INR; Complete Time: 21:39 [facility] 01/29 20:55 Order name: Ptt, Activated; Complete Time: 21:39 [facility] 01/29 20:55 Order name: Salicylate; Complete Time: 21:45 [facility] 01/29 20:55 Order name: Urine Drug Screen; Complete Time: 21:45 [facility] 01/29 21:25 Order name: Urine Dipstick-Ancillary; Complete Time: 21:28 [facility] 01/29 20:55 Order name: EKG; Complete Time: 20:55 [facility] 01/29 20:55 Order name: EKG - Nurse/Tech; Complete Time: 21:41 [facility] 01/29 20:55 Order name: IV Saline Lock; Complete Time: 21:08 [facility] 01/29 20:55 Order name: Labs collected and sent; Complete Time: 21:08 [facility] 01/29 20:55 Order name: Suicide Screening ([place]); Complete Time: 21:08 [facility] 01/29 20:55 Order name: Urine Dipstick-Ancillary (obtain specimen); Complete Time: 21:18 [facility] Administered Medications: 01/29 21:12 Drug: NS 0.9% 1000 ml Route: IV; Rate: 1 bolus; Site: right forearm; sf 23:00 Follow up: IV Status: Completed infusion; IV Intake: 1000ml sf 21:14 Drug: Zofran (Ondansetron) 4 mg Route: IVP; Site: right forearm; sf 23:00 Follow up: Response: No adverse reaction sf 21:15 Drug: Valium (diazepam) 5 mg Route: IVP; Site: right forearm; sf 23:00 Follow up: Response: No adverse reaction sf 23:44 Drug: Pepcid (famotidine) 20 mg Route: IVP; Site: right forearm; sf 01/30 00:34 Follow up: Response: No adverse reaction sf 01/29 23:44 Drug: diphenhydrAMINE 12.5 mg Route: IVP; Site: right forearm; sf 01/30 00:34 Follow up: Response: No adverse reaction 01/29 23:45 Drug: Reglan (metoCLOPramide) 20 mg {Note: in 250 ml NS.} Route: IVP; Site: right sf forearm; 01/30 00:34 Follow up: Response: No adverse reaction sf 00:34 Drug: GI Cocktail without - (Maalox Suspension 30 ml, Lidocaine Liquid 2 % 15 sf ml) Route: PO; 01:14 Follow up: Response: No adverse reaction sf Disposition: 01/30/21 00:57 Discharged to Home. Impression: Vomiting, Alcohol abuse. - Condition is Stable. - Discharge Instructions: Nausea and Vomiting, Adult. - Prescriptions for Carafate 1 gram Oral Tablet - take 1 tablet by ORAL route 4 times per day take on an empty stomach, beginning on waking and last dose at bedtime; 100 tablet. Pepcid 20 mg Oral Tablet - take 1 tablet by ORAL route every 12 hours for 10 days; 20 tablet. Reglan 10 mg Oral Tablet - take 1 tablet by ORAL route every 6 hours . take 30 minutes before meals and at bedtime; 100 tablet. - Medication Reconciliation Form, Thank You Letter, Antibiotic Education, Prescription Opioid Use form. - Follow up: Private Physician; When: 2 - 3 days; Reason: Recheck today's complaints, Continuance of care, Re-evaluation by your physician. Addendum: 01/31/2021 08:11 Co-signature as Attending Physician, Fco García MD I agree with the assessment and c huang plan of care. Signatures: Dispatcher [employer] EDFco Choe MD MD cha Mickail, Joel, PA PA jmm Baxter, Heather, CRIS RN Mark Ambrose RN RN sf Corrections: (The following items were deleted from the chart) 01/30 01:13 00:57 01/30/2021 00:57 Discharged to Home. Impression: Vomiting; Alcohol abuse. sf Condition is Stable. Forms are Medication Reconciliation Form, Thank You Letter, Antibiotic Education, Prescription Opioid Use. Follow up: Private Physician; When: 2 - 3 days; Reason: Recheck today's complaints, Continuance of care, Re-evaluation by your physician. sigifredo
[2021-01-30 01:23] VITALS: TEMP 97.4
[2021-01-30 01:34] VITALS: BP 109/71; O2SAT 98
--- NOTE | 2021-01-30 07:56 | EKG ---
Test Date: 2021-01-29 Test Time: 21:38:01 Area Coordinator: GEOVANNI MEASUREMENT RESULTS: Intervals: Rate: 83 [place]: 138 QRSD: 96 QT: 360 QTc: 423 [place]: P: 72 [place]: 138 QRS: 80 T: 64 INTERPRETIVE STATEMENTS: Normal sinus rhythm Early repolarization Normal ECG Compared to ECG 12/25/2020 09:52:13 Early repolarization now present Sinus tachycardia no longer present Right-axis deviation no longer present Electronically Signed On 01-30-21 07:56:07 CDT by Peter Banegas
== END 2021-01-30 01:13 | disposition home or self-care (01) ==
LOC: ER 18:03
DX: F10.20 Alcohol dependence, uncomplicated (principal); F17.210 Nicotine dependence, cigarettes, uncomplicated; Z88.2 Allergy status to sulfonamides
CPT/HCPCS: 36415; 80048; 80076; 80307; 80320; 80329; 81003; 85025; 85610; 85730; 93005; 96361; 96374; 96375; 99284; J1200; J2405; J2765; J3360; J7030; J7050

== ENCOUNTER 2021-02-18 18:19 | Emergency (ER) | payer SELFPAY ==
--- OUTSIDE RECORDS SUMMARY | 2021-02-18 18:22 | XMS REPORT | Continuity of Care Document ---
:1990 Author Organization [facility] t Address [address] [place] [address] Care Team Providers Name Role Phone [place] [...] Clinicians Facility Department ID 2021-01-15 2021-01-15 [place] [id number] 11:26:00 14:29:00 Jovi Renae [id number] [place] [id number] [place] [address] [id number] 2021-01-14 2021-01-14 Emergency Symone Woods [facility] [id number] 17:42:00 22:07:00 Maya Renae [id number] [place] [id number] [place] [id number] 2020-12-28 2020-12-29 Emergency Yoselyn [facility] [id number] 18:36:00 00:13:00 Evan Renae [id number] [place] [id number] [place] [id number] 2020-10-22 2020-10-22 [facility] [id number] 14:16:00 16:04:00 Zen Renae [id number] [place] [id number] [place] [id number] Results This patient has no known results.
[2021-02-18 19:53] LABS: Absolute Lymphocytes (CBC) 2.1 K/uL (0.7-4.9); Basophils % 0.7 % (0-1.3); Hematocrit 40.3 % (39.6-49.0); Lymphocytes % 30.2 % (15.3-44.8); MPV 7.6 fL (7.6-11.3); RBC Red Blood Cell Count 4.18 M/uL (4.33-5.43)
[2021-02-18 20:00] LABS: ALT/SGPT 37 U/L (12-78); AST/SGOT 30 U/L (15-37); Albumin 3.7 g/dL (3.4-5.0); Alkaline Phosphatase 92 U/L (45-117); BUN Blood Urea Nitrogen 7 mg/dL (7-18); Bicarbonate 28 mmol/L (21-32); Bilirubin Direct 0.2 mg/dL (0-0.2); Bilirubin Total 0.4 mg/dL (0.2-1.0); Glucose Level 85 mg/dL (74-106); Lipase 156 U/L (73-393); Potassium 3.4 mmol/L (3.5-5.1); Protein, Total 7.6 g/dL (6.4-8.2); Sodium Level 136 mmol/L (136-145)
[2021-02-18] MEDS ORDERED: MAGNES/ALUMIN/SIMET 30ML UCUP ONE (20:04)
[2021-02-18] MEDS ORDERED: THIAMINE 200 MG/2 ML INJ ONE (20:04)
[2021-02-18] MEDS ORDERED: DIAZEPAM 10 MG/2 ML INJ SYRINGE ONE (20:04)
[2021-02-18] MEDS ORDERED: LIDOCAINE VISCOUS 2% SOLN 15 ML UDC ONE (20:05)
[2021-02-18] MEDS ORDERED: NA CHLORIDE 0.9% 2,000 ML ONE (20:05)
[2021-02-18] MEDS ORDERED: FOLIC ACID 5 MG/ML VIAL ONE (20:07)
--- NOTE | 2021-02-18 20:44 | RAD REPORT ---
EXAM DESCRIPTION: CT - Soft Tissue Neck W/Contr CLINICAL HISTORY: vomiting, neck pain and swelling Pain and swelling COMPARISON: No comparisons TECHNIQUE All CT scans are performed using dose optimization technique as appropriate and may includ e automated exposure control or mA/KV adjustment according to patient size. FINDINGS: Nasopharyngeal tissues are normal in appearance. Fossa Rosenmller are normal. Parapharyngeal fat triangles are symmetric. Tongue base structures are normal. Epiglottis and aryepiglottic folds are normal. Piriform sinuses are well aerated. The vocal cords are normal in appearance. Salivary glands are normal in appearance. Upper lung del toro are clear. Included intracranial contents are unremarkable. IMPRESSION: No acute abnormality is detected.
--- NOTE | 2021-02-18 22:19 | ER ---
Nurse's Notes [facility] Name: Philip Saldaña Age: 30 yrs Sex: Male : 1990 Arrival Date: 02/18/2021 Time: 18:22 Bed 25 Private MD: Diagnosis: Esophagitis, unspecified;Alcohol abuse with intoxication Presentation: 02/18 18:46 Chief complaint: Patient states: Was discharged from a hospital in [place] 2 days jl7 ago, was there for alcohol withdrawal, drank whiskey and vodka today. Reports having a sore throat, feeling weak and nauseous. Coronavirus screen: Client denies travel out of the [place] in the last 14 days. At this time, the client does not indicate any symptoms associated with coronavirus-19. Ebola Screen: No symptoms or risks identified at this time. Initial Sepsis Screen: Does the patient meet any 2 criteria? No. Patient's initial sepsis screen is negative. Does the patient have a suspected source of infection? No. Patient's initial sepsis screen is negative. Risk Assessment: Do you want to hurt yourself or someone else? Patient reports no desire to harm self or others. Onset of symptoms was February 18, 2021. Care prior to arrival: None. Transition of care: patient was not received from another setting of care. 18:46 Method Of Arrival: Ambulatory [facility] 18:46 Acuity: KASSIDY 3 jl7 Triage Assessment: 18:53 General: Appears in no apparent distress. uncomfortable, Behavior is cooperative, jl7 anxious. Pain: Complains of pain in sore throat Pain currently is 6 out of 10 on a pain scale. Historical: - Allergies: 18:53 Sulfa (Sulfonamide Antibiotics); jl7 - Home Meds: 18:53 multivitamin Oral tab daily [Active]; jl7 - PMHx: 18:53 Alcoholism; Anxiety; Depression; GERD; hiatal hernia; HYPOGLYCEMIA; jl7 - PSHx: 18:53 None; jl7 - Immunization history:: Adult Immunizations not up to date. - Social history:: Smoking status: Patient reports the use of cigarette tobacco products, smokes one pack cigarettes per day. Patient uses alcohol, "Benders, 3-4 days at a time". - Family history:: not pertinent. - Hospitalizations: : No recent hospitalization is reported. Screenin:34 Abuse screen: Denies threats or abuse. Denies injuries from another. Nutritional ak2 screening: No deficits noted. Tuberculosis screening: No symptoms or risk factors identified. Fall Risk None identified. Vital Signs: 18:46 BP 125 / 97; Pulse 121; Resp 19 S; Temp 97.6(TE); Pulse Ox 98% on R/A; Weight 68.04 kg jl7 (R); Height 5 ft. 11 in. (180.34 cm); 20:45 BP 121 / 64; Pulse 84; Resp 16; Pulse Ox 99% ; ak2 22:34 BP 114 / 67; Pulse 81; Resp 16; Pulse Ox 100% ; ak2 18:46 Body Mass Index 20.92 (68.04 kg, 180.34 cm) jl7 ED Course: 18:22 Patient arrived in ED. mr 18:53 Triage completed. jl7 18:53 Arm band placed on right wrist. jl7 19:13 Akhil Harris MD is Attending Physician. rn 19:35 Andrea Young is Primary Nurse. ak2 19:38 Initial lab(s) drawn, by sd, sent to lab. Inserted saline lock: 20 gauge in left ca1 antecubital area, using aseptic technique. Blood collected. 20:25 CT Soft Tissue Neck W/contr In Process Unspecified. EDMS 22:34 No apparent distress. ak2 22:34 Patient has correct armband on for positive identification. ak2 22:34 No provider procedures requiring assistance completed. IV discontinued. ak2 Administered Medications: 19:56 Drug: Banana Bag - (NS 0.9% 1000 ml, foLIC Acid 1 mg, Thiamine 100 mg, Multivitamin 1 ak2 amp) Route: IV; Rate: calculated rate; Site: left antecubital; 19:56 Drug: Valium (diazepam) 5 mg Route: IVP; Site: right antecubital; ak2 19:56 Drug: GI Cocktail without - (Maalox Suspension 30 ml, Lidocaine Liquid 2 % 15 ak2 ml) Route: PO; 19:57 Drug: NS 0.9% 1000 ml Route: IV; Rate: 1000 ml; Site: left antecubital; ak2 Outcome: 22:18 Discharge ordered by . rn 22:34 Discharged to home ambulatory. ak2 22:34 Condition: good 22:34 Discharge instructions given to patient. 22:35 Patient left the ED. [email or web address] Signatures: Dispatcher [employer] NATASHA MaverickJeannie Harris, MD MD amy Landaverde Jahala RN RN jl7 Doris Guadarrama RN RN ca1 Andrea Young
--- NOTE | 2021-02-18 22:19 | EDPHYS ---
Physician Documentation [facility] Name: Philip Saldaña Age: 30 yrs Sex: Male : 1990 Arrival Date: 02/18/2021 Time: 18:22 Bed 25 Private MD: ED Physician Akhil Harris HPI: 02/18 19:44 This 30 yrs old Male presents to ER via Ambulatory with complaints of rn dehdyration, neck pain. 19:44 The patient or guardian complains of pain, that is acute. The symptoms are located rn diffusely. Onset: The symptoms/episode began/occurred 2 day(s) ago. Context: The problem was sustained at home, The neck injury/problem resulted from from unknown cause. Associated signs and symptoms: Pertinent positives: nausea, vomiting, Pertinent negatives: fever, headache, bladder incontinence, bowel incontinence. Associated signs and symptoms: Pertinent positives:. The pain does not radiate. Modifying factors: The symptoms are alleviated by nothing. the symptoms are aggravated by nothing. Severity of symptoms: At their worst the symptoms were mild, in the emergency department the symptoms are unchanged. The patient has experienced similar episodes in the past. The patient has not recently seen a physician. Reports went on recent ETOH "ludwig", drinking heavily for last 4 days, reports has this every week or 2, drinking vodka and rum, wasn't eating anything, felt mild epigastric abd pain and vomiting, no blood, but now neck hurts, subjective swelling of neck. No blood in stool. Reports came for neck pain.. Historical: - Allergies: 18:53 Sulfa (Sulfonamide Antibiotics); jl7 - Home Meds: 18:53 multivitamin Oral tab daily [Active]; jl7 - PMHx: 18:53 Alcoholism; Anxiety; Depression; GERD; hiatal hernia; HYPOGLYCEMIA; jl7 - PSHx: 18:53 None; jl7 - Immunization history:: Adult Immunizations not up to date. - Social history:: Smoking status: Patient reports the use of cigarette tobacco products, smokes one pack cigarettes per day. Patient uses alcohol, "Benders, 3-4 days at a time". - Family history:: not pertinent. - Hospitalizations: : No recent hospitalization is reported. ROS: 19:44 Constitutional: Negative for fever, chills, and weight loss, Eyes: Negative for injury, rn pain, redness, and discharge, Neck: + neck pain and subkective swelling Cardiovascular: Negative for chest pain, palpitations, and edema, Respiratory: Negative for shortness of breath, cough, wheezing, and pleuritic chest pain, Abdomen/GI: Negative for abdominal pain currently, + nausea and vomiting Back: Negative for injury and pain, : Negative for injury, bleeding, discharge, and swelling, MS/Extremity: Negative for injury and deformity, Skin: Negative for injury, rash, and discoloration, Neuro: Negative for headache, numbness, tingling, and seizure, Psych: Negative for depression, anxiety, suicide ideation, homicidal ideation, and hallucinations. Exam: 19:44 Constitutional: This is a well developed, well nourished patient who is awake, alert, rn and in no acute distress. Head/Face: Normocephalic, atraumatic. Eyes: Pupils equal round and reactive to light, extra-ocular motions intact. Lids and lashes normal. Conjunctiva and sclera are non-icteric and not injected. Cornea within normal limits. Periorbital areas with no swelling, redness, or edema. ENT: dry MM, no oral swelling, no stridor Neck: Trachea midline, no masses palpated, and no cervical lymphadenopathy. Supple, full range of motion without nuchal rigidity, or vertebral point tenderness. No Meningismus. No crepitus Cardiovascular: Tachycardic, regular Respiratory: No increased work of breathing, no retractions or nasal flaring. Abdomen/GI: soft, non-tender Skin: Warm, dry MS/ Extremity: Pulses equal, no cyanosis. Neuro: Awake and alert, GCS 15, oriented to person, place, time, and situation. Cranial nerves II-XII grossly intact. Motor strength 5/5 in all extremities. Sensory grossly intact. Cerebellar exam normal. Normal gait. Vital Signs: 18:46 BP 125 / 97; Pulse 121; Resp 19 S; Temp 97.6(TE); Pulse Ox 98% on R/A; Weight 68.04 kg jl7 (R); Height 5 ft. 11 in. (180.34 cm); 20:45 BP 121 / 64; Pulse 84; Resp 16; Pulse Ox 99% ; ak2 22:34 BP 114 / 67; Pulse 81; Resp 16; Pulse Ox 100% ; ak2 18:46 Body Mass Index 20.92 (68.04 kg, 180.34 cm) jl7 MDM: 19:13 Patient medically screened. rn 22:16 Differential diagnosis: esophagitis, gastritis, ETOH intoxication, anxiety. Data rn reviewed: vital signs, nurses notes, lab test result(s), radiologic studies, CT scan, and as a result, I will discharge patient. Counseling: I had a detailed discussion with the patient and/or guardian regarding: the historical points, exam findings, and any diagnostic results supporting the discharge/admit diagnosis, lab results, radiology results, the need for outpatient follow up, to return to the emergency department if symptoms worsen or persist or if there are any questions or concerns that arise at home. Response to treatment: the patient's symptoms have markedly improved after treatment, and as a result, I will discharge patient. Special discussion: I discussed with the patient/guardian in detail that at this point there is no indication for admission to the hospital. It is understood, however, that if the symptoms persist or worsen the patient needs to return immediately for re-evaluation. ED course: Resting comfortably, stable vitals, ct neck negative, most likely esophagitis and alcoholic gastritis. Recommend etoh cessation and antacids. . 02/18 19:24 Order name: Basic Metabolic Panel rn 02/18 19:24 Order name: CBC with Diff; Complete Time: 20:46 02/18 19:24 Order name: Hepatic Function; Complete Time: 20:46 02/18 19:24 Order name: Lipase; Complete Time: 20:46 02/18 19:25 Order name: Basic Metabolic Panel; Complete Time: 20:46 EDMS 02/18 19:37 Order name: ETOH Level; Complete Time: 20:46 02/18 19:24 Order name: IV Saline Lock; Complete Time: 19:37 rn 02/18 19:24 Order name: Labs collected and sent; Complete Time: 19:38 rn 02/18 19:24 Order name: CT Soft Tissue Neck W/contr; Complete Time: 20:46 rn Administered Medications: 19:56 Drug: Banana Bag - (NS 0.9% 1000 ml, foLIC Acid 1 mg, Thiamine 100 mg, Multivitamin 1 ak2 amp) Route: IV; Rate: calculated rate; Site: left antecubital; 19:56 Drug: Valium (diazepam) 5 mg Route: IVP; Site: right antecubital; ak2 19:56 Drug: GI Cocktail without - (Maalox Suspension 30 ml, Lidocaine Liquid 2 % 15 ak2 ml) Route: PO; 19:57 Drug: NS 0.9% 1000 ml Route: IV; Rate: 1000 ml; Site: left antecubital; ak2 Disposition: 02/18/21 22:18 Discharged to Home. Impression: Esophagitis, unspecified, Alcohol abuse with intoxication. - Condition is Stable. - Discharge Instructions: Alcohol Intoxication, Esophagitis. - Medication Reconciliation Form, Thank You Letter, Antibiotic Education, Prescription Opioid Use form. - Follow up: Private Physician; When: As needed; Reason: Recheck today's complaints, Re-evaluation by your physician. - Problem is new. - Symptoms have improved. Signatures: Dispatcher [employer] EDMS Akhil Harris MD MD rn Leal, CRIS Webster RN jl7 Andrea Young mi2 Corrections: (The following items were deleted from the chart) 22:35 22:18 02/18/2021 22:18 Discharged to Home. Impression: Esophagitis, unspecified; ak2 Alcohol abuse with intoxication. Condition is Stable. Forms are Medication Reconciliation Form, Thank You Letter, Antibiotic Education, Prescription Opioid Use. Follow up: Private Physician; When: As needed; Reason: Recheck today's complaints, Re-evaluation by your physician. Problem is new. Symptoms have improved. rn
[2021-02-18 22:40] VITALS: TEMP 97.6
[2021-02-18 22:43] VITALS: BP 114/67; O2SAT 100
== END 2021-02-18 22:35 | disposition home or self-care (01) ==
LOC: ER 18:19
DX: K20.90 Esophagitis, unspecified without bleeding (principal); F10.229 Alcohol dependence with intoxication, unspecified; F17.210 Nicotine dependence, cigarettes, uncomplicated; Z88.2 Allergy status to sulfonamides
CPT/HCPCS: 36415; 70491; 80048; 80076; 80320; 83690; 85025; 99284; J3360; J3411; J7030; Q9967

== ENCOUNTER 2021-03-02 19:38 | Emergency (ER) | payer SELFPAY ==
--- OUTSIDE RECORDS SUMMARY | 2021-03-02 19:40 | XMS REPORT | Continuity of Care Document ---
:1990 Author Organization [facility] t Address [address] [place] [address] Care Team Providers Name Role Phone Wilton [...] Clinicians Facility Department ID 2021-01-15 2021-01-15 [place] [id number] 11:26:00 14:29:00 Jovi Renae [id number] [place] [id number] [place] [address] [phone] [id number] 2021-01-14 2021-01-14 Emergency Symone Woods [facility] [id number] 17:42:00 22:07:00 Maya Renae [id number] [place] [id number] [place] [id number] [id number] 2020-12-28 2020-12-29 Emergency Yoselyn [facility] [id number] 18:36:00 00:13:00 Evan Renae [id number] [place] [id number] [place] [phone] [id number] 2020-10-22 2020-10-[address] [facility] [id number] 14:16:00 16:04:00 Zen Renae [id number] [place] [id number] [place] [phone] [id number] Results This patient has no known results.
[2021-03-02] MEDS ORDERED: NA CHLORIDE 0.9% 1,000 ML ONE (21:16)
[2021-03-02] MEDS ORDERED: THIAMINE 200 MG/2 ML INJ ONE (21:16)
[2021-03-02] MEDS ORDERED: MULTIVITAMINS 10 ML VIAL (INJ) IV ONE (21:16)
[2021-03-02] MEDS ORDERED: ONDANSETRON 4 MG/2 ML VIAL ONE (21:17)
[2021-03-02] MEDS ORDERED: FOLIC ACID 5 MG/ML VIAL ONE (21:17)
[2021-03-02 21:22] LABS: Absolute Lymphocytes (CBC) 1.7 K/uL (0.7-4.9); Basophils % 0.4 % (0-1.3); Hematocrit 43.1 % (39.6-49.0); Lymphocytes % 22.2 % (15.3-44.8); MPV 7.5 fL (7.6-11.3); RBC Red Blood Cell Count 4.44 M/uL (4.33-5.43)
[2021-03-02 21:26] LABS: ALT/SGPT 32 U/L (12-78); AST/SGOT 29 U/L (15-37); Albumin 4.1 g/dL (3.4-5.0); Alkaline Phosphatase 89 U/L (45-117); BUN Blood Urea Nitrogen 2 mg/dL (7-18); Bicarbonate 27 mmol/L (21-32); Bilirubin Direct 0.2 mg/dL (0-0.2); Bilirubin Total 0.4 mg/dL (0.2-1.0); Glucose Level 98 mg/dL (74-106); Lipase 184 U/L (73-393); Sodium Level 135 mmol/L (136-145)
--- NOTE | 2021-03-02 22:59 | ER ---
Nurse's Notes [facility] Name: Philip Saldaña Age: 30 yrs Sex: Male : 1990 Arrival Date: 03/02/2021 Time: 19:39 Bed 13 Private MD: Diagnosis: Alcohol abuse with intoxication, uncomplicated Presentation: 03/02 19:47 Chief complaint: Patient states: pt states "I have a lump in my throat and i feel like ak2 im detoxing from etoh". Coronavirus screen: Client denies travel out of the [place] in the last 14 days. Ebola Screen: Patient negative for fever greater than or equal to 101.5 degrees Fahrenheit, and additional compatible Ebola Virus Disease symptoms Patient denies exposure to infectious person. Patient denies travel to an Ebola-affected area in the 21 days before illness onset. No symptoms or risks identified at this time. Initial Sepsis Screen: Does the patient meet any 2 criteria? No. Patient's initial sepsis screen is negative. Does the patient have a suspected source of infection? No. Patient's initial sepsis screen is negative. Risk Assessment: Do you want to hurt yourself or someone else? Patient reports no desire to harm self or others. Onset of symptoms was March 02, 2021. 19:47 Method Of Arrival: Ambulatory ak2 19:47 Acuity: KASSIDY 3 ak2 Triage Assessment: 19:50 General: Appears in no apparent distress. Behavior is calm, cooperative. Pain: Denies ak2 pain. Historical: - Allergies: 19:50 Sulfa (Sulfonamide Antibiotics); ak2 19:50 Demerol; ak2 - Home Meds: 21:28 multivitamin Oral tab daily [Active]; rr5 - PMHx: 21:28 Alcoholism; Anxiety; Depression; GERD; hiatal hernia; HYPOGLYCEMIA; rr5 - Immunization history:: Adult Immunizations up to date. - Social history:: Smoking status: unknown. - Family history:: not pertinent. Screenin:00 Abuse screen: Denies threats or abuse. Denies injuries from another. Nutritional rr5 screening: No deficits noted. Tuberculosis screening: No symptoms or risk factors identified. Fall Risk IV access (20 points). Total Harmon Fall Scale indicates No Risk (0-24 pts). Assessment: 21:00 General: Appears in no apparent distress. uncomfortable, Behavior is calm, cooperative, rr5 Smells of alcohol, Reports had 2-3 bottles of vodka. 21:00 Pain: Denies pain. Neuro: Level of Consciousness is awake, alert, obeys commands, rr5 Oriented to person, place, time. Cardiovascular: Capillary refill < 3 seconds Patient's skin is warm and dry. Respiratory: Airway is patent Respiratory effort is even, unlabored, Respiratory pattern is regular, symmetrical. GI: Abdomen is round non-distended, Reports nausea, vomiting. : No signs and/or symptoms were reported regarding the genitourinary system. EENT: Reports I have a lump on my throat. Derm: Skin temperature is warm. Musculoskeletal: Capillary refill < 3 seconds. 22:00 Reassessment: Patient appears in no apparent distress at this time. Patient and/or rr5 family updated on plan of care and expected duration. Pain level reassessed. Patient is alert, oriented x 3, equal unlabored respirations, skin warm/dry/pink. awaiting for results. 23:11 Reassessment: Patient appears in no apparent distress at this time. Patient is alert, rr5 oriented x 3, equal unlabored respirations, skin warm/dry/pink. discharge instruction given and explained without complaints made Patient states symptoms have improved. Vital Signs: 19:47 BP 120 / 87; Pulse 103; Resp 20; Temp 98.3; Pulse Ox 100% ; Weight 66.22 kg; Height 6 ak2 ft. 2 in. (187.96 cm); 22:00 BP 126 / 89; Pulse 99; Resp 17; Pulse Ox 100% ; rr5 23:12 BP 115 / 70; Pulse 95; Resp 16; Pulse Ox 98% ; rr5 19:47 Body Mass Index 18.75 (66.22 kg, 187.96 cm) ak2 ED Course: 19:39 Patient arrived in ED. ag3 19:50 Triage completed. ak2 20:36 Markel Tanner MD is Attending Physician. ma2 20:38 Elan Barajas RN is Primary Nurse. rr5 21:00 Patient has correct armband on for positive identification. Placed in gown. Bed in low rr5 position. Pulse ox on. NIBP on. 21:00 Warm blanket given. rr5 21:02 Inserted saline lock: 20 gauge in right antecubital area, using aseptic technique. rr5 Blood collected. 21:20 Chest Single View XRAY In Process Unspecified. EDMS 21:20 Arm band placed on right wrist. rr5 23:12 No provider procedures requiring assistance completed. IV discontinued, intact, rr5 bleeding controlled, No redness/swelling at site. Pressure dressing applied. Administered Medications: 21:01 Drug: Banana Bag - (NS 0.9% 1000 ml, foLIC Acid 1 mg, Thiamine 100 mg, Multivitamin 1 rr5 amp) Route: IV; Rate: calculated rate; Site: right antecubital; 23:13 Follow up: Response: No adverse reaction; IV Status: Order to discontinue infusion; IV rr5 Intake: 400ml 21:01 Drug: Zofran (Ondansetron) 4 mg Route: IVP; Site: right antecubital; rr5 22:00 Follow up: Response: No adverse reaction rr5 Intake: 23:13 IV: 400ml; Total: 400ml. rr5 Outcome: 22:58 Discharge ordered by . sofia 23:12 Discharged to home ambulatory. rr5 23:12 Condition: stable 23:12 Discharge instructions given to patient, Instructed on discharge instructions, follow up and referral plans. medication usage, Demonstrated understanding of instructions, follow-up care, medications, Prescriptions given X 2. 23:14 Patient left the ED. rr5 Signatures: Dispatcher [employer] EDMS Markel Tanner MD MD ma2 Angie Guerra3 Elan Barajas RN RN rr5 Andrea Young2 Corrections: (The following items were deleted from the chart) 21:27 21:00 EENT: No signs and/or symptoms were reported regarding the EENT system. rr5 rr5
--- NOTE | 2021-03-02 23:00 | EDPHYS ---
Physician Documentation [facility] Name: Philip Saldaña Age: 30 yrs Sex: Male : 1990 Arrival Date: 03/02/2021 Time: 19:39 Bed 13 Private MD: ED Physician Markel Tanner HPI: 03/02 21:43 This 30 yrs old Male presents to ER via Ambulatory with complaints of Alcohol ma2 Withdrawal, nausea. 21:43 The patient presents to the emergency department with nausea. Onset: The ma2 symptoms/episode began/occurred gradually, 1 day(s) ago. Associated signs and symptoms: Pertinent negatives: diarrhea, fever, flatulence. Severity of symptoms: At their worst the symptoms were mild in the emergency department the symptoms are unchanged. The patient has experienced similar episodes in the past. heavy alcohol drinking, last drink 3 hrs ago, . Historical: - Allergies: 19:50 Sulfa (Sulfonamide Antibiotics); ak2 19:50 Demerol; ak2 - Home Meds: 21:28 multivitamin Oral tab daily [Active]; rr5 - PMHx: 21:28 Alcoholism; Anxiety; Depression; GERD; hiatal hernia; HYPOGLYCEMIA; rr5 - Immunization history:: Adult Immunizations up to date. - Social history:: Smoking status: unknown. - Family history:: not pertinent. ROS: 21:43 Constitutional: Negative for fever, chills, and weight loss. ma2 21:43 All other systems are negative. Exam: 21:43 Constitutional: This is a well developed, well nourished patient who is awake, alert, ma2 and in no acute distress. Chest/axilla: Normal chest wall appearance and motion. Nontender with no deformity. No lesions are appreciated. Cardiovascular: Regular rate and rhythm with a normal S1 and S2. No gallops, murmurs, or rubs. Normal PMI, no JVD. No pulse deficits. Respiratory: Lungs have equal breath sounds bilaterally, clear to auscultation and percussion. No rales, rhonchi or wheezes noted. No increased work of breathing, no retractions or nasal flaring. Abdomen/GI: Soft, non-tender, with normal bowel sounds. No distension or tympany. No guarding or rebound. No evidence of tenderness throughout. Back: No spinal tenderness. No costovertebral tenderness. Full range of motion. MS/ Extremity: Pulses equal, no cyanosis. Neurovascular intact. Full, normal range of motion. Neuro: Awake and alert, GCS 15, oriented to person, place, time, and situation. Cranial nerves II-XII grossly intact. Motor strength 5/5 in all extremities. Sensory grossly intact. Cerebellar exam normal. Normal gait. Vital Signs: 19:47 BP 120 / 87; Pulse 103; Resp 20; Temp 98.3; Pulse Ox 100% ; Weight 66.22 kg; Height 6 ak2 ft. 2 in. (187.96 cm); 22:00 BP 126 / 89; Pulse 99; Resp 17; Pulse Ox 100% ; rr5 23:12 BP 115 / 70; Pulse 95; Resp 16; Pulse Ox 98% ; rr5 19:47 Body Mass Index 18.75 (66.22 kg, 187.96 cm) ak2 MDM: 20:36 Patient medically screened. ma2 21:43 Differential diagnosis: gastritis, diverticulitis, viral gastroenteritis, ma2 gastroenteritis. Data reviewed: vital signs, nurses notes. Counseling: I had a detailed discussion with the patient and/or guardian regarding: the historical points, exam findings, and any diagnostic results supporting the discharge/admit diagnosis, the presence of at least one elevated blood pressure reading (>120/80) during this emergency department visit. Response to treatment: the patient's symptoms have markedly improved after treatment. 03/02 20:49 Order name: Basic Metabolic Panel; Complete Time: 22:59 [facility] 03/02 20:49 Order name: CBC with Diff; Complete Time: 22:59 [facility] 03/02 20:49 Order name: Hepatic Function; Complete Time: 22:59 oh03/02 20:49 Order name: Lipase; Complete Time: 22:59 [facility] 03/02 20:49 Order name: Chest Single View XRAY [facility] 03/02 20:49 Order name: IV Saline Lock; Complete Time: 21:02 oh03/02 20:49 Order name: Labs collected and sent; Complete Time: 21:02 Administered Medications: 21:01 Drug: Banana Bag - (NS 0.9% 1000 ml, foLIC Acid 1 mg, Thiamine 100 mg, Multivitamin 1 rr5 amp) Route: IV; Rate: calculated rate; Site: right antecubital; 23:13 Follow up: Response: No adverse reaction; IV Status: Order to discontinue infusion; IV rr5 Intake: 400ml 21:01 Drug: Zofran (Ondansetron) 4 mg Route: IVP; Site: right antecubital; rr5 22:00 Follow up: Response: No adverse reaction rr5 Disposition: 03/02/21 22:58 Discharged to Home. Impression: Alcohol abuse with intoxication, uncomplicated. - Condition is Stable. - Discharge Instructions: Alcohol Intoxication, Ofuk-if-Isdc, Alcohol Withdrawal, Jxfn-ey-Yuqz. - Prescriptions for Zofran 4 mg Oral Tablet - take 1 tablet by ORAL route every 12 hours As needed; 20 tablet. Pepcid 20 mg Oral Tablet - take 1 tablet by ORAL route once daily for 10 days; 10 tablet. - Medication Reconciliation Form, Thank You Letter, Antibiotic Education, Prescription Opioid Use form. - Follow up: Private Physician; When: Tomorrow; Reason: If symptoms return. Signatures: Dispatcher [employer] EDMS Markel Tanner MD MD ma2 Elan Barajas RN RN rr5 Andrea Young2 Corrections: (The following items were deleted from the chart) 23:14 22:58 03/02/2021 22:58 Discharged to Home. Impression: Alcohol abuse with intoxication, rr5 uncomplicated. Condition is Stable. Discharge Instructions: Alcohol Intoxication, Usrq-in-Ktxo, Alcohol Withdrawal, Evht-yg-Ebiy. Prescriptions for Zofran 4 mg Oral Tablet - take 1 tablet by ORAL route every 12 hours As needed; 20 tablet, Pepcid 20 mg Oral Tablet - take 1 tablet by ORAL route once daily for 10 days; 10 tablet. and Forms are Medication Reconciliation Form, Thank You Letter, Antibiotic Education, Prescription Opioid Use. Follow up: Private Physician; When: Tomorrow; Reason: If symptoms return. ma2
[2021-03-03 00:59] VITALS: TEMP 98.8
[2021-03-03 01:01] VITALS: BP 135/88; O2SAT 97
--- NOTE | 2021-03-03 08:30 | RAD REPORT ---
EXAM DESCRIPTION: RAD - Chest Single View - 03/02/2021 9:21 pm CLINICAL HISTORY: Congestion;Chest pain Chest pain. COMPARISON: Chest Single View dated 08/18/2017; CHEST PA AND LAT 2 VIEW dated 07/25/2013 FINDINGS: Portable technique limits examination quality. The lungs are grossly clear. The heart is normal in size. No displaced fractures. IMPRESSION: No acute intrathoracic process suspected.
== END 2021-03-02 23:14 | disposition home or self-care (01) ==
LOC: ER 19:38
DX: F10.229 Alcohol dependence with intoxication, unspecified (principal); Z88.2 Allergy status to sulfonamides; Z88.5 Allergy status to narcotic agent
CPT/HCPCS: 36415; 71045; 80048; 80076; 83690; 85025; 96365; 96366; 96375; 99284; J2405; J3411; J7030

== ENCOUNTER 2021-03-07 09:07 | Emergency (ER) | payer SELFPAY ==
--- OUTSIDE RECORDS SUMMARY | 2021-03-07 09:09 | XMS REPORT | Continuity of Care Document ---
:1990 Author Organization [facility] t Address [address] [place] [address] Care Team Providers Name Role Phone [place]ton [...] Clinicians Facility Department ID 2021-01-15 2021-01-15 [place] [id number] 11:26:00 14:29:00 Jovi Renae [id number] [place] [id number] [place] [address] [id number] 2021-01-14 2021-01-14 Emergency Symone Woods [facility] [id number] 17:42:00 22:07:00 Maya Renae [id number] [place] [id number] [place] [id number] [id number] 2020-12-28 2020-12-29 Emergency Yoselyn [facility] [id number] 18:36:00 00:13:00 Evan Renae [id number] [place] [id number] [place] [id number] 2020-10-22 2020-10-22 [facility] [id number] 14:16:00 16:04:00 Zen Renae [id number] [place] [id number] [place] [phone] [id number] Results This patient has no known results.
[2021-03-07] MEDS ORDERED: FOLIC ACID 1 MG, MULTIVITAMINS INJ 10 ML, THIAMINE HCL 100 MG in NA CHLORIDE 0.9% 1,000 ML IV ONE (10:00)
[2021-03-07 10:10] LABS: Absolute Lymphocytes (CBC) 1.1 K/uL (0.7-4.9); Basophils % 0.2 % (0-1.3); Lymphocytes % 17.9 % (15.3-44.8); MPV 7.6 fL (7.6-11.3)
[2021-03-07] MEDS ORDERED: DIPHENHYDRAMINE 50 MG/ML VIAL ONE (10:26)
[2021-03-07] MEDS ORDERED: NA CHLORIDE 0.9% 50 ML ONE (10:26)
[2021-03-07] MEDS ORDERED: METOCLOPRAMIDE 10 MG/2mL INJ ONE (10:26)
[2021-03-07 10:31] LABS: ALT/SGPT 33 U/L (12-78); AST/SGOT 25 U/L (15-37); Albumin 3.8 g/dL (3.4-5.0); Alkaline Phosphatase 93 U/L (45-117); BUN Blood Urea Nitrogen 3 mg/dL (7-18); Bicarbonate 27 mmol/L (21-32); Bilirubin Direct 0.2 mg/dL (0-0.2); Bilirubin Total 0.7 mg/dL (0.2-1.0); Glucose Level 90 mg/dL (74-106); Lipase 156 U/L (73-393); Potassium 4.1 mmol/L (3.5-5.1); Protein, Total 7.6 g/dL (6.4-8.2); Sodium Level 133 mmol/L (136-145)
[2021-03-07] MEDS ORDERED: ONDANSETRON 4 MG/2 ML VIAL ONE (12:08)
[2021-03-07] MEDS ORDERED: MAGNES/ALUMIN/SIMET 30ML UCUP ONE (14:43)
[2021-03-07] MEDS ORDERED: LIDOCAINE VISCOUS 2% SOLN 15 ML UDC ONE (14:43)
--- NOTE | 2021-03-07 16:24 | ER ---
Nurse's Notes [facility] Name: Philip Saldaña Age: 30 yrs Sex: Male : 1990 Arrival Date: 03/07/2021 Time: 09:10 Bed 16 Private MD: Diagnosis: Alcohol abuse;Vomiting Presentation: 03/07 09:20 Chief complaint: "I have a deviated septum and GERD and the only way to deal with the hb pain is to drink, I have had nothing but vodka and cigarettes for the last 3 days, now I can't keep anything down." Last drink was at 0600. Coronavirus screen: At this time, the client does not indicate any symptoms associated with coronavirus-19. Ebola Screen: No symptoms or risks identified at this time. Initial Sepsis Screen: Does the patient meet any 2 criteria? HR > 90 bpm. No. Patient's initial sepsis screen is negative. Does the patient have a suspected source of infection? No. Patient's initial sepsis screen is negative. Risk Assessment: Do you want to hurt yourself or someone else? Patient reports no desire to harm self or others. Onset of symptoms was March 05, 2021. 09:20 Method Of Arrival: Ambulatory hb 09:20 Acuity: KASSIDY 2 hb Historical: - Allergies: 09:22 Demerol; hb 09:22 Sulfa (Sulfonamide Antibiotics); hb - PMHx: 09:22 Alcoholism; Anxiety; Depression; GERD; hiatal hernia; HYPOGLYCEMIA; hb - Immunization history:: Adult Immunizations up to date. - Social history:: Smoking status: Patient reports the use of cigarette tobacco products, smokes one pack cigarettes per day. Patient uses alcohol, patient/guardian reports recent binge of alcohol consumption. Screenin:26 Abuse screen: Denies threats or abuse. Nutritional screening: No deficits noted. ll1 Tuberculosis screening: No symptoms or risk factors identified. Fall Risk IV access (20 points). Gait- Weak (10 pts.). Total Harmon Fall Scale indicates Low Risk Score (25-44 pts). Fall prevention measures have been instituted. Side Rails Up X 2 Frequent Obs/Assesments occuring As available Patient and Family Educated on Fall Prevention Program and strategies. Assessment: 09:40 General: Appears ill, Behavior is calm, cooperative, appropriate for age. Pain: ll1 Complains of pain in head/abd Quality of pain is described as aching, Aggravated by increased activity. Neuro: Level of Consciousness is awake, alert, obeys commands, Oriented to person, place, time, situation, Appropriate for age [place] Yarder are equal bilaterally Moves all extremities. Full function Weakness Gait is steady, Speech is normal, Reports dizziness, headache. Cardiovascular: No deficits noted. Respiratory: No deficits noted. GI: Abdomen is flat, Bowel sounds present X 4 quads. Abd is soft Abdomen is tender to palpation X 4 quads. Reports lower abdominal pain, upper abdominal pain, intolerance of fluids, intolerance of food, nausea, vomiting. 10:27 Reassessment: Patient appears in no apparent distress at this time. Patient and/or ca1 family updated on plan of care and expected duration. Pain level reassessed. Patient is alert, oriented x 3, equal unlabored respirations, skin warm/dry/pink. 11:30 Reassessment: Patient appears in no apparent distress at this time. Patient and/or ca1 family updated on plan of care and expected duration. Pain level reassessed. Patient is alert, oriented x 3, equal unlabored respirations, skin warm/dry/pink. 12:30 Reassessment: Patient appears in no apparent distress at this time. Patient and/or ca1 family updated on plan of care and expected duration. Pain level reassessed. Patient is alert, oriented x 3, equal unlabored respirations, skin warm/dry/pink. 13:47 Reassessment: Patient appears in no apparent distress at this time. Patient and/or ca1 family updated on plan of care and expected duration. Pain level reassessed. Patient is alert, oriented x 3, equal unlabored respirations, skin warm/dry/pink. 14:35 Reassessment: Patient appears in no apparent distress at this time. Patient and/or ca1 family updated on plan of care and expected duration. Pain level reassessed. Patient is alert, oriented x 3, equal unlabored respirations, skin warm/dry/pink. 15:34 Reassessment: Patient appears in no apparent distress at this time. Patient and/or ca1 family updated on plan of care and expected duration. Pain level reassessed. Patient is alert, oriented x 3, equal unlabored respirations, skin warm/dry/pink. 16:32 Reassessment: Patient appears in no apparent distress at this time. Patient and/or ca1 family updated on plan of care and expected duration. Pain level reassessed. Patient is alert, oriented x 3, equal unlabored respirations, skin warm/dry/pink. Vital Signs: 09:20 BP 123 / 103; Pulse 128; Resp 18; Temp 97.3; Pulse Ox 100% on R/A; Weight 68.04 kg; hb Height 5 ft. 11 in. (180.34 cm); Pain 7/10; 10:11 BP 120 / 75 Sitting; Pulse 102; Pulse Ox 99% on R/A; mb4 10:53 BP 113 / 67; Pulse 71; Pulse Ox 100% on R/A; mb4 12:30 BP 112 / 77; Pulse 79; Resp 16 S; Pulse Ox 99% on R/A; ca1 13:47 BP 108 / 69; Pulse 81; Resp 16 S; Pulse Ox 99% on R/A; ca1 14:35 BP 112 / 72; Pulse 82; Resp 16 S; Pulse Ox 98% on R/A; ca1 15:30 BP 117 / 72; Pulse 82; Resp 17 S; Pulse Ox 98% on R/A; ca1 16:32 BP 113 / 64; Pulse 79; Resp 16 S; Pulse Ox 98% on R/A; ca1 09:20 Body Mass Index 20.92 (68.04 kg, 180.34 cm) hb ED Course: 09:10 Patient arrived in ED. bp1 09:10 Adalberto Dill PA is PHCP. jmm 09:10 Fco García MD is Attending Physician. jmm 09:22 Triage completed. hb 09:22 Arm band placed on. hb 09:40 Inserted saline lock: 20 gauge in left antecubital area, using aseptic technique. Blood ll1 collected. 09:44 Alex Land, RN is Primary Nurse. ll1 10:26 Patient has correct armband on for positive identification. Bed in low position. Call ll1 light in reach. Side rails up X 1. 16:33 No provider procedures requiring assistance completed. IV discontinued, intact, ca1 bleeding controlled, No redness/swelling at site. Pressure dressing applied. Administered Medications: 10:10 Drug: diphenhydrAMINE 25 mg Route: IVP; Site: left antecubital; ca1 16:12 Follow up: Response: No adverse reaction; Marked relief of symptoms ca1 10:12 Drug: Reglan (metoCLOPramide) 10 mg Route: IVP; Site: left antecubital; ca1 16:12 Follow up: Response: No adverse reaction; Nausea is decreased ca1 10:14 Drug: Banana Bag - (NS 0.9% 1000 ml, foLIC Acid 1 mg, Thiamine 100 mg, Multivitamin 1 ca1 amp) Route: IV; Rate: calculated rate; Site: left antecubital; 16:12 Follow up: Urine output 800 ml; Response: No adverse reaction; IV Status: Completed ca1 infusion; IV Intake: 1000ml 11:51 Drug: Zofran (Ondansetron) 4 mg Route: IVP; Site: left antecubital; ca1 16:12 Follow up: Response: No adverse reaction; Nausea is decreased ca1 14:23 Drug: GI Cocktail without - (Maalox Suspension 30 ml, Lidocaine Liquid 2 % 15 ca1 ml) Route: PO; 16:13 Follow up: Response: No adverse reaction; Marked relief of symptoms ca1 Intake: 16:12 IV: 1000ml; Total: 1000ml. ca1 Output: 16:12 Urine: 800ml; Total: 800ml. ca1 Outcome: 16:24 Discharge ordered by . sigifredo 16:33 Discharged to home ambulatory. ca1 16:33 Condition: stable 16:33 Discharge instructions given to patient, Instructed on discharge instructions, follow up and referral plans. medication usage, Demonstrated understanding of instructions, follow-up care, medications, Prescriptions given X 3. 16:33 Patient left the ED. ca1 Signatures: Adalberto Dill PA PA jmm Baxter, Heather, RN RN Josi Diana mb4 Doris Guadarrama RN RN [facility] Alex Land RN RN ll1 Stacey Workman [facility] Corrections: (The following items were deleted from the chart) 09:23 09:20 Chief complaint: "I have a deviated septum and GERD and the only way to deal with hb the pain is to drink, I have had nothing but vodka and cigarettes for the last 3 days, now I can't keep anything down."
--- NOTE | 2021-03-07 16:25 | EDPHYS ---
Physician Documentation [facility] Name: Philip Saldaña Age: 30 yrs Sex: Male : 1990 Arrival Date: 03/07/2021 Time: 09:10 Bed 16 Private MD: ED Physician Fco García HPI: 03/07 09:54 This 30 yrs old Male presents to ER via Ambulatory with complaints of jmm Vomiting. 09:54 The patient presents to the emergency department with nausea, vomiting. Onset: The jmm symptoms/episode began/occurred gradually. Possible causes: etoh. The symptoms are aggravated by nothing. The symptoms are alleviated by nothing. Associated signs and symptoms: Pertinent positives: vomiting, Pertinent negatives: abdominal pain. The patient has experienced similar episodes in the past, chronically. Historical: - Allergies: 09:22 Demerol; hb 09:22 Sulfa (Sulfonamide Antibiotics); hb - PMHx: 09:22 Alcoholism; Anxiety; Depression; GERD; hiatal hernia; HYPOGLYCEMIA; hb - Immunization history:: Adult Immunizations up to date. - Social history:: Smoking status: Patient reports the use of cigarette tobacco products, smokes one pack cigarettes per day. Patient uses alcohol, patient/guardian reports recent binge of alcohol consumption. ROS: 09:54 Constitutional: Negative for fever, chills, and weight loss, Cardiovascular: Negative jmm for chest pain, palpitations, and edema, Respiratory: Negative for shortness of breath, cough, wheezing, and pleuritic chest pain. 09:54 Abdomen/GI: Positive for vomiting. 09:54 All other systems are negative. Exam: 09:54 Constitutional: This is a well developed, well nourished patient who is awake, alert, jmm and in no acute distress. Head/Face: atraumatic. Eyes: EOMI, no conjunctival erythema appreciated ENT: Moist Mucus Membranes Neck: Trachea midline, Supple Chest/axilla: Normal chest wall appearance and motion. Cardiovascular: Regular rate and rhythm. No edema appreciated Respiratory: Normal respirations, no respiratory distress appreciated Abdomen/GI: Non distended, soft Back: Normal ROM Skin: General appearance color normal MS/ Extremity: Moves all extremities, no obvious deformities appreciated, no edema noted to the lower extremities Neuro: Awake and alert, normal gait Psych: Behavior is normal, Mood is normal, Patient is cooperative and pleasant Vital Signs: 09:20 BP 123 / 103; Pulse 128; Resp 18; Temp 97.3; Pulse Ox 100% on R/A; Weight 68.04 kg; hb Height 5 ft. 11 in. (180.34 cm); Pain 7/10; 10:11 BP 120 / 75 Sitting; Pulse 102; Pulse Ox 99% on R/A; mb4 10:53 BP 113 / 67; Pulse 71; Pulse Ox 100% on R/A; mb4 12:30 BP 112 / 77; Pulse 79; Resp 16 S; Pulse Ox 99% on R/A; ca1 13:47 BP 108 / 69; Pulse 81; Resp 16 S; Pulse Ox 99% on R/A; ca1 14:35 BP 112 / 72; Pulse 82; Resp 16 S; Pulse Ox 98% on R/A; ca1 15:30 BP 117 / 72; Pulse 82; Resp 17 S; Pulse Ox 98% on R/A; ca1 16:32 BP 113 / 64; Pulse 79; Resp 16 S; Pulse Ox 98% on R/A; ca1 09:20 Body Mass Index 20.92 (68.04 kg, 180.34 cm) hb MDM: 09:37 Patient medically screened. haris 16:22 Data reviewed: vital signs, nurses notes. Counseling: I had a detailed discussion with sigifredo the patient and/or guardian regarding: the historical points, exam findings, and any diagnostic results supporting the discharge/admit diagnosis, lab results, radiology results, the need for outpatient follow up, to return to the emergency department if symptoms worsen or persist or if there are any questions or concerns that arise at home. ED course: Patient advised to follow up with pcp and otherwise givenm strict return precautions. Can tolerate PO in the ED. . 03/07 09:43 Order name: Basic Metabolic Panel [facility] 03/07 09:43 Order name: CBC with Diff; Complete Time: 10:12 [facility] 03/07 09:43 Order name: Hepatic Function; Complete Time: 10:39 [facility] 03/07 09:43 Order name: Lipase; Complete Time: 10:39 [facility] 03/07 09:43 Order name: Basic Metabolic Panel; Complete Time: 10:39 [facility] 03/07 09:44 Order name: ETOH Level; Complete Time: 12:00 [facility] 03/07 09:43 Order name: IV Saline Lock; Complete Time: 09:44 [facility] 03/07 09:43 Order name: Labs collected and sent; Complete Time: :44 [facility] Administered Medications: 10:10 Drug: diphenhydrAMINE 25 mg Route: IVP; Site: left antecubital; ca1 16:12 Follow up: Response: No adverse reaction; Marked relief of symptoms ca1 10:12 Drug: Reglan (metoCLOPramide) 10 mg Route: IVP; Site: left antecubital; ca1 16:12 Follow up: Response: No adverse reaction; Nausea is decreased ca1 10:14 Drug: Banana Bag - (NS 0.9% 1000 ml, foLIC Acid 1 mg, Thiamine 100 mg, Multivitamin 1 ca1 amp) Route: IV; Rate: calculated rate; Site: left antecubital; 16:12 Follow up: Urine output 800 ml; Response: No adverse reaction; IV Status: Completed ca1 infusion; IV Intake: 1000ml 11:51 Drug: Zofran (Ondansetron) 4 mg Route: IVP; Site: left antecubital; ca1 16:12 Follow up: Response: No adverse reaction; Nausea is decreased ca1 14:23 Drug: GI Cocktail without - (Maalox Suspension 30 ml, Lidocaine Liquid 2 % 15 ca1 ml) Route: PO; 16:13 Follow up: Response: No adverse reaction; Marked relief of symptoms ca1 Disposition: 03/08 07:28 Co-signature as Attending Physician, Fco García MD I agree with the assessment and haris plan of care. Disposition: 03/07/21 16:24 Discharged to Home. Impression: Alcohol abuse, Vomiting. - Condition is Stable. - Discharge Instructions: Nausea and Vomiting, Adult. - Prescriptions for Zofran ODT 4 mg Oral tablet,disintegrating - place 1 tablet by TRANSLINGUAL route every 4-6 hours; 20 tablet. Carafate 1 gram Oral Tablet - take 1 tablet by ORAL route 4 times per day take on an empty stomach, beginning on waking and last dose at bedtime; 100 tablet. Pepcid 20 mg Oral Tablet - take 1 tablet by ORAL route every 12 hours for 10 days; 20 tablet. - Medication Reconciliation Form, Thank You Letter, Antibiotic Education, Prescription Opioid Use form. - Follow up: Private Physician; When: 2 - 3 days; Reason: Recheck today's complaints, Continuance of care, Re-evaluation by your physician. Signatures: Dispatcher [employer] Fco Starr MD MD cha Mickail, Joel, PA PA jmm Baxter, Heather, CRIS RN Doris Guadarrama RN RN ca1 Corrections: (The following items were deleted from the chart) 03/07 16:33 16:24 03/07/2021 16:24 Discharged to Home. Impression: Alcohol abuse; Vomiting. ca1 Condition is Stable. Forms are Medication Reconciliation Form, Thank You Letter, Antibiotic Education, Prescription Opioid Use. Follow up: Private Physician; When: 2 - 3 days; Reason: Recheck today's complaints, Continuance of care, Re-evaluation by your physician. sigifredo
[2021-03-07 16:52] VITALS: TEMP 97.3
[2021-03-07 17:00] VITALS: O2SAT 98
[2021-03-07 17:03] VITALS: BP 113/64
== END 2021-03-07 16:33 | disposition home or self-care (01) ==
LOC: ER 09:07
DX: F10.20 Alcohol dependence, uncomplicated (principal); F17.210 Nicotine dependence, cigarettes, uncomplicated; Z88.2 Allergy status to sulfonamides; Z88.5 Allergy status to narcotic agent
CPT/HCPCS: 36415; 80048; 80076; 80320; 83690; 85025; 96365; 96366; 96375; 99284; J1200; J2405; J2765; J3411; J7030

== ENCOUNTER 2021-03-16 20:30 | Emergency (ER) | payer SELFPAY ==
--- OUTSIDE RECORDS SUMMARY | 2021-03-16 20:32 | XMS REPORT | Continuity of Care Document ---
:1990 Author Organization [facility] t Address [address] [place] [address] Care Team Providers Name Role Phone [place] [...] Clinicians Facility Department ID 2021-01-15 2021-01-15 [place] [id number] 11:26:00 14:29:00 Jovi Renae [id number] [place] [id number] [place] [address] [id number] 2021-01-14 2021-01-14 Emergency Symone Woods [facility] [id number] 17:42:00 22:07:00 Maya Renae [id number] [place] [id number] [place] [id number] [id number] 2020-12-28 2020-12-29 Emergency Yoselyn [facility] [id number] 18:36:00 00:13:00 Evan Renae [id number] [place] [id number] [place] [id number] [id number] 2020-10-22 2020-10-22 [facility] [id number] 14:16:00 16:04:00 Zen Renae [id number] [place] [id number] [place] [id number] [id number] Results This patient has no known results.
[2021-03-16 22:06] LABS: Urine Blood Negative (Negative); Urine Glucose Negative (Negative); Urine Protein 1+ (Negative); Urine Specific Gravity 1.015 (1.005-1.030); Urine pH 8.5 (5.0-7.0)
[2021-03-16] MEDS ORDERED: THIAMINE 200 MG/2 ML INJ ONE (22:07)
[2021-03-16] MEDS ORDERED: ONDANSETRON 4 MG/2 ML VIAL ONE (22:07)
[2021-03-16] MEDS ORDERED: FAMOTIDINE 20 MG/2 ML VIAL IV ONE (22:08)
[2021-03-16] MEDS ORDERED: NA CHLORIDE 0.9% 1,000 ML ONE (22:08)
[2021-03-16] MEDS ORDERED: FOLIC ACID 5 MG/ML VIAL ONE (22:09)
[2021-03-16 22:23] LABS: Barbiturates NEGATIVE (NEGATIVE); Benzodiazepines NEGATIVE (NEGATIVE); Cocaine NEGATIVE (NEGATIVE); METHAMPHETAM NEGATIVE (NEGATIVE); Methadone NEGATIVE (NEGATIVE); Opiates NEGATIVE (NEGATIVE); Phencyclidine NEGATIVE (NEGATIVE); THC Cannibis NEGATIVE (NEGATIVE)
[2021-03-16 22:42] LABS: Protime INR 0.91
[2021-03-16 22:49] LABS: Absolute Lymphocytes (CBC) 1.6 K/uL (0.7-4.9); Basophils % 0.7 % (0-1.3); Hematocrit 46.1 % (39.6-49.0); Lymphocytes % 24.5 % (15.3-44.8); MPV 7.5 fL (7.6-11.3); RBC Red Blood Cell Count 4.64 M/uL (4.33-5.43)
[2021-03-16 23:04] LABS: ALT/SGPT 37 U/L (12-78); AST/SGOT 29 U/L (15-37); Albumin 3.6 g/dL (3.4-5.0); Alkaline Phosphatase 87 U/L (45-117); BUN Blood Urea Nitrogen 3 mg/dL (7-18); Bicarbonate 27 mmol/L (21-32); Bilirubin Direct < 0.1 mg/dL (0-0.2); Bilirubin Total 0.3 mg/dL (0.2-1.0); Glucose Level 84 mg/dL (74-106); Lipase 135 U/L (73-393); Potassium 3.9 mmol/L (3.5-5.1); Protein, Total 7.5 g/dL (6.4-8.2); Sodium Level 136 mmol/L (136-145)
--- NOTE | 2021-03-16 23:51 | EDPHYS ---
Physician Documentation [facility] Name: Philip Saldaña Age: 30 yrs Sex: Male : 1990 Arrival Date: 03/16/2021 Time: 20:31 Bed 14 Private MD: ED Physician Geoffrey Hayes HPI: 03/16 22:01 This 30 yrs old Male presents to ER via Ambulatory with complaints of mh7 Vomiting, Alcohol Withdrawal. 22:01 The patient presents to the emergency department with nausea, that is moderate, mh7 vomiting, that is intermittent, described as clear fluid. Onset: The symptoms/episode began/occurred this morning. Possible causes: ETOH Ingestion. The symptoms are aggravated by alcohol, The symptoms are alleviated by nothing. Associated signs and symptoms: Pertinent negatives: abdominal pain, anorexia, belching, constipation, diarrhea, dysuria, fever, flatulence, GI bleeding, hematuria. Severity of symptoms: At their worst the symptoms were moderate today, in the emergency department the symptoms are unchanged. The patient has experienced similar episodes in the past, multiple times. Historical: - Allergies: 20:39 Demerol; ca1 20:39 Sulfa (Sulfonamide Antibiotics); ca1 - PMHx: 20:39 Alcoholism; Anxiety; Depression; hiatal hernia; HYPOGLYCEMIA; GERD; ca1 - Immunization history:: Client reports having NOT received the Covid vaccine. Flu vaccine is not up to date. - Social history:: Smoking status: Patient reports the use of cigarette tobacco products, smokes one pack cigarettes per day. Patient uses alcohol, on a daily basis. Vodka. ROS: 22:01 Constitutional: Negative for fever, chills, and weight loss, Eyes: Negative for injury, mh7 pain, redness, and discharge, ENT: Negative for injury, pain, and discharge, Neck: Negative for injury, pain, and swelling, Cardiovascular: Negative for chest pain, palpitations, and edema, Respiratory: Negative for shortness of breath, cough, wheezing, and pleuritic chest pain, Back: Negative for injury and pain, : Negative for injury, bleeding, discharge, and swelling, MS/Extremity: Negative for injury and deformity, Skin: Negative for injury, rash, and discoloration, Neuro: Negative for headache, weakness, numbness, tingling, and seizure, Psych: Negative for depression, anxiety, suicide ideation, homicidal ideation, and hallucinations, Allergy/Immunology: Negative for hives, rash, and allergies, Endocrine: Negative for neck swelling, polydipsia, polyuria, polyphagia, and marked weight changes, Hematologic/Lymphatic: Negative for swollen nodes, abnormal bleeding, and unusual bruising. Exam: 22:01 Constitutional: This is a well developed, well nourished patient who is awake, alert, mh7 and in no acute distress. Head/Face: Normocephalic, atraumatic. Eyes: Pupils equal round and reactive to light, extra-ocular motions intact. Lids and lashes normal. Conjunctiva and sclera are non-icteric and not injected. Cornea within normal limits. Periorbital areas with no swelling, redness, or edema. Neck: Trachea midline, no thyromegaly or masses palpated, and no cervical lymphadenopathy. Supple, full range of motion without nuchal rigidity, or vertebral point tenderness. No Meningismus. Chest/axilla: Normal chest wall appearance and motion. Nontender with no deformity. No lesions are appreciated. Cardiovascular: Regular rate and rhythm with a normal S1 and S2. No gallops, murmurs, or rubs. Normal PMI, no JVD. No pulse deficits. Respiratory: Lungs have equal breath sounds bilaterally, clear to auscultation and percussion. No rales, rhonchi or wheezes noted. No increased work of breathing, no retractions or nasal flaring. Abdomen/GI: Soft, non-tender, with normal bowel sounds. No distension or tympany. No guarding or rebound. No evidence of tenderness throughout. Back: No spinal tenderness. No costovertebral tenderness. Full range of motion. Skin: Warm, dry with normal turgor. Normal color with no rashes, no lesions, and no evidence of cellulitis. MS/ Extremity: Pulses equal, no cyanosis. Neurovascular intact. Full, normal range of motion. Neuro: Awake and alert, GCS 15, oriented to person, place, time, and situation. Cranial nerves II-XII grossly intact. Motor strength 5/5 in all extremities. Sensory grossly intact. Cerebellar exam normal. Normal gait. Psych: Awake, alert, with orientation to person, place and time. Behavior, mood, and affect are within normal limits. Vital Signs: 20:35 BP 119 / 77; Pulse 100; Resp 18 S; Temp 98.2(O); Pulse Ox 100% on R/A; Weight 63.5 kg ca1 (R); Height 5 ft. 11 in. (180.34 cm) (R); Pain 0/10; 23:05 BP 123 / 81; Pulse 86; Resp 20; Pulse Ox 98% on R/A; ak2 03/17 00:01 BP 113 / 68; Pulse 76; Resp 16; Pulse Ox 100% on R/A; ak2 03/16 20:35 Body Mass Index 19.53 (63.50 kg, 180.34 cm) ca1 MDM: 03/16 23:48 Differential diagnosis: gastritis, pancreatitis, Alcohol Intoxication, Vomiting. Data [facility] reviewed: vital signs, nurses notes, old medical records, lab test result(s), CBC, drug level(s), alcohol, electrolytes, urinalysis, urine drug screen. Data interpreted: Pulse oximetry: on room air is 98 %. Interpretation: normal. Counseling: I had a detailed discussion with the patient and/or guardian regarding: the historical points, exam findings, and any diagnostic results supporting the discharge/admit diagnosis, lab results, radiology results, the need for outpatient follow up, to return to the emergency department if symptoms worsen or persist or if there are any questions or concerns that arise at home. Response to treatment: the patient's symptoms have resolved after treatment, the patient's blood pressure is in an acceptable range, mental status has returned to baseline, the patient no longer shows bradycardia, the patient is not short of breath, the patient is not tachycardic, the patient's pain is gone, the patient's temperature has normalized. 23:51 Patient medically screened. [facility] 03/16 21:40 Order name: Acetaminophen [facility] 03/16 21:40 Order name: Basic Metabolic Panel [facility] 03/16 21:40 Order name: CBC with Diff [facility] 03/16 21:40 Order name: ETOH Level [facility] 03/16 21:40 Order name: Hepatic Function; Complete Time: 23:40 [facility] 03/16 21:40 Order name: PT-INR; Complete Time: 22:58 [facility] 03/16 21:40 Order name: Ptt, Activated; Complete Time: 22:58 [facility] 03/16 21:40 Order name: Salicylate; Complete Time: 23:40 [facility] 03/16 21:40 Order name: Urine Drug Screen; Complete Time: 22:58 [facility] 03/16 21:40 Order name: Lipase; Complete Time: 23:40 [facility] 03/16 21:41 Order name: Acetaminophen Level; Complete Time: 23:40 EDMS 03/16 21:42 Order name: Basic Metabolic Panel; Complete Time: 23:40 EDMS 03/16 21:42 Order name: CBC with Automated Diff; Complete Time: 22:58 EDMS 03/16 21:42 Order name: Alcohol Serum/Plasma; Complete Time: 22:58 EDAZ 03/16 21:40 Order name: EKG; Complete Time: 21:42 [facility] 03/16 21:40 Order name: EKG - Nurse/Tech [facility] 03/16 21:40 Order name: IV Saline Lock [facility] 03/16 21:40 Order name: Labs collected and sent [facility] 03/16 21:40 Order name: Suicide Screening ([place]) [facility] 03/16 21:40 Order name: Urine Dipstick-Ancillary (obtain specimen) [facility] 03/16 22:06 Order name: Urine Dipstick-Ancillary; Complete Time: 22:22 EDMS Administered Medications: 22:11 Drug: Banana Bag - (NS 0.9% 1000 ml, foLIC Acid 1 mg, Thiamine 100 mg, Multivitamin 1 ak2 amp) Route: IV; Rate: calculated rate; Site: right antecubital; 22:13 Drug: Zofran (Ondansetron) 4 mg Route: IVP; Site: right antecubital; ak2 22:13 Drug: Pepcid (famotidine) 20 mg Route: IVP; Site: right antecubital; ak2 22:14 Drug: NS 0.9% 1000 ml Route: IV; Rate: 1000 ml; Site: right antecubital; ak2 Disposition: 03/16/21 23:51 Discharged to Home. Impression: Alcohol abuse with intoxication, Vomiting. - Condition is Stable. - Discharge Instructions: Alcohol Intoxication, [id number], Nausea and Vomiting, Adult, [id number], Alcohol Abuse and Nutrition. - Prescriptions for Zofran ODT 4 mg Oral tablet,disintegrating - place 1 tablet by TRANSLINGUAL route every 8 hours As needed; 6 tablet. Pepcid 20 mg Oral Tablet - take 1 tablet by ORAL route every 12 hours for 5 days; 10 tablet. - Medication Reconciliation Form, Thank You Letter, Antibiotic Education, Prescription Opioid Use form. - Follow up: Private Physician; When: 1 - 2 days; Reason: Worsening of condition, Recheck today's complaints, Continuance of care, Re-evaluation by your physician. - Problem is an acute exacerbation. - Symptoms have improved. Signatures: Dispatcher [employer] EDMS Doris Guadarrama RN RN ca1 Geoffrey Hayes MD MD 7 Andrea Young2 Corrections: (The following items were deleted from the chart) 03/17 00:02 03/16 23:51 03/16/2021 23:51 Discharged to Home. Impression: Alcohol abuse with ak2 intoxication; Vomiting. Condition is Stable. Forms are Medication Reconciliation Form, Thank You Letter, Antibiotic Education, Prescription Opioid Use. Follow up: Private Physician; When: 1 - 2 days; Reason: Worsening of condition, Recheck today's complaints, Continuance of care, Re-evaluation by your physician. Problem is an acute exacerbation. Symptoms have improved. mh7
--- NOTE | 2021-03-16 23:51 | ER ---
Nurse's Notes [facility] Name: Philip Saldaña Age: 30 yrs Sex: Male : 1990 Arrival Date: 03/16/2021 Time: 20:31 Bed 14 Private MD: Diagnosis: Alcohol abuse with intoxication;Vomiting Presentation: 03/16 20:35 Chief complaint: Patient states: "same thing, different day" Reports nausea and ca1 vomiting since this morning. Been drinking Vodka last night and today at 1700. Coronavirus screen: Client denies travel out of the [place] in the last 14 days. nausea, vomiting. Client presents with at least one sign or symptom that may indicate coronavirus-19. Standard/surgical mask placed on the client. Provider contacted for isolation considerations. Ebola Screen: Patient negative for fever greater than or equal to 101.5 degrees Fahrenheit, and additional compatible Ebola Virus Disease symptoms Patient denies exposure to infectious person. Patient denies travel to an Ebola-affected area in the 21 days before illness onset. No symptoms or risks identified at this time. Initial Sepsis Screen: Does the patient meet any 2 criteria? No. Patient's initial sepsis screen is negative. Does the patient have a suspected source of infection? No. Patient's initial sepsis screen is negative. Risk Assessment: Do you want to hurt yourself or someone else? Patient reports no desire to harm self or others. Onset of symptoms was March 16, 2021. 20:35 Method Of Arrival: Ambulatory ca1 20:35 Acuity: KASSIDY 3 ca1 Triage Assessment: 20:49 General: Appears in no apparent distress. Behavior is calm, cooperative. Pain: Denies ak2 pain. GI: Reports nausea. Historical: - Allergies: 20:39 Demerol; ca1 20:39 Sulfa (Sulfonamide Antibiotics); ca1 - PMHx: 20:39 Alcoholism; Anxiety; Depression; hiatal hernia; HYPOGLYCEMIA; GERD; ca1 - Immunization history:: Client reports having NOT received the Covid vaccine. Flu vaccine is not up to date. - Social history:: Smoking status: Patient reports the use of cigarette tobacco products, smokes one pack cigarettes per day. Patient uses alcohol, on a daily basis. Vodka. Screenin:49 Abuse screen: Denies threats or abuse. Denies injuries from another. Nutritional ak2 screening: No deficits noted. Tuberculosis screening: No symptoms or risk factors identified. Fall Risk None identified. Vital Signs: 20:35 BP 119 / 77; Pulse 100; Resp 18 S; Temp 98.2(O); Pulse Ox 100% on R/A; Weight 63.5 kg ca1 (R); Height 5 ft. 11 in. (180.34 cm) (R); Pain 0/10; 23:05 BP 123 / 81; Pulse 86; Resp 20; Pulse Ox 98% on R/A; ak2 03/17 00:01 BP 113 / 68; Pulse 76; Resp 16; Pulse Ox 100% on R/A; ak2 03/16 20:35 Body Mass Index 19.53 (63.50 kg, 180.34 cm) ca1 ED Course: 03/16 20:31 Patient arrived in ED. bp1 20:38 Triage completed. ca1 20:39 Arm band placed on right wrist. ca1 20:46 Geoffrey Hayes MD is Attending Physician. [facility] 20:48 Andrea Young is Primary Nurse. ak2 20:49 No apparent distress. ak2 20:49 Patient has correct armband on for positive identification. Bed in low position. Call ak2 light in reach. 20:49 No provider procedures requiring assistance completed. ak2 03/17 00:02 IV discontinued. ak2 Administered Medications: 03/16 22:11 Drug: Banana Bag - (NS 0.9% 1000 ml, foLIC Acid 1 mg, Thiamine 100 mg, Multivitamin 1 ak2 amp) Route: IV; Rate: calculated rate; Site: right antecubital; 22:13 Drug: Zofran (Ondansetron) 4 mg Route: IVP; Site: right antecubital; ak2 22:13 Drug: Pepcid (famotidine) 20 mg Route: IVP; Site: right antecubital; ak2 22:14 Drug: NS 0.9% 1000 ml Route: IV; Rate: 1000 ml; Site: right antecubital; ak2 Outcome: 23:51 Discharge ordered by . [facility] 03/17 00:01 Discharged to home ambulatory. ak2 Condition: good Discharge instructions given to patient, family, Prescriptions given X 2. 00:02 Patient left the ED. ak2 Signatures: Doris Guadarrama RN RN ca1 Stacey Workman Maurice, MD MD mh7 Andrea Young mi2
[2021-03-17 00:27] VITALS: TEMP 98.2
[2021-03-17 00:31] VITALS: BP 113/68; O2SAT 100
--- NOTE | 2021-03-17 16:01 | EKG ---
Test Date: 2021-03-16 Test Time: 22:09:52 Splicer Machine Operator: MEASUREMENT RESULTS: Intervals: Rate: 91 NV: 142 QRSD: 92 QT: 344 QTc: 423 [place]: P: 75 NV: 142 QRS: 85 T: 69 INTERPRETIVE STATEMENTS: Normal sinus rhythm ST elevation, consider early repolarization, pericarditis, or injury Abnormal ECG Compared to ECG 01/29/2021 21:38:01 ST (T wave) deviation now present Electronically Signed On 03-17-21 15:59:58 CDT by Peter Banegas
== END 2021-03-17 00:02 | disposition home or self-care (01) ==
LOC: ER 20:30
DX: F10.229 Alcohol dependence with intoxication, unspecified (principal); F17.210 Nicotine dependence, cigarettes, uncomplicated; Z88.2 Allergy status to sulfonamides; Z88.5 Allergy status to narcotic agent
CPT/HCPCS: 36415; 80048; 80076; 80307; 80320; 80329; 81003; 83690; 85025; 85610; 85730; 93005; 96374; 96375; 99283; J2405; J3411; J7030

== ENCOUNTER 2021-03-27 13:04 | Emergency (ER) | payer SELFPAY ==
--- OUTSIDE RECORDS SUMMARY | 2021-03-27 13:06 | XMS REPORT | Continuity of Care Document ---
:1990 Author Organization [facility] t Address [address] [place] [address] Care Team Providers Name Role Phone [place]ton [...] Clinicians Facility Department ID 2021-01-15 2021-01-15 [place] [id number] 11:26:00 14:29:00 Jovi Renae [id number] [place] [id number] [place] [id number] [id number] 2021-01-14 2021-01-14 Emergency Symone Woods [facility] [id number] 17:42:00 22:07:00 Maya Renae [id number] [place] [id number] [place] [phone] [phone] 2020-12-29 Emergency Yoselyn [facility] [id number] 18:36:00 00:13:00 Evan Renae [id number] [place] [id number] [place] [phone] [id number] 2020-10-22 2020-10-22 [facility] [id number] 14:16:00 16:04:00 Zen Renae [id number] [place] [id number] [place] [phone] [phone] Results This patient has no known results.
[2021-03-27 13:37] LABS: Absolute Lymphocytes (CBC) 2.2 K/uL (0.7-4.9); Basophils % 0.6 % (0-1.3); Hematocrit 43.8 % (39.6-49.0); Lymphocytes % 26.3 % (15.3-44.8); MPV 7.6 fL (7.6-11.3); RBC Red Blood Cell Count 4.47 M/uL (4.33-5.43)
[2021-03-27 13:51] LABS: Protime INR 0.88
[2021-03-27] MEDS ORDERED: ONDANSETRON 4 MG/2 ML VIAL ONE (13:51)
[2021-03-27] MEDS ORDERED: DIAZEPAM 10 MG/2 ML INJ SYRINGE ONE ×2 (13:51→15:28)
[2021-03-27] MEDS ORDERED: FAMOTIDINE 20 MG/2 ML VIAL IV ONE (13:51)
[2021-03-27] MEDS ORDERED: FOLIC ACID 1 MG, MULTIVITAMINS INJ 10 ML, THIAMINE HCL 100 MG in NA CHLORIDE 0.9% 1,000 ML IV ONE (14:00)
[2021-03-27 14:17] LABS: ALT/SGPT 52 U/L (12-78); AST/SGOT 53 U/L (15-37); Albumin 3.9 g/dL (3.4-5.0); Alkaline Phosphatase 76 U/L (45-117); BUN Blood Urea Nitrogen 7 mg/dL (7-18); Bicarbonate 25 mmol/L (21-32); Bilirubin Direct 0.1 mg/dL (0-0.2); Bilirubin Total 0.3 mg/dL (0.2-1.0); Glucose Level 113 mg/dL (74-106); Potassium 3.9 mmol/L (3.5-5.1); Protein, Total 7.6 g/dL (6.4-8.2); Sodium Level 134 mmol/L (136-145)
[2021-03-27] MEDS ORDERED: DIPHENHYDRAMINE 50 MG/ML VIAL ONE (14:50)
[2021-03-27] MEDS ORDERED: METOCLOPRAMIDE 10 MG/2mL INJ ONE (14:50)
[2021-03-27] MEDS ORDERED: NA CHLORIDE 0.9% 50 ML ONE (14:50)
[2021-03-27] MEDS ORDERED: PROMETHAZINE INJ 25 MG/ML AMP ONE (17:15)
--- NOTE | 2021-03-27 18:21 | EDPHYS ---
Physician Documentation [facility] Name: Philip Saldaña Age: 30 yrs Sex: Male : 1990 Arrival Date: 03/27/2021 Time: 13:06 Bed 6 Private MD: ED Physician Markel Tanner HPI: 03/27 13:19 This 30 yrs old Male presents to ER via Unassigned with complaints of Alcohol jmm Withdrawal. 13:19 Associated signs and symptoms: Pertinent negatives: decreased level of consciousness, jmm depression, diarrhea, loss of consciousness, shortness of breath, visual hallucinations. This is a 30 year old male with a history of alcoholism that presents to the ED with complaints of vomiting. Most recent etoh was this morning. Denies fever. Mild abdominal pain upon vomiting. . Historical: - Allergies: 13:22 Demerol; ph 13:22 Sulfa (Sulfonamide Antibiotics); ph - PMHx: 13:22 Alcoholism; Anxiety; Depression; GERD; hiatal hernia; HYPOGLYCEMIA; ph - Immunization history:: Client reports having NOT received the Covid vaccine. - Social history:: Smoking status: Patient reports the use of cigarette tobacco products, smokes one pack cigarettes per day. Patient uses alcohol, patient/guardian reports recent binge of alcohol consumption. Patient/guardian denies using street drugs. ROS: 13:19 Constitutional: Negative for fever, chills, and weight loss, Cardiovascular: Negative jmm for chest pain, palpitations, and edema, Respiratory: Negative for shortness of breath, cough, wheezing, and pleuritic chest pain. 13:19 Abdomen/GI: Positive for abdominal pain, nausea and vomiting. 13:19 All other systems are negative. Exam: 13:19 Constitutional: This is a well developed, well nourished patient who is awake, alert, jmm and in no acute distress. Head/Face: atraumatic. Eyes: EOMI, no conjunctival erythema appreciated ENT: Moist Mucus Membranes Neck: Trachea midline, Supple Chest/axilla: Normal chest wall appearance and motion. Cardiovascular: Regular rate and rhythm. No edema appreciated Respiratory: Normal respirations, no respiratory distress appreciated Abdomen/GI: Non distended, soft Back: Normal ROM Skin: General appearance color normal MS/ Extremity: Moves all extremities, no obvious deformities appreciated, no edema noted to the lower extremities Neuro: Awake and alert, normal gait Psych: Behavior is normal, Mood is normal, Patient is cooperative and pleasant Vital Signs: 13:15 BP 117 / 76; Pulse 130; Resp 20; Temp 98.4; Pulse Ox 98% on R/A; Weight 63.5 kg; Height ph 5 ft. 11 in. (180.34 cm); 14:39 BP 110 / 79; Pulse 102; Resp 18; Pulse Ox 99% on R/A; ph 15:13 BP 110 / 67; Pulse 97; Resp 17 S; Pulse Ox 99% on R/A; jd3 16:22 BP 104 / 69; Pulse 81; Resp 16 S; Pulse Ox 98% on R/A; jd3 16:59 BP 111 / 71; Pulse 99; Resp 16 S; Pulse Ox 99% on R/A; jd3 18:03 BP 107 / 72; Pulse 90; Resp 16 S; Pulse Ox 97% on R/A; jd3 18:34 BP 108 / 64; Pulse 81; Resp 17 S; Pulse Ox 96% on R/A; jd3 13:15 Body Mass Index 19.53 (63.50 kg, 180.34 cm) ph MDM: 13:11 Patient medically screened. [facility] 18:19 Data reviewed: vital signs, nurses notes. Counseling: I had a detailed discussion with sigifredo the patient and/or guardian regarding: the historical points, exam findings, and any diagnostic results supporting the discharge/admit diagnosis, lab results, the need for outpatient follow up, to return to the emergency department if symptoms worsen or persist or if there are any questions or concerns that arise at home. 03/27 13:14 Order name: Acetaminophen; Complete Time: 14:24 [facility] 03/27 13:14 Order name: Basic Metabolic Panel; Complete Time: 14:24 [facility] 03/27 13:14 Order name: CBC with Diff; Complete Time: 14:24 [facility] 03/27 13:14 Order name: ETOH Level; Complete Time: 14:24 [facility] 03/27 13:14 Order name: Hepatic Function; Complete Time: 14:24 [facility] 03/27 13:14 Order name: PT-INR; Complete Time: 14:24 [facility] 03/27 13:14 Order name: Ptt, Activated; Complete Time: 14:24 [facility] 06/19 13:14 Order name: Salicylate; Complete Time: 15:06 [facility] 03/27 13:14 Order name: EKG; Complete Time: 13:15 [facility] 03/27 13:14 Order name: EKG - Nurse/Tech; Complete Time: 13:24 [facility] 03/27 13:14 Order name: IV Saline Lock; Complete Time: 13:24 [facility] 03/27 13:14 Order name: Labs collected and sent; Complete Time: 13:25 [facility] Administered Medications: 13:38 Drug: Pepcid (famotidine) 20 mg Route: IVP; Site: right forearm; jd3 14:30 Follow up: Response: No adverse reaction jd3 13:39 Drug: Zofran (Ondansetron) 4 mg Route: IVP; Site: right forearm; jd3 14:30 Follow up: Response: No adverse reaction jd3 13:39 Drug: Valium (diazepam) 5 mg Route: IVP; Site: right forearm; jd3 14:30 Follow up: Response: No adverse reaction jd3 14:08 Drug: Banana Bag - (NS 0.9% 1000 ml, foLIC Acid 1 mg, Thiamine 100 mg, Multivitamin 1 jd3 amp) Route: IV; Rate: calculated rate; Site: right forearm; 19:14 Follow up: Response: No adverse reaction; IV Status: Completed infusion jd3 14:39 Drug: Reglan (metoCLOPramide) 10 mg Route: IVP; Site: right forearm; ph 15:30 Follow up: Response: No adverse reaction jd3 14:39 Drug: diphenhydrAMINE 25 mg Route: IVP; Site: right forearm; ph 15:30 Follow up: Response: No adverse reaction jd3 15:12 Drug: Valium (diazepam) 5 mg Route: IVP; Site: right forearm; jd3 16:00 Follow up: Response: No adverse reaction jd3 16:58 Drug: Phenergan (promethazine) 12.5 mg Route: IVP; Site: right forearm; jd3 17:50 Follow up: Response: No adverse reaction jd3 Disposition: 03/27/21 18:20 Discharged to Home. Impression: Alcohol abuse. - Condition is Stable. - Discharge Instructions: Alcohol Abuse and Nutrition. - Medication Reconciliation Form, Thank You Letter, Antibiotic Education, Prescription Opioid Use form. - Follow up: Private Physician; When: 2 - 3 days; Reason: Recheck today's complaints, Continuance of care, Re-evaluation by your physician. Signatures: Dispatcher [employer] Adalberto Bundy PA PA jmm Hall, Patricia, RN RN Ganesh Day RN RN jd3 Corrections: (The following items were deleted from the chart) 13:28 13:14 Suicide Screening ([place]) ordered. sigifredo tolentino 19:13 18:20 03/27/2021 18:20 Discharged to Home. Impression: Alcohol abuse. Condition is jd3 Stable. Forms are Medication Reconciliation Form, Thank You Letter, Antibiotic Education, Prescription Opioid Use. Follow up: Private Physician; When: 2 - 3 days; Reason: Recheck today's complaints, Continuance of care, Re-evaluation by your physician. sigifredo
--- NOTE | 2021-03-27 18:21 | ER ---
Nurse's Notes [facility] [place] Name: Philip Saldaña Age: 30 yrs Sex: Male : 1990 Arrival Date: 03/27/2021 Time: 13:06 Bed 6 Private MD: Diagnosis: Alcohol abuse Presentation: 03/27 13:15 Chief complaint: Patient states: Is withdrawing from ETOH, reports that for the past ph week he has been drinking approx 4-6 small bottles of wine based liquor that he purchased at the convenient store, c/o fatigue, N/V, abdominal pain. States that he does not typically drink daily but binge drinks. Last drink was this morning. Coronavirus screen: Client denies travel out of the [place] in the last 14 days. At this time, the client does not indicate any symptoms associated with coronavirus-19. Ebola Screen: No symptoms or risks identified at this time. Initial Sepsis Screen: Does the patient meet any 2 criteria? No. Patient's initial sepsis screen is negative. Does the patient have a suspected source of infection? No. Patient's initial sepsis screen is negative. Risk Assessment: Do you want to hurt yourself or someone else? Patient reports no desire to harm self or others. Onset of symptoms was March 27, 2021. 13:15 Method Of Arrival: Ambulatory ph 13:15 Acuity: KASSIDY 2 ph Historical: - Allergies: 13:22 Demerol; ph 13:22 Sulfa (Sulfonamide Antibiotics); ph - PMHx: 13:22 Alcoholism; Anxiety; Depression; GERD; hiatal hernia; HYPOGLYCEMIA; ph - Immunization history:: Client reports having NOT received the Covid vaccine. - Social history:: Smoking status: Patient reports the use of cigarette tobacco products, smokes one pack cigarettes per day. Patient uses alcohol, patient/guardian reports recent binge of alcohol consumption. Patient/guardian denies using street drugs. Screenin:22 Abuse screen: Denies threats or abuse. Denies injuries from another. Nutritional ph screening: No deficits noted. Tuberculosis screening: No symptoms or risk factors identified. Fall Risk None identified. Assessment: 13:23 General: Appears in no apparent distress. uncomfortable, slender, well groomed, ph Behavior is cooperative, appropriate for age, anxious. Pain: Complains of pain in abdomen. Neuro: Level of Consciousness is awake, alert, obeys commands, Oriented to person, place, time, situation. Cardiovascular: Reports fatigue, lightheadedness, nausea, vomiting, Denies chest pain. Respiratory: Airway is patent Respiratory effort is even, unlabored. GI: Reports lower abdominal pain, upper abdominal pain, nausea, vomiting. Derm: Skin is intact, Skin is pink, warm \T\ dry. Musculoskeletal: Circulation, motion, and sensation intact. Range of motion: intact in all extremities. 14:20 Reassessment: Patient appears in no apparent distress at this time. No changes from jd3 previously documented assessment. Patient and/or family updated on plan of care and expected duration. Pain level reassessed. Patient is alert, oriented x 3, equal unlabored respirations, skin warm/dry/pink. 15:13 Reassessment: Patient appears in no apparent distress at this time. No changes from jd3 previously documented assessment. Patient and/or family updated on plan of care and expected duration. Pain level reassessed. Patient is alert, oriented x 3, equal unlabored respirations, skin warm/dry/pink. 16:21 Reassessment: Patient appears in no apparent distress at this time. No changes from jd3 previously documented assessment. Patient and/or family updated on plan of care and expected duration. Pain level reassessed. Patient is alert, oriented x 3, equal unlabored respirations, skin warm/dry/pink. 16:59 Reassessment: Patient and/or family updated on plan of care and expected duration. Pain jd3 level reassessed. Patient is alert, oriented x 3, equal unlabored respirations, skin warm/dry/pink. pt reporting nausea, provider notified. medicated as ordered. 18:03 Reassessment: Patient appears in no apparent distress at this time. No changes from jd3 previously documented assessment. Patient and/or family updated on plan of care and expected duration. Pain level reassessed. Patient is alert, oriented x 3, equal unlabored respirations, skin warm/dry/pink. 18:32 Reassessment: Patient appears in no apparent distress at this time. Patient and/or jd3 family updated on plan of care and expected duration. Pain level reassessed. Patient is alert, oriented x 3, equal unlabored respirations, skin warm/dry/pink. pt reporting felling better. reports understanding of plan of care for discharge. pt resting in bed with eyes closed. discharge pending IV fluids. 19:13 Reassessment: Patient appears in no apparent distress at this time. Patient and/or jd3 family updated on plan of care and expected duration. Pain level reassessed. Patient is alert, oriented x 3, equal unlabored respirations, skin warm/dry/pink. Patient states feeling better. Vital Signs: 13:15 BP 117 / 76; Pulse 130; Resp 20; Temp 98.4; Pulse Ox 98% on R/A; Weight 63.5 kg; Height ph 5 ft. 11 in. (180.34 cm); 14:39 BP 110 / 79; Pulse 102; Resp 18; Pulse Ox 99% on R/A; ph 15:13 BP 110 / 67; Pulse 97; Resp 17 S; Pulse Ox 99% on R/A; jd3 16:22 BP 104 / 69; Pulse 81; Resp 16 S; Pulse Ox 98% on R/A; jd3 16:59 BP 111 / 71; Pulse 99; Resp 16 S; Pulse Ox 99% on R/A; jd3 18:03 BP 107 / 72; Pulse 90; Resp 16 S; Pulse Ox 97% on R/A; jd3 18:34 BP 108 / 64; Pulse 81; Resp 17 S; Pulse Ox 96% on R/A; jd3 13:15 Body Mass Index 19.53 (63.50 kg, 180.34 cm) ph ED Course: 13:06 Patient arrived in ED. mr 13:11 Emma Dang, CRIS is Primary Nurse. ph 13:11 Adalberto Dill PA is PHCP. [facility] 13:11 Markel Tanner MD is Attending Physician. [facility] 13:21 Triage completed. ph 13:23 Arm band placed on Patient placed in an exam room, on a stretcher, on cardiac technologist, ph on pulse oximetry. 13:23 Patient has correct armband on for positive identification. Placed in gown. Bed in low ph position. Call light in reach. front office attendant on. Pulse ox on. NIBP on. Door closed. Noise minimized. Warm blanket given. 13:36 Missed attempt(s): 18 gauge in right antecubital area. Bleeding controlled, band aid jd3 applied, catheter tip intact. 13:39 Inserted saline lock: 18 gauge in right forearm, using aseptic technique. Blood jd3 collected. 19:13 No provider procedures requiring assistance completed. IV discontinued, intact, jd3 bleeding controlled, No redness/swelling at site. Pressure dressing applied. Administered Medications: 13:38 Drug: Pepcid (famotidine) 20 mg Route: IVP; Site: right forearm; jd3 14:30 Follow up: Response: No adverse reaction jd3 13:39 Drug: Zofran (Ondansetron) 4 mg Route: IVP; Site: right forearm; jd3 14:30 Follow up: Response: No adverse reaction jd3 13:39 Drug: Valium (diazepam) 5 mg Route: IVP; Site: right forearm; jd3 14:30 Follow up: Response: No adverse reaction jd3 14:08 Drug: Banana Bag - (NS 0.9% 1000 ml, foLIC Acid 1 mg, Thiamine 100 mg, Multivitamin 1 jd3 amp) Route: IV; Rate: calculated rate; Site: right forearm; 19:14 Follow up: Response: No adverse reaction; IV Status: Completed infusion jd3 14:39 Drug: Reglan (metoCLOPramide) 10 mg Route: IVP; Site: right forearm; ph 15:30 Follow up: Response: No adverse reaction jd3 14:39 Drug: diphenhydrAMINE 25 mg Route: IVP; Site: right forearm; ph 15:30 Follow up: Response: No adverse reaction jd3 15:12 Drug: Valium (diazepam) 5 mg Route: IVP; Site: right forearm; jd3 16:00 Follow up: Response: No adverse reaction jd3 16:58 Drug: Phenergan (promethazine) 12.5 mg Route: IVP; Site: right forearm; jd3 17:50 Follow up: Response: No adverse reaction jd3 Outcome: 18:20 Discharge ordered by . sigifredo 19:13 Discharged to home ambulatory, with friend. jd3 19:13 Condition: stable 19:13 Discharge instructions given to patient, Instructed on discharge instructions, follow up and referral plans. Demonstrated understanding of instructions, follow-up care. 19:13 Patient left the ED. jd3 Signatures: Adalberto Dill PA PA jmm Rivera, Mary mr Hall, Patricia, RN RN Ganesh Day RN RN jd3 Corrections: (The following items were deleted from the chart) 16:59 16:59 Reassessment: pt reporting nausea, provider notified. medicated as ordered. rajan jd3
[2021-03-27 19:37] VITALS: TEMP 98.4
[2021-03-27 19:46] VITALS: BP 108/64; O2SAT 96
--- NOTE | 2021-03-29 08:26 | EKG ---
Test Date: 2021-03-27 Test Time: 13:24:22 Lockstitch Zipper Setter: MARGO MEASUREMENT RESULTS: Intervals: Rate: 141 MS: 134 QRSD: 92 QT: 276 QTc: 422 Alexander: P: 77 MS: 134 QRS: 88 T: 47 INTERPRETIVE STATEMENTS: Sinus tachycardia Otherwise normal ECG Compared to ECG 03/16/2021 22:09:52 Sinus rhythm no longer present ST (T wave) deviation no longer present Electronically Signed On 03-29-21 08:24:11 CDT by Peter Banegas
== END 2021-03-27 19:13 | disposition home or self-care (01) ==
LOC: ER 13:04
DX: F10.20 Alcohol dependence, uncomplicated (principal); F17.210 Nicotine dependence, cigarettes, uncomplicated; Z88.2 Allergy status to sulfonamides; Z88.5 Allergy status to narcotic agent
CPT/HCPCS: 36415; 80048; 80076; 80320; 80329; 85025; 85610; 85730; 93005; 96365; 96366; 96375; 99284; J1200; J2405; J2550; J2765; J3360; J3411; J7030

== ENCOUNTER 2021-05-01 16:07 | Emergency (ER) | payer SELFPAY ==
--- OUTSIDE RECORDS SUMMARY | 2021-05-01 16:09 | XMS REPORT | Continuity of Care Document ---
:1990 Author Organization [facility] t Address [address] [place] [address] Care Team Providers Name Role Phone Wilton PEARCE Attending Clinician Doctor Unassigned, Name Attending Clinician Unavailable Maya Belcher Attending Clinician Yoselyn CLINICAL DATA RESEARCH, F Attending Clinician Singer PEREZ Attending Clinician Problems This patient has no known problems. Allergies, Adverse Reactions, Alerts This patient has no known allergies or adverse reactions. Medications This patient has no known medications. Procedures This patient has no known procedures. Encounters Start End Encounter Admission Attending Care Care Encounter Source Date/Time Date/Time Type Type Clinicians Facility Department ID 2021-04-12 2021-04-12 Emergency Wilton [facility] [id number] 13:47:00 20:35:00 Jovi Renae [id number] [place] [id number] [place] [id number] 2021-04-12 2021-04-12 Orders Doctor STEIN [id number] 00:00:00 00:00:00 Only UnassignedTIGRE [id number] [place] [facility] [id number] 2021-01-15 2021-01-15 Emergency Wilton [facility] [id number] 11:26:00 14:29:00 Jovi Renae [id number] [place] [id number] [place] [id number] 2021-01-14 2021-01-14 Emergency Symone Woods [facility] [id number] 17:42:00 22:07:00 Maya Gonzalezton [id number] [place] [id number] [place] [id number] 2020-12-28 2020-12-29 Emergency Yoselyn, [facility] [id number] 18:36:00 00:13:00 Evan Renae [id number] [place] [id number] [place] [id number] 2020-10-22 2020-10-22 Emergency Velazquez, [facility] [id number] 14:16:00 16:04:00 Zen Renae [id number] [place] [id number] [place] [id number] Results This patient has no known results.
[2021-05-01 21:04] LABS: Absolute Lymphocytes (CBC) 1.9 K/uL (0.7-4.9); Basophils % 0.5 % (0-1.3); Hematocrit 39.9 % (39.6-49.0); Lymphocytes % 26.2 % (15.3-44.8); MPV 8.8 fL (7.6-11.3); RBC Red Blood Cell Count 4.12 M/uL (4.33-5.43)
--- NOTE | 2021-05-01 21:12 | RAD REPORT ---
EXAM DESCRIPTION: CT - Abdomen Pelvis W Contrast - 05/01/2021 9:01 pm CLINICAL HISTORY: Abdominal pain COMPARISON: none. TECHNIQUE: Computed axial tomography of the abdomen pelvis was obtained. 100 cc Isovue-300 was admin istered intravenously. Oral contrast was not requested which limits evaluation of bowel. All CT scans are performed using dose optimization technique as appropriate and may include automated exposure control or mA/KV adjustment according to patient size. FINDINGS: The liver, spleen, pancreas, adrenal and kidneys appear unremarkable. There is no evidence of diverticulitis. Normal appendix Trace amount of free fluid within the pelvis. Small hiatal hernia Apparent bladder wall thickening IMPRESSION: Trace amount of free fluid within the pelvis. A para bladder wall thickening may be secondary to incomplete distention or inflammation
[2021-05-01 21:13] LABS: Protime INR 0.89
[2021-05-01] MEDS ORDERED: ONDANSETRON 4 MG/2 ML VIAL ONE (21:51)
[2021-05-01] MEDS ORDERED: NA CHLORIDE 0.9% 1,000 ML ONE ×2 (21:51→23:14)
[2021-05-01] MEDS ORDERED: DICYCLOMINE HCL 10 MG CAP ONE (21:51)
[2021-05-01] MEDS ORDERED: PANTOPRAZOLE 40 MG INJ ONE (21:51)
[2021-05-01 22:15] LABS: Urine Blood Negative (Negative); Urine Glucose Negative (Negative); Urine Protein Negative (Negative)
[2021-05-01 22:37] LABS: Barbiturates NEGATIVE (NEGATIVE); Benzodiazepines POSITIVE (NEGATIVE); Cocaine NEGATIVE (NEGATIVE); METHAMPHETAM NEGATIVE (NEGATIVE); Methadone NEGATIVE (NEGATIVE); Opiates NEGATIVE (NEGATIVE); Phencyclidine NEGATIVE (NEGATIVE); THC Cannibis NEGATIVE (NEGATIVE)
[2021-05-01 23:15] LABS: ALT/SGPT 41 U/L (12-78); AST/SGOT 31 U/L (15-37); Albumin 3.9 g/dL (3.4-5.0); Alkaline Phosphatase 72 U/L (45-117); BUN Blood Urea Nitrogen 7 mg/dL (7-18); Bicarbonate 31 mmol/L (21-32); Bilirubin Direct 0.2 mg/dL (0-0.2); Bilirubin Total 0.6 mg/dL (0.2-1.0); Glucose Level 88 mg/dL (74-106); Potassium 4.2 mmol/L (3.5-5.1); Protein, Total 7.5 g/dL (6.4-8.2); Sodium Level 140 mmol/L (136-145)
--- NOTE | 2021-05-02 00:13 | EDPHYS ---
Physician Documentation [facility] Name: Philip Saldaña Age: 31 yrs Sex: Male : 1990 Arrival Date: 05/01/2021 Time: 16:08 Bed 19 Private MD: ED Physician Geoffrey Hayes HPI: 05/01 20:10 This 31 yrs old Male presents to ER via EMS with complaints of Alcohol cp Withdrawal. 20:10 The patient presents with abdominal pain in the epigastric area, mid abdomen. cp 20:10 Onset: The symptoms/episode began/occurred 2 day(s) ago. cp 20:10 The patient presents to the emergency department with nausea, with "dry heaves", cp vomiting, that is continuous, described as bilious, blood streaked. Patient reports he is a resident of [facility] for alcohol detoxification. Patient complains of nausea vomiting inability to tolerate any food or fluids for the past 2 days. Patient reports his last drink was 5 days ago. Patient also reports noticing some blood in his vomitus today. Denies any blood in his stool.. Historical: - Allergies: 16:41 Demerol; kg 16:41 Sulfa (Sulfonamide Antibiotics); kg - Home Meds: 16:43 fluoxetine 20 mg Oral cap 1 cap once daily [Active]; librium 25 mg daily [Active]; kg - PMHx: 16:41 Alcoholism; Anxiety; Depression; GERD; hiatal hernia; HYPOGLYCEMIA; kg - PSHx: 16:41 septial sx; kg - Immunization history:: Adult Immunizations not up to date, Client reports having NOT received the Covid vaccine. - Social history:: Smoking status: Patient reports the use of cigarette tobacco products, denies chronic smoking, but will smoke occasionally, Patient uses alcohol. ROS: 05/02 20:15 Constitutional: Positive for poor PO intake, Negative for body aches, chills, fever. cp 20:15 Eyes: Negative for injury, pain, redness, and discharge. cp 20:15 Cardiovascular: Negative for chest pain, palpitations. 20:15 Respiratory: Negative for cough, shortness of breath, wheezing. 20:15 Abdomen/GI: Positive for abdominal pain, nausea and vomiting, constipation, anorexia, hematemesis, Negative for diarrhea, black/tarry stool, rectal bleeding. 20:15 Neuro: Negative for altered mental status, headache, syncope, weakness. 20:15 All other systems are negative. Exam: 05/01 20:20 Constitutional: The patient appears in no acute distress, alert, awake, cp non-diaphoretic, non-toxic, well developed, well nourished. 20:20 Head/Face: Normocephalic, atraumatic. cp 20:20 Eyes: Periorbital structures: appear normal, Pupils: equal, round, and reactive to light and accomodation, Extraocular movements: intact throughout, Conjunctiva: normal, no exudate, no injection, Sclera: no appreciated abnormality, Lids and lashes: appear normal, bilaterally. 20:20 ENT: External ear(s): are unremarkable, Nose: is normal, Mouth: Lips: moist, Oral mucosa: pink and intact, moist, Posterior pharynx: Airway: no evidence of obstruction, patent. 20:20 Neck: ROM/movement: is normal, is supple, without pain, no range of motions limitations. 20:20 Chest/axilla: Inspection: normal, Palpation: is normal, no crepitus, no tenderness. 20:20 Cardiovascular: Rate: normal, Rhythm: regular, Edema: is not appreciated, JVD: is not appreciated. 20:20 Respiratory: the patient does not display signs of respiratory distress, Respirations: normal, no use of accessory muscles, no retractions, labored breathing, is not present, Breath sounds: are clear throughout, no decreased breath sounds, no stridor, no wheezing. 20:20 Abdomen/GI: Inspection: abdomen appears normal, Bowel sounds: active, all quadrants, Palpation: soft, in all quadrants, moderate abdominal tenderness, in the epigastric area, rebound tenderness, is not appreciated, voluntary guarding, is elicited in the epigastric area. 20:20 Neuro: Orientation: to person, place \\T\\ time. Mentation: is normal, Motor: moves all fours, strength is normal. 23:05 ECG was reviewed by the Attending Physician. cp Vital Signs: 16:37 BP 106 / 77; Pulse 89; Resp 20; Temp 97.7(TE); Pulse Ox 99% on R/A; Weight 67.59 kg kg (M); Height 5 ft. 11 in. (180.34 cm) (R); Pain 5/10; 16:37 Body Mass Index 20.78 (67.59 kg, 180.34 cm) kg MDM: 20:03 Patient medically screened. 05/02 00:12 Data reviewed: vital signs, nurses notes, lab test result(s), EKG, radiologic studies, cp CT scan. 00:12 Test interpretation: by ED physician or midlevel provider: ECG. Counseling: I had a cp detailed discussion with the patient and/or guardian regarding: the historical points, exam findings, and any diagnostic results supporting the discharge/admit diagnosis, lab results, radiology results, the need for outpatient follow up, a vehicle monitor technician, to return to the emergency department if symptoms worsen or persist or if there are any questions or concerns that arise at home. Response to treatment: the patient's symptoms have markedly improved after treatment, patient is well hydrated. VSS. Nausea and pain markedly improved, vomiting resolved. Will discharge to detox center for continued monitoring. 05/01 20:04 Order name: Acetaminophen 05/01 20:04 Order name: Basic Metabolic Panel 05/01 20:04 Order name: CBC with Diff; Complete Time: 21:19 05/01 23:37 Interpretation: Normal except: RBC 4.12; EOSA 0.7; EOSINOPHIL % 9.3. 05/01 20:04 Order name: ETOH Level; Complete Time: 22:06 05/01 20:04 Order name: Hepatic Function; Complete Time: 23:36 05/01 23:36 Interpretation: Normal except: GLOB 3.6. 05/01 20:04 Order name: PT-INR; Complete Time: 21:19 05/01 20:04 Order name: Ptt, Activated; Complete Time: 21:19 05/01 20:04 Order name: Salicylate; Complete Time: 22:06 05/01 23:37 Interpretation: PRINCESS < 1.7; Reviewed. 05/01 20:04 Order name: Urine Drug Screen; Complete Time: 22:55 05/01 22:55 Interpretation: Normal except: BZO POSITIVE. 05/01 20:04 Order name: Acetaminophen Level; Complete Time: 23:36 EDMS 05/01 23:36 Interpretation: ACETA < 2.0; Reviewed. 05/01 20:04 Order name: Basic Metabolic Panel; Complete Time: 23:36 EDMS 05/01 23:37 Interpretation: Reviewed. 05/01 21:20 Order name: Urine Microscopic Only EDMS 05/01 22:15 Order name: Urine Dipstick-Ancillary; Complete Time: 22:55 EDMS 05/01 22:56 Interpretation: Reviewed. 05/01 20:04 Order name: EKG; Complete Time: 20:05 cp 05/01 20:04 Order name: EKG - Nurse/Tech; Complete Time: 23:25 cp 05/01 20:04 Order name: IV Saline Lock; Complete Time: 21:23 cp 05/01 20:04 Order name: Labs collected and sent; Complete Time: 21:23 05/01 20:04 Order name: Suicide Screening ([place]); Complete Time: 23:25 cp 05/01 20:04 Order name: Urine Dipstick-Ancillary (obtain specimen); Complete Time: 22:18 cp 05/01 20:12 Order name: CT Abd/Pelvis - IV Contrast Only; Complete Time: 21:19 05/01 22:56 Interpretation: Report reviewed. 05/01 21:20 Order name: PO challenge; Complete Time: 22:18 cp EC/24 23:05 Rate is 52 beats/min. Rhythm is regular. CA interval is normal. QRS interval is normal. cp QT interval is normal. Interpreted by me. Reviewed by me. Administered Medications: 21:35 Drug: NS 0.9% 1000 ml Route: IV; Rate: 1 bolus; Site: right antecubital; bs2 22:18 Follow up: IV Status: Completed infusion bs2 21:35 Drug: Zofran (Ondansetron) 4 mg Route: IVP; Site: right antecubital; bs2 22:18 Follow up: Response: No adverse reaction bs2 21:35 Drug: ProTONIX (pantoprazole) 40 mg Route: IVP; Site: right antecubital; bs2 22:18 Follow up: Response: No adverse reaction bs2 22:17 Drug: Bentyl (dicyclomine) 20 mg Route: PO; bs2 22:27 Follow up: Response: No adverse reaction bs2 22:50 Drug: NS 0.9% 1000 ml Route: IV; Rate: 1 bolus; Site: left antecubital; bs2 05/02 00:22 Drug: Zofran (Ondansetron) 4 mg Route: IVP; Site: left antecubital; bs2 Disposition: 05:59 Co-signature as Attending Physician, Geoffrey Hayes MD. [email or web address] Disposition Summary: 05/02/21 00:12 Discharge Ordered Location: Home cp Problem: new cp Symptoms: have improved cp Condition: Stable cp Diagnosis - Upper abdominal pain, unspecified cp - Nausea with vomiting, unspecified cp - Alcohol dependence with withdrawal cp Followup: cp - With: Rusty Mcdonald MD - When: 2 - 3 days - Reason: Recheck today's complaints Discharge Instructions: - Discharge Summary Sheet cp - Abdominal Pain, Adult cp - Gastritis, Adult cp - Nausea and Vomiting, Adult cp - Alcohol Withdrawal Syndrome cp - Alcohol Abuse and Nutrition cp Forms: - Medication Reconciliation Form cp - Thank You Letter cp - Antibiotic Education cp - Prescription Opioid Use cp Prescriptions: - Zofran 4 mg Oral Tablet - take 1 tablet by ORAL route every 12 hours As needed; 20 tablet; Refills: 0, cp Product Selection Permitted - Protonix 40 mg Oral Tablet - take 1 tablet by ORAL route once daily; 30 tablet; Refills: 0, Product cp Selection Permitted Signatures: Dispatcher [employer] EDMS Fco Landaverde PA PA cp Geoffrey Hayes MD MD 7 Nicole Spears, RN RN kg Maliha Wills RN RN bs2 Corrections: (The following items were deleted from the chart) 05/01 21:36 21:20 UA MICROSCOPIC+U.LAB.BRZ ordered. EDMS EDMS 23:37 23:37 Normal except: RBC 4.12. cp cp
--- NOTE | 2021-05-02 00:13 | ER ---
Nurse's Notes [facility] Name: Philip Saldaña Age: 31 yrs Sex: Male : 1990 Arrival Date: 05/01/2021 Time: 16:08 Bed 19 Private MD: Diagnosis: Upper abdominal pain, unspecified;Nausea with vomiting, unspecified;Alcohol dependence with withdrawal Presentation: 05/01 16:37 Chief complaint: Patient states: Nausea vomiting x 2 days. Pt stated he saw dark red kg and bright blood in emesis. Pt also complains of being constipated. Pt is detoxing from alcohol at [facility], today is day 5. Coronavirus screen: Client denies travel out of the [place] in the last 14 days. Client indicates they have traveled out of the [place] in the last 14 days. At this time, unable to obtain information related to travel outside the [place] At this time, the client does not indicate any symptoms associated with coronavirus-19. Ebola Screen: Patient negative for fever greater than or equal to 101.5 degrees Fahrenheit, and additional compatible Ebola Virus Disease symptoms Patient denies exposure to infectious person. Patient denies travel to an Ebola-affected area in the 21 days before illness onset. Initial Sepsis Screen: Does the patient meet any 2 criteria? No. Patient's initial sepsis screen is negative. Does the patient have a suspected source of infection? No. Patient's initial sepsis screen is negative. Risk Assessment: Do you want to hurt yourself or someone else? Patient reports no desire to harm self or others. Onset of symptoms was April 30, 2021. 16:37 Method Of Arrival: EMS: [facility] kg 16:37 Acuity: KASSIDY 3 kg Triage Assessment: 16:41 General: Appears in no apparent distress. Behavior is calm, cooperative, appropriate kg for age, quiet. Pain: Complains of pain in abdomen Pain radiates to nostrals, throat Pain currently is 7 out of 10 on a pain scale. at worst was 9 out of 10 on a pain scale. level that patient reports is acceptable is 6 out of 10 on a pain scale. Historical: - Allergies: 16:41 Demerol; kg 16:41 Sulfa (Sulfonamide Antibiotics); kg - Home Meds: 16:43 fluoxetine 20 mg Oral cap 1 cap once daily [Active]; librium 25 mg daily [Active]; kg - PMHx: 16:41 Alcoholism; Anxiety; Depression; GERD; hiatal hernia; HYPOGLYCEMIA; kg - PSHx: 16:41 septial sx; kg - Immunization history:: Adult Immunizations not up to date, Client reports having NOT received the Covid vaccine. - Social history:: Smoking status: Patient reports the use of cigarette tobacco products, denies chronic smoking, but will smoke occasionally, Patient uses alcohol. Screenin:43 Abuse screen: Denies threats or abuse. Denies injuries from another. Nutritional kg screening: No deficits noted. Tuberculosis screening: No symptoms or risk factors identified. Fall Risk None identified. Assessment: 20:00 General: Appears uncomfortable, slender, well groomed, well developed, well nourished, bs2 Behavior is cooperative, appropriate for age, anxious. Pain: Complains of pain in abdomen Pain currently is 8 out of 10 on a pain scale. Neuro: No deficits noted. Cardiovascular: No deficits noted. Respiratory: No deficits noted. GI: Abdomen is flat, non-distended, Bowel sounds present X 4 quads. Abd is soft X 4 quads Abdomen is tender to palpation in right lower quadrant and left lower quadrant Reports diarrhea, intolerance of fluids, intolerance of food, nausea, vomiting. : No signs and/or symptoms were reported regarding the genitourinary system. EENT: No signs and/or symptoms were reported regarding the EENT system. Derm: No signs and/or symptoms reported regarding the dermatologic system. Vital Signs: 16:37 BP 106 / 77; Pulse 89; Resp 20; Temp 97.7(TE); Pulse Ox 99% on R/A; Weight 67.59 kg kg (M); Height 5 ft. 11 in. (180.34 cm) (R); Pain 5/10; 16:37 Body Mass Index 20.78 (67.59 kg, 180.34 cm) kg ED Course: 16:08 Patient arrived in ED. ds1 16:41 Triage completed. kg 16:41 Arm band placed on. kg 16:43 Patient has correct armband on for positive identification. kg 20:00 Pulse ox on. NIBP on. Warm blanket given. bs2 20:02 Fco Landaverde PA is PHCP. cp 20:02 Geoffrey Hayes MD is Attending Physician. cp 20:43 Maliha Wills, CRIS is Primary Nurse. bs2 20:53 Initial lab(s) drawn, by me, sent to lab. Inserted saline lock: 20 gauge in left tt3 antecubital area, using aseptic technique. Blood collected. 21:02 CT Abd/Pelvis - IV Contrast Only In Process Unspecified. EDMS 21:23 Basic Metabolic Panel Sent. bs2 21:23 Acetaminophen Sent. bs2 21:23 Hepatic Function Sent. bs2 21:23 Urine Drug Screen Sent. bs2 22:18 Acetaminophen Level Sent. bs2 22:18 Basic Metabolic Panel Sent. bs2 23:59 Rusty Mcdonald MD is Referral Physician. cp 05/02 00:45 No provider procedures requiring assistance completed. IV discontinued, intact, bs2 bleeding controlled, No redness/swelling at site. Administered Medications: 05/01 21:35 Drug: NS 0.9% 1000 ml Route: IV; Rate: 1 bolus; Site: right antecubital; bs2 22:18 Follow up: IV Status: Completed infusion bs2 21:35 Drug: Zofran (Ondansetron) 4 mg Route: IVP; Site: right antecubital; bs2 22:18 Follow up: Response: No adverse reaction bs2 21:35 Drug: ProTONIX (pantoprazole) 40 mg Route: IVP; Site: right antecubital; bs2 22:18 Follow up: Response: No adverse reaction bs2 22:17 Drug: Bentyl (dicyclomine) 20 mg Route: PO; bs2 22:27 Follow up: Response: No adverse reaction bs2 22:50 Drug: NS 0.9% 1000 ml Route: IV; Rate: 1 bolus; Site: left antecubital; bs2 05/02 00:22 Drug: Zofran (Ondansetron) 4 mg Route: IVP; Site: left antecubital; bs2 Outcome: 00:12 Discharge ordered by . cp 00:45 Discharged to home ambulatory. bs2 00:45 Condition: improved 00:45 Discharge instructions given to patient, Instructed on discharge instructions, follow up and referral plans. medication usage, Demonstrated understanding of instructions, follow-up care, medications, Prescriptions given X 2. 00:46 Patient left the ED. bs2 Signatures: Dispatcher [facility] Avinash Angy ds1 Fco Landaverde PA PA cp Trim, Tyler tt3 Nicole Spears, RN RN Maliha Mary RN RN bs2 Corrections: (The following items were deleted from the chart) 05/01 21:03 21:02 Inserted saline lock: 20 gauge in left antecubital area, using aseptic technique. tt3 Blood collected. tt3 21:03 21:02 Initial lab(s) drawn, by me, sent to lab. tt3 tt3
[2021-05-02] MEDS ORDERED: ONDANSETRON 4 MG/2 ML VIAL ONE (00:23)
[2021-05-02 00:26] LABS: Urine Bacteria <20 /HPF (NONE SEEN); Urine RBC <5 /HPF (NONE SEEN)
[2021-05-02 01:01] VITALS: BP 106/77; TEMP 97.7; O2SAT 99
== END 2021-05-02 00:46 | disposition home or self-care (01) ==
LOC: ER 16:07
DX: F10.239 Alcohol dependence with withdrawal, unspecified (principal); R11.2 Nausea with vomiting, unspecified; F17.210 Nicotine dependence, cigarettes, uncomplicated; Z88.2 Allergy status to sulfonamides; Z88.5 Allergy status to narcotic agent
CPT/HCPCS: 36415; 74177; 80048; 80076; 80307; 80320; 80329; 81003; 81015; 82565; 85025; 85610; 85730; 93005; 99284; C9113; J2405; J7030; Q9967

== ENCOUNTER 2024-09-19 10:02 | Day surgery (SDC) | payer BC ==
[2024-09-16 12:05] LABS: Anion Gap 6.1 mEq/L (5.0-15.0); Potassium 4.1 mEq/L (3.5-5.1)
[2024-09-19] MEDS ORDERED: Ringers Lactate 1,000 ML IV ONE (10:17)
[2024-09-19] MEDS ORDERED: OXYMETAZOLINE HCL 0.05% 15ML NAS ONE ×2 (10:38→14:08)
[2024-09-19] MEDS ORDERED: BACITRACIN OINTMENT 14 GM TUBE TOP ONE (10:38)
[2024-09-19] MEDS ORDERED: ONDANSETRON 4 MG/2 ML VIAL ONE (10:52)
[2024-09-19] MEDS ORDERED: FENTANYL CITR 100 MCG/2 ML ONE ×3 (10:52→15:19)
[2024-09-19] MEDS ORDERED: dexAMETHasone 10 MG/ML VIAL ONE ×2 (10:52→13:04)
[2024-09-19] MEDS ORDERED: propofoL 200 MG/20 ML VIAL IV ONE (10:52)
[2024-09-19] MEDS ORDERED: ROCURONIUM 50 MG/5 ML VIAL IV ONE (10:52)
[2024-09-19] MEDS ORDERED: MIDAZOLAM HCL 2 MG/2 ML INJ ONE (10:52)
[2024-09-19] MEDS ORDERED: LIDOCAINE 1% MPF 5 ML VIAL ONE (10:52)
[2024-09-19] MEDS ORDERED: NA CHLORIDE 0.9% 250 ML ONE (10:54)
[2024-09-19] MEDS ORDERED: NA CHLORIDE 0.9% 1,000 ML ONE (10:57)
[2024-09-19] MEDS: OXYMETAZOLINE HCL 0.05% 15ML NAS ONE (12:09)
[2024-09-19] MEDS ORDERED: SUGAMMADEX SODIUM 200 MG/2 ML VIAL IV ONE (12:29)
[2024-09-19] MEDS: CEFAZOLIN SODIUM 2 GM/VIAL ONE (13:03)
[2024-09-19] MEDS ORDERED: GLYCOPYRROLATE 0.2 MG/ML SYR ONE (13:04)
[2024-09-19] MEDS: LIDOCAINE HCL/EPINEPHRINE 20 ML MDV ONE (13:05)
[2024-09-19] MEDS: TRANEXAMIC ACID 1,000 MG/10 ML VIAL IV ONE ×2 (14:15→15:00)
[2024-09-19] MEDS: Ringers Lactate 1,000 ML IV ONE (15:50)
[2024-09-19] MEDS ORDERED: NALOXONE HCL 2 MG/2 ML VIAL ONE (16:16)
[2024-09-19] MEDS ORDERED: HYDROMORPHONE HCL 1 MG/ML INJ ONE (16:52)
[2024-09-19] MEDS: HYDROMORPHONE HCL 1 MG/ML INJ ONE (17:00)
[2024-09-19] MEDS: LABETALOL 20 MG/4ML SYRINGE IV ONE (17:15)
[2024-09-19 18:23] VITALS: O2SAT 97
[2024-09-19 18:34] VITALS: BP 145/90; TEMP 97
--- NOTE | 2024-10-06 06:13 | OP ---
Date of Procedure: 09/19/2024 Surgeon: TC REYES Preoperative Diagnoses: 1. Bilateral chronic sphenoid, ethmoid, maxillary, and frontal sinusitis. 2. Bilateral nasal/sinus polyps. 3. Left aftab bullosa. 4. Bilateral inferior turbinate hypertrophy. Postoperative Diagnoses: 1. Bilateral chronic sphenoid, ethmoid, maxillary, and frontal sinusitis. 2. Bilateral nasal/sinus polyps. 3. Left aftab bullosa. 4. Bilateral inferior turbinate hypertrophy. Procedures: 1. Bilateral diagnostic sinus endoscopy with stereotactic radio image guidance. 2. Bilateral sphenoid sinusotomy with lavage. 3. Bilateral maxillary sinus antrostomies with lavage. 4. Bilateral anterior ethmoidectomies. 5. Excision of left aftab bullosa. 6. Submucosal ablation of bilateral inferior turbinates. 7. Bilateral nasal/sinus polypectomies. Anesthesia: General endotracheal anesthesia was administered. I also infiltrated approximately 12 mL of 1% lidocaine with 1:100,000 epinephrine into bilateral inferior turbinate mucosa and bilateral axilla of middle turbinates and bilateral posterior nasal septum. Estimated Blood Loss: Above average, 100 mL. Findings: Extensive polyposis involving both nasal cavities extending into bilateral anterior ethmoid sinuses and obstructing bilateral frontal sinus ostia and sphenoid ethmoidal recesses and bilateral OMC occlusion from polyps and obstructive left aftab bullosa. The patient has pre-existing nasal septal perforation from remote septoplasty surgery. Moderate oozing of blood throughout case. Complications: The patient had above average oozing of blood, which required 2 doses of tranexamic acid during the case to decrease blood flow. This was successful after the second dose. Disposition: Stable. The patient tolerated the procedure well. Indications For Procedure: The patient is a 34-year-old male with chronic bilateral nasal obstruction secondary to sinus effusion and polyps. These were indications to bring the patient to operative suite for the above-mentioned procedures. We instructed that he decrease his alcohol or taper off alcohol completely at least 2 weeks before surgery and he agreed to do so. He understood, all questions were answered. Risks versus benefits, complications were explained in detail and a consent form was signed, was placed in the chart. Description Of Procedure: The patient was transferred from the preoperative holding area to the operative suite by Department of Anesthesia, placed on the operating table supine, sedated, and intubated in normal fashion. Table was rotated to 180 degrees and head rest was placed. Afrin-soaked nasal pledgets were used for vasoconstriction and decongestion. I infiltrated approximately 8 mL of 1% lidocaine with 1:100,000 epinephrine into bilateral inferior turbinate mucosa. The patient was then sterilely prepped and draped and calibrated to the stereotactic radial image guidance system. Once calibration to stereotactic image guidance was complete, all instruments were checked and calibration was accurate. I removed the pledgets and inserted a 0-degree rigid nasal endoscope into the left nasal cavity along the floor of the nasal septum back to the posterior choanae. I infiltrated approximately 2 mL of 1% lidocaine with 1:00,000 epinephrine at the area of the sphenoid sinus ostial opening. I noted that there was an occlusion of the ostial opening with polypoid tissue. Thus, I removed with a 4.3 microdebrider blade and then I lavaged the left sphenoid sinus with approximately 20 mL of sterile saline. I then repeated this process on the right side, whereby I injected about 2 mL of 1% lidocaine with 1:100,000 epinephrine at the area of the posterior right nasal septum where the sphenoid sinus ostium is typically located about 30 degrees above the nasal floor. There was polypoid tissue occluding the ostial opening. Thus, I used a microdebrider to remove. I then lavaged the right sphenoid sinus with approximately 20 mL of sterile saline. The patient had mild bleeding during this process. My attention was then placed to the polypoid tissue occluding the left ethmoid sinus and ostiomeatal complex. I had to excise a left aftab bullosa with endoscopic scissors and hemostasis was achieved with suction Bovie. I then was able to clearly see the ethmoid bulla, which was covered with polyps. I removed the polyps back to the level of the left ethmoid bulla and then I entered the left ethmoid bulla and performed an anterior ethmoidectomy. The patient had moderate bleeding at this point. Cauterization was needed with suction Bovie. I infiltrated approximately 0.5 cc of 1% lidocaine with 1:100,000 epinephrine at the junction of the uncinate and the left middle turbinate axilla. I had to remove a portion of the uncinate with a microdebrider in order to expose the left maxillary ostial opening. I then used a microdebrider blade and a balloon to help open up the left maxillary sinus opening. I lavaged the left maxillary sinus with approximately 60 mL of sterile saline and patient still had moderate bleeding at this point. I decided at this point to direct anesthesia to give 1.0 gram of tranexamic acid. I inserted Afrin-soaked nasal pledgets and turned my attention to the right side. I removed right anterior ethmoid sinus disease and ethmoid polyps utilizing the microdebrider blade. I had to infiltrate approximately 0.5 mL of 1% lidocaine with 1:100,000 epinephrine at the axilla of the right middle turbinate and uncinate process. I then medialized the left middle turbinate to expose the occluded ostiomeatal complex. I then used a sinus balloon and the microdebrider to open up the right maxillary sinus ostial natural opening, which was occluded. I then lavaged the right maxillary sinus with 60 mL of sterile saline. I also had to perform a right partial uncinectomy in order to visualize the natural ostium. At this point, patient still had moderate oozing of blood, thus about 30 minutes after giving the first dose of tranexamic acid, we gave another dose of 1.0 gram and this seemed to work within approximately 5-10 minutes cutting the rate of bleeding down at least 85%. The patient had significant inflammation of the mucosa. I then removed the pledgets from the left nasal cavity and I spent approximately 15 minutes trying to locate the left frontal recess, which was significantly stenotic and due to increased bleeding, I decided to abort this portion of the surgery. I also tried to locate the right frontal recess and this took about 15-20 minutes using the image guidance plus direct visualization and due to inflammation and oozing of blood, it was decided that this part of the procedure would be aborted. I inserted FloSeal and MeroGel packing into bilateral nasal cavities and approximately 5 minutes after placing, hemostasis had been achieved. A mustache dressing was placed. The entire procedure was performed under stereotactic image guidance, which was very helpful considering he had distortion of the anatomy due to inflammation. He was then transferred back to Department of Anesthesia in stable condition and transferred to PACU and subsequently discharged home on antibiotic and analgesic medication and will follow up in 1 week or sooner if needed. JOSEF/ELINA Voice ID: [id number] Report ID: [id number] MTDD
== END 2024-09-19 18:33 | disposition home or self-care (01) ==
LOC: OR 10:02
PROVIDERS: ATTEND Otolaryngology Facial Plastic Surgery
PROC: 099Q8ZZ Drainage of Right Maxillary Sinus, Via Natural or Artificial Opening Endoscopic (ICD-10-PCS; 2024-09-19)
PROC: 09TX8ZZ Resection of Left Sphenoid Sinus, Via Natural or Artificial Opening Endoscopic (ICD-10-PCS; 2024-09-19)
PROC: 09TW8ZZ Resection of Right Sphenoid Sinus, Via Natural or Artificial Opening Endoscopic (ICD-10-PCS; 2024-09-19)
PROC: 09BL8ZZ Excision of Nasal Turbinate, Via Natural or Artificial Opening Endoscopic (ICD-10-PCS; 2024-09-19)
PROC: 095L8ZZ Destruction of Nasal Turbinate, Via Natural or Artificial Opening Endoscopic (ICD-10-PCS; 2024-09-19)
PROC: 09BX8ZZ Excision of Left Sphenoid Sinus, Via Natural or Artificial Opening Endoscopic (ICD-10-PCS; 2024-09-19)
PROC: 09BW8ZZ Excision of Right Sphenoid Sinus, Via Natural or Artificial Opening Endoscopic (ICD-10-PCS; 2024-09-19)
PROC: 8E09XBZ Computer Assisted Procedure of Head and Neck Region (ICD-10-PCS; 2024-09-19)
PROC: 099R8ZZ Drainage of Left Maxillary Sinus, Via Natural or Artificial Opening Endoscopic (ICD-10-PCS; principal; 2024-09-19 12:50)
DX: J32.2 Chronic ethmoidal sinusitis (principal); J32.4 Chronic pansinusitis; J34.89 Other specified disorders of nose and nasal sinuses; J31.0 Chronic rhinitis; J32.0 Chronic maxillary sinusitis; J32.1 Chronic frontal sinusitis; J33.8 Other polyp of sinus
CPT/HCPCS: 31254; 31256; 31287 ×2; 31240; 30801; 80048; 36415; 82947; 61782; J2704; J2310; J2003; J2250; J3010 ×3; J1100 ×2; J1171 ×2; J2405; J7120 ×2; J7050; J7040; C2618